=== PATIENT | male | born 1945 | race Caucasian/White ===

== ENCOUNTER → 2017-09-04 12:06 | Outpatient (CLI) | payer MEDICARE, OTHER, SELFPAY ==
[2017-09-04 13:58] LABS: Absolute Lymphocyte Count 2.67 X10^3/ul (0.83-4.51); Absolute Neutrophil Count 3.8 X10^3/uL (2.0-7.7); Basophil# 0.03 X10^3/uL; Basophil% 0.4 % (0-1); Eosinophil# 0.11 X10^3/uL; Eosinophils% 1.5 % (0-5); Hematocrit 41.1 % (40-54); Hemoglobin 13.3 g/dl (13.0-16.5); Lymphocyte # 2.67 X10^3/ul (4.0); Lymphocyte % 37.6 % (19-41); Mean Corp Hgb Conc 32.4 g/gl (32-36); Mean Corpuscular Hgb 29.9 pg (27.0-32.0); Mean Corpuscular Volume 92.4 fL (80-94); Mean Platelet Vol. 11.2 fl (6.2-12.0); Monocyte# 0.48 X10^3/uL; Monocyte% 6.8 % (0-10); Neutrophil # 3.82 X10^3/uL (2.7-7.7); Neutrophil % 53.7 % (47-70); Platelet Count 312 K/mm3 (150-450); RBC Distribution Width CV 15.9 % (11.6-14.6); RBC Distribution Width SD 52.2 fl (35.1-43.9); Red Blood Count 4.45 M/mm3 (4.6-6.2); White Blood Count 7.1 K/mm3 (4.4-11.0)
[2017-09-04 14:03] LABS: POSITIVE COUNT NO; POSITIVE DIFFERENTIAL NO; POSITIVE MORPHOLOGY NO
[2017-09-04 14:09] LABS: ALB/GLOB Ratio 0.9 RATIO (0.9-2.4); AST(SGOT) 22 U/L (15-37); Alanine Aminotransfer ALT/SGPT 23 U/L (16-61); Albumin, Serum 3.3 g/dL (3.2-5.0); Alkaline Phosphatase 61 U/L (45-117); Anion Gap 4 (5-15); BUN 13 mg/dL (7-18); BUN/Creat Ratio 13.7 RATIO (10-20); Calcium,Total 8.7 mg/dL (8.5-10.1); Chloride 107 mmol/L (98-107); Creatinine, Serum 0.95 mg/dL (0.70-1.30); EST Glomerular Filtration Rate 83 mL/min (>60); Est Glom Filt Rate - Afr Amer 100 mL/min (>60); Globulin 3.7 g/dL (2.2-4.2); Glucose 94 mg/dL (74-106); Potassium 4.2 mmol/L (3.5-5.1); Sodium Level 143 mmol/L (136-145)
== END ==
PROVIDERS: Family Provider Internal Medicine; PCP Internal Medicine; Visit Provider Internal Medicine Rheumatology
DX: M05.70 Rheumatoid arthritis with rheumatoid factor of unspecified site without organ or systems involvement (principal); J44.9 Chronic obstructive pulmonary disease, unspecified; E78.5 Hyperlipidemia, unspecified; N40.1 Benign prostatic hyperplasia with lower urinary tract symptoms; Z79.899 Other long term (current) drug therapy
CPT/HCPCS: 36415; 80053; 85025

== ENCOUNTER → 2017-11-21 11:37 | Outpatient (CLI) | payer MEDICARE, OTHER, SELFPAY ==
[2017-11-21 14:25] LABS: Erythrocyte Sedimentation Rate 10 mm/hr (0-20)
[2017-11-21 14:26] LABS: Absolute Lymphocyte Count 3.09 X10^3/ul (0.83-4.51); Absolute Neutrophil Count 3.9 X10^3/uL (2.0-7.7); Basophil# 0.02 X10^3/uL; Basophil% 0.3 % (0-1); Eosinophil# 0.17 X10^3/uL; Eosinophils% 2.2 % (0-5); Hematocrit 42.6 % (40-54); Hemoglobin 13.5 g/dl (13.0-16.5); Lymphocyte # 3.09 X10^3/ul (4.0); Lymphocyte % 39.9 % (19-41); Mean Corp Hgb Conc 31.7 g/gl (32-36); Mean Corpuscular Hgb 29.4 pg (27.0-32.0); Mean Corpuscular Volume 92.8 fL (80-94); Monocyte# 0.54 X10^3/uL; Neutrophil # 3.91 X10^3/uL (2.7-7.7); Neutrophil % 50.5 % (47-70); Platelet Count 308 K/mm3 (150-450); RBC Distribution Width CV 17.4 % (11.6-14.6); RBC Distribution Width SD 58.3 fl (35.1-43.9); Red Blood Count 4.59 M/mm3 (4.6-6.2); White Blood Count 7.7 K/mm3 (4.4-11.0)
[2017-11-21 14:27] LABS: ALB/GLOB Ratio 0.9 RATIO (0.9-2.4); AST(SGOT) 22 U/L (15-37); Alanine Aminotransfer ALT/SGPT 24 U/L (16-61); Albumin, Serum 3.4 g/dL (3.2-5.0); Alkaline Phosphatase 62 U/L (45-117); Anion Gap 6 (5-15); BUN 13 mg/dL (7-18); BUN/Creat Ratio 13.9 RATIO (10-20); CRP 8.94 mg/L (0.0-3.0); Calcium,Total 8.3 mg/dL (8.5-10.1); Chloride 104 mmol/L (98-107); Creatinine, Serum 0.94 mg/dL (0.70-1.30); EST Glomerular Filtration Rate 84 mL/min (>60); Est Glom Filt Rate - Afr Amer 102 mL/min (>60); Globulin 3.7 g/dL (2.2-4.2); Glucose 79 mg/dL (74-106); POSITIVE COUNT NO; POSITIVE DIFFERENTIAL NO; POSITIVE MORPHOLOGY NO; Potassium 4.1 mmol/L (3.5-5.1); Protein, Total 7.1 g/dL (6.4-8.2); Sodium Level 143 mmol/L (136-145)
== END ==
PROVIDERS: Family Provider Internal Medicine; PCP Internal Medicine; Visit Provider Internal Medicine Rheumatology
DX: M05.70 Rheumatoid arthritis with rheumatoid factor of unspecified site without organ or systems involvement (principal); J44.9 Chronic obstructive pulmonary disease, unspecified; E78.5 Hyperlipidemia, unspecified; N40.1 Benign prostatic hyperplasia with lower urinary tract symptoms; Z79.899 Other long term (current) drug therapy
CPT/HCPCS: 36415; 80053; 85025; 85652; 86140

== ENCOUNTER → 2018-02-12 08:54 | Outpatient (CLI) | payer MEDICARE, OTHER, SELFPAY ==
[2018-02-12 10:45] LABS: Erythrocyte Sedimentation Rate 24 mm/hr (0-20)
[2018-02-12 10:47] LABS: Absolute Neutrophil Count 4.9 X10^3/uL (2.0-7.7); Basophil# 0.05 X10^3/uL; Basophil% 0.5 % (0-1); Eosinophil# 0.23 X10^3/uL; Eosinophils% 2.5 % (0-5); Hematocrit 41.5 % (40-54); Hemoglobin 14.1 g/dl (13.0-16.5); Lymphocyte % 36.8 % (19-41); Mean Corpuscular Hgb 32.3 pg (27.0-32.0); Mean Corpuscular Volume 95.2 fL (80-94); Monocyte# 0.63 X10^3/uL; Monocyte% 6.8 % (0-10); Neutrophil # 4.91 X10^3/uL (2.7-7.7); Neutrophil % 53.3 % (47-70); Platelet Count 305 K/mm3 (150-450); RBC Distribution Width CV 15.5 % (11.6-14.6); RBC Distribution Width SD 52.4 fl (35.1-43.9); Red Blood Count 4.36 M/mm3 (4.6-6.2); White Blood Count 9.2 K/mm3 (4.4-11.0)
[2018-02-12 10:52] LABS: POSITIVE COUNT NO; POSITIVE DIFFERENTIAL NO; POSITIVE MORPHOLOGY NO
[2018-02-12 10:53] LABS: ALB/GLOB Ratio 0.9 RATIO (0.9-2.4); AST(SGOT) 21 U/L (15-37); Alanine Aminotransfer ALT/SGPT 26 U/L (16-61); Albumin, Serum 3.2 g/dL (3.2-5.0); Alkaline Phosphatase 63 U/L (45-117); Anion Gap 9 (5-15); BUN 16 mg/dL (7-18); CRP 6.49 mg/L (0.0-3.0); Calcium,Total 8.6 mg/dL (8.5-10.1); Chloride 107 mmol/L (98-107); Creatinine, Serum 0.89 mg/dL (0.70-1.30); EST Glomerular Filtration Rate 90 mL/min (>60); Est Glom Filt Rate - Afr Amer 108 mL/min (>60); Globulin 3.7 g/dL (2.2-4.2); Glucose 88 mg/dL (74-106); Potassium 4.1 mmol/L (3.5-5.1); Protein, Total 6.9 g/dL (6.4-8.2); Sodium Level 144 mmol/L (136-145)
== END ==
PROVIDERS: Family Provider Internal Medicine; PCP Internal Medicine; Referring Provider Internal Medicine Rheumatology; Visit Provider Internal Medicine Rheumatology
DX: M05.70 Rheumatoid arthritis with rheumatoid factor of unspecified site without organ or systems involvement (principal); J44.9 Chronic obstructive pulmonary disease, unspecified; E78.5 Hyperlipidemia, unspecified; N40.1 Benign prostatic hyperplasia with lower urinary tract symptoms; Z79.899 Other long term (current) drug therapy
CPT/HCPCS: 36415; 80053; 85025; 85652; 86140

== ENCOUNTER → 2018-11-16 10:50 | Outpatient (CLI) | payer MEDICARE, OTHER, SELFPAY ==
[2018-11-16 12:40] LABS: Absolute Lymphocyte Count 3.28 X10^3/ul (0.83-4.51); Absolute Neutrophil Count 4.5 X10^3/uL (2.0-7.7); Basophil# 0.03 X10^3/uL; Basophil% 0.4 % (0-1); Eosinophils% 2.4 % (0-5); Hematocrit 39.7 % (40-54); Hemoglobin 12.7 g/dl (13.0-16.5); Lymphocyte # 3.28 X10^3/ul (4.0); Lymphocyte % 38.6 % (19-41); Mean Corpuscular Volume 93.9 fL (80-94); Mean Platelet Vol. 10.8 fl (6.2-12.0); Monocyte# 0.51 X10^3/uL; Neutrophil # 4.46 X10^3/uL (2.7-7.7); Neutrophil % 52.4 % (47-70); Platelet Count 321 K/mm3 (150-450); RBC Distribution Width CV 16.2 % (11.6-14.6); RBC Distribution Width SD 55.3 fl (35.1-43.9); Red Blood Count 4.23 M/mm3 (4.6-6.2); White Blood Count 8.5 K/mm3 (4.4-11.0)
[2018-11-16 12:51] LABS: POSITIVE COUNT NO; POSITIVE DIFFERENTIAL NO; POSITIVE MORPHOLOGY NO
[2018-11-16 13:29] LABS: ALB/GLOB Ratio 0.9 RATIO (0.9-2.4); AST(SGOT) 18 U/L (15-37); Alanine Aminotransfer ALT/SGPT 18 U/L (16-61); Albumin, Serum 3.4 g/dL (3.2-5.0); Alkaline Phosphatase 62 U/L (45-117); Anion Gap 7 (5-15); BUN 17 mg/dL (7-18); BUN/Creat Ratio 16.5 RATIO (10-20); Calcium,Total 8.9 mg/dL (8.5-10.1); Chloride 106 mmol/L (98-107); Creatinine, Serum 1.03 mg/dL (0.70-1.30); EST Glomerular Filtration Rate 75 mL/min (>60); Est Glom Filt Rate - Afr Amer 91 mL/min (>60); Globulin 3.6 g/dL (2.2-4.2); Glucose 97 mg/dL (74-106); Potassium 4.2 mmol/L (3.5-5.1); Sodium Level 142 mmol/L (136-145)
== END ==
PROVIDERS: Family Provider Internal Medicine; PCP Internal Medicine; Referring Provider Internal Medicine Rheumatology; Visit Provider Internal Medicine Rheumatology
DX: M05.70 Rheumatoid arthritis with rheumatoid factor of unspecified site without organ or systems involvement (principal); J44.9 Chronic obstructive pulmonary disease, unspecified; E78.5 Hyperlipidemia, unspecified; N40.1 Benign prostatic hyperplasia with lower urinary tract symptoms; Z79.899 Other long term (current) drug therapy
CPT/HCPCS: 36415; 80053; 85025

== ENCOUNTER → 2019-02-18 09:36 | Outpatient (CLI) | payer MEDICARE, OTHER, SELFPAY ==
[2019-02-18 12:37] LABS: Absolute Lymphocyte Count 2.74 X10^3/uL (0.83-4.51); Absolute Neutrophil Count 3.9 X10^3/uL (2.0-7.7); Basophil# 0.05 X10^3/uL; Basophil% 0.7 % (0-1); Eosinophil# 0.19 X10^3/uL; Eosinophils% 2.6 % (0-5); Hematocrit 42.7 % (40-54); Hemoglobin 13.6 g/dL (13.0-16.5); Lymphocyte # 2.74 X10^3/ul (4.0); Lymphocyte % 37.3 % (19-41); Mean Corp Hgb Conc 31.9 g/dL (32-36); Mean Corpuscular Hgb 30.8 pg (27.0-32.0); Mean Corpuscular Volume 96.6 fL (80-94); Mean Platelet Vol. 11.4 fl (6.2-12.0); Monocyte# 0.42 X10^3/uL; Monocyte% 5.7 % (0-10); NRBC Flagged by Analyzer 0 % (0-5); Neutrophil # 3.93 X10^3/uL (2.7-7.7); Neutrophil % 53.4 % (47-70); POSITIVE MORPHOLOGY YES; Platelet Count 292 K/mm3 (150-450); RBC Distribution Width CV 15.4 % (11.6-14.6); RBC Distribution Width SD 54.7 fl (35.1-43.9); Red Blood Count 4.42 M/mm3 (4.6-6.2); White Blood Count 7.4 K/mm3 (4.4-11.0)
[2019-02-18 12:40] LABS: Differential Indicated SCAN CRITERIA MET
[2019-02-18 12:41] LABS: AST(SGOT) 20 U/L (15-37); Alanine Aminotransfer ALT/SGPT 23 U/L (16-61); Albumin, Serum 3.5 g/dL (3.2-5.0); Alkaline Phosphatase 65 U/L (45-117); Anion Gap 9 (5-15); BUN 18 mg/dL (7-18); BUN/Creat Ratio 17.6 RATIO (10-20); Calcium,Total 8.5 mg/dL (8.5-10.1); Chloride 107 mmol/L (98-107); Creatinine, Serum 1.02 mg/dL (0.70-1.30); EST Glomerular Filtration Rate 76 mL/min (>60); Est Glom Filt Rate - Afr Amer 92 mL/min (>60); Globulin 3.5 g/dL (2.2-4.2); Glucose 77 mg/dL (74-106); Potassium 4.2 mmol/L (3.5-5.1); Sodium Level 144 mmol/L (136-145)
[2019-02-18 13:18] LABS: Reactive Lymphocyte RARE
== END ==
PROVIDERS: Family Provider Internal Medicine; PCP Internal Medicine; Referring Provider Internal Medicine Rheumatology; Visit Provider Internal Medicine Rheumatology
DX: M05.70 Rheumatoid arthritis with rheumatoid factor of unspecified site without organ or systems involvement (principal); J44.9 Chronic obstructive pulmonary disease, unspecified; E78.5 Hyperlipidemia, unspecified; N40.1 Benign prostatic hyperplasia with lower urinary tract symptoms; Z79.899 Other long term (current) drug therapy
CPT/HCPCS: 36415; 80053; 85025

== ENCOUNTER → 2019-02-19 12:28 | Outpatient (CLI) | payer MEDICARE, OTHER, SELFPAY ==
[2019-02-19 12:01] VITALS: BMI 24.7
--- NOTE | 2019-02-19 12:31 | CT_ITS ---
STUDY: CT CHEST WITHOUT CONTRAST- LOW DOSE SCREENING PROTOCOL REASON FOR EXAM: Male, 73 years old. Former smoker. Quit smoking less than 15 years ago 45 pack per year history. No current symptoms of lung cancer or pulmonary infection. Shared decision-making with referring PCP documented in patient's record. RADIATION DOSAGE (If Supplied By Facility): CTDIvol = ( 3.02 ) mGy, DLP = ( 131.34 ) mGycm TECHNIQUE: Low dose screening CT examination performed from the base of the neck to the upper abdomen. Sagittal and coronal reformatted images performed. Sagittal and coronal MIP images provided. The measurements provided are average, rounded measurements per ACR guidelines. COMPARISON: None. FINDINGS: Mild emphysematous changes. Some groundglass density in the inferior right lower lobe the lungs consistent with subsegmental atelectasis or pneumonitis. No noncalcified nodule or mass. There is no demonstrated pleural abnormality. Normal heart and pericardium. There are calcifications of the coronary arteries. Normal mediastinum. Normal hilar regions. Normal unenhanced pulmonary arteries. Normal aorta arch and descending thoracic aorta. Normal osseous structures. There is no demonstrated abnormality of the visualized upper abdomen. CT/Low Dose CT Lung Screening IMPRESSION: 1. No significant indeterminate incidental findings requiring additional imaging. 2. Incidental findings include some right lower lobe subsegmental atelectasis or pneumonitis.. ASSESSMENT CATEGORY: LungRADS 1 - Negative. Continue annual screening with LDCT in 12 months, per established ACR guidelines. Electronically Signed: Angel Castaneda MD at 13:27 EDT Tel , Service support ,
== END ==
PROVIDERS: Family Provider Internal Medicine; PCP Internal Medicine; Referring Provider Nurse Practitioner Family; Visit Provider Nurse Practitioner Family
DX: Z12.2 Encounter for screening for malignant neoplasm of respiratory organs (principal); Z87.891 Personal history of nicotine dependence
CPT/HCPCS: G0297

== ENCOUNTER → 2019-02-20 10:45 | Outpatient (CLI) | payer MEDICARE, OTHER, SELFPAY ==
[2019-02-19 12:01] VITALS: BMI 24.7
--- NOTE | 2019-02-20 11:10 | ECHOD_ITS ---
Reason For Study: RBBB Procedure This was a 2D Doppler, Color Flow transthoracic echocardiogram. Exam performed in department. Left Ventricle Normal size and thickness. The estimated ejection fraction is 65 %. Stage 1 diastolic dysfunction. No regional wall motion abnormalities noted. Right Ventricle Normal size and thickness. Normal systolic function. Atria Normal left atrium. Normal right atrium. Normal atrial septum. Mitral Valve The mitral valve is structurally normal. No prolapse or stenosis seen. Trivial mitral valve insufficiency. Tricuspid Valve Normal tricuspid valve. Trivial tricuspid valve insufficiency. Right ventricular systolic pressure estimated to be 23 mmHg. Aortic Valve Normal aortic valve. Trisinus/trileaflet aortic valve. Pulmonic Valve Normal pulmonic valve. Great Vessels Normal aortic root. Normal arch. Normal inferior vena cava. Inferior vena cava collapse with sniff. Pericardium/Pleural No pericardial effusion. MMode/2D Measurements & Calculations LVIDd: 4.7 cm IVSd: 0.87 cm Ao root diam: 3.8 cm LVIDs: 3.0 cm LVPWd: 1.0 cm RVDd: 3.5 cm FS: 35.5 % LAV(MOD-bp): 47.0 ml LA A4 area: 16.0 cm2 LA dimension(2D): 3.0 cm LAV(MOD-bp) Indexed: 23.1 ml/m2 LAV(MOD-sp2): 53.1 ml LAV(MOD-sp4): 39.7 ml RA A4 area: 15.9 cm2 Time Measurements MV dec time: 0.26 sec Doppler Measurements & Calculations MV E max arpan: 64.8 cm/sec Lat Peak E' Arpan: 10.0 cm/sec Med Peak E' Arpan: 9.1 cm/sec MV A max arpan: 76.0 cm/sec E/E' lat: 6.5 E/E' med: 7.1 MV E/A: 0.85 Ao V2 max: 127.0 cm/sec LV V1 max: 102.8 cm/sec PA V2 max: 122.3 cm/sec Ao max P.5 mmHg LV V1 max P.2 mmHg TR max arpan: 212.9 cm/sec TR max P.1 mmHg Interpretation Summary The estimated ejection fraction is 65 %. Stage 1 diastolic dysfunction. Trivial mitral valve insufficiency. Trivial tricuspid valve insufficiency. Right ventricular systolic pressure estimated to be 23 mmHg. Compared to echo report dated , no appreciable changes noted. Ordering Physician: Li Husain Referring Physician: Li Husain Performed By: Itzel Lozano, RUTHY, RVT
== END ==
PROVIDERS: Family Provider Internal Medicine; PCP Internal Medicine; Referring Provider Internal Medicine; Visit Provider Internal Medicine
DX: Z00.01 Encounter for general adult medical examination with abnormal findings (principal); I08.1 Rheumatic disorders of both mitral and tricuspid valves; I45.10 Unspecified right bundle-branch block; I11.9 Hypertensive heart disease without heart failure
CPT/HCPCS: 93306

== ENCOUNTER → 2019-09-25 11:30 | Outpatient (CLI) | payer MEDICARE, OTHER, SELFPAY ==
[2019-02-19 12:01] VITALS: BMI 24.7
[2019-09-25 15:25] LABS: Hemoglobin 12.9 g/dL (13.0-16.5); Mean Corp Hgb Conc 31.5 g/dL (32-36); Mean Corpuscular Hgb 30.1 pg (27.0-32.0); Mean Corpuscular Volume 95.6 fL (80-94); Mean Platelet Vol. 11.1 fl (6.2-12.0); Platelet Count 326 K/mm3 (150-450); RBC Distribution Width CV 15.4 % (11.6-14.6); RBC Distribution Width SD 53.4 fl (35.1-43.9); Red Blood Count 4.29 M/mm3 (4.6-6.2); White Blood Count 8.7 K/mm3 (4.4-11.0)
[2019-09-25 15:46] LABS: ALB/GLOB Ratio 0.8 RATIO (0.9-2.4); AST(SGOT) 15 U/L (15-37); Alanine Aminotransfer ALT/SGPT 20 U/L (16-61); Albumin, Serum 3.4 g/dL (3.2-5.0); Alkaline Phosphatase 63 U/L (45-117); Anion Gap 6 (5-15); BUN 16 mg/dL (7-18); Calcium,Total 8.7 mg/dL (8.5-10.1); Chloride 105 mmol/L (98-107); Creatinine, Serum 0.89 mg/dL (0.70-1.30); EST Glomerular Filtration Rate 89 mL/min (>60); Est Glom Filt Rate - Afr Amer 108 mL/min (>60); Glucose 83 mg/dL (74-106); Potassium 4.2 mmol/L (3.5-5.1); Protein, Total 7.4 g/dL (6.4-8.2); Sodium Level 141 mmol/L (136-145)
[2019-09-27 17:59] LABS: Carcinoembryonic Antigen 1.2 ng/mL (0.0-4.7)
== END ==
PROVIDERS: PCP Internal Medicine; Referring Provider Colon & Rectal Surgery; Visit Provider Colon & Rectal Surgery
DX: Z85.038 Personal history of other malignant neoplasm of large intestine (principal)
CPT/HCPCS: 36415; 80053; 82378; 85027

== ENCOUNTER → 2020-01-08 13:41 | Outpatient (CLI) | payer MEDICARE, OTHER, SELFPAY ==
[2019-02-19 12:01] VITALS: BMI 24.7
[2020-01-08 15:52] LABS: Absolute Lymphocyte Count 3.92 X10^3/uL (0.83-4.51); Absolute Neutrophil Count 4.9 X10^3/uL (2.0-7.7); Basophil# 0.03 X10^3/uL; Basophil% 0.3 % (0-1); Eosinophil# 0.14 X10^3/uL; Eosinophils% 1.4 % (0-5); Hematocrit 41.6 % (40-54); Hemoglobin 13.5 g/dL (13.0-16.5); Lymphocyte # 3.92 X10^3/ul (4.0); Lymphocyte % 40.6 % (19-41); Mean Corp Hgb Conc 32.5 g/dL (32-36); Mean Corpuscular Hgb 31.1 pg (27.0-32.0); Mean Corpuscular Volume 95.9 fL (80-94); Mean Platelet Vol. 10.9 fl (6.2-12.0); Monocyte# 0.68 X10^3/uL; NRBC Flagged by Analyzer 0 % (0-5); Neutrophil # 4.87 X10^3/uL (2.7-7.7); Neutrophil % 50.5 % (47-70); Platelet Count 301 K/mm3 (150-450); RBC Distribution Width CV 15.2 % (11.6-14.6); RBC Distribution Width SD 52.8 fl (35.1-43.9); Red Blood Count 4.34 M/mm3 (4.6-6.2); White Blood Count 9.7 K/mm3 (4.4-11.0)
[2020-01-08 16:09] LABS: ALB/GLOB Ratio 0.8 RATIO (0.9-2.4); AST(SGOT) 18 U/L (15-37); Alanine Aminotransfer ALT/SGPT 22 U/L (16-61); Albumin, Serum 3.4 g/dL (3.2-5.0); Alkaline Phosphatase 68 U/L (45-117); Anion Gap 0 (5-15); BUN 16 mg/dL (7-18); BUN/Creat Ratio 15.5 RATIO (10-20); Calcium,Total 8.8 mg/dL (8.5-10.1); Chloride 104 mmol/L (98-107); Creatinine, Serum 1.03 mg/dL (0.70-1.30); EST Glomerular Filtration Rate 75 mL/min (>60); Est Glom Filt Rate - Afr Amer 91 mL/min (>60); Glucose 89 mg/dL (74-106); Potassium 4.2 mmol/L (3.5-5.1); Protein, Total 7.4 g/dL (6.4-8.2); Sodium Level 139 mmol/L (136-145)
== END ==
PROVIDERS: PCP Internal Medicine; Referring Provider Internal Medicine Rheumatology; Visit Provider Internal Medicine Rheumatology
DX: M05.70 Rheumatoid arthritis with rheumatoid factor of unspecified site without organ or systems involvement (principal); J44.9 Chronic obstructive pulmonary disease, unspecified; E78.5 Hyperlipidemia, unspecified; N40.1 Benign prostatic hyperplasia with lower urinary tract symptoms; Z79.899 Other long term (current) drug therapy
CPT/HCPCS: 36415; 80053; 85025

== ENCOUNTER → 2020-06-16 14:20 | Outpatient (CLI) | payer MEDICARE, OTHER, SELFPAY ==
[2019-02-19 12:01] VITALS: BMI 24.7
[2020-06-16 18:01] LABS: Absolute Lymphocyte Count 4.07 X10^3/uL (0.83-4.51); Absolute Neutrophil Count 5.2 X10^3/uL (2.0-7.7); Basophil# 0.04 X10^3/uL; Basophil% 0.4 % (0-1); Eosinophil# 0.12 X10^3/uL; Eosinophils% 1.2 % (0-5); Hematocrit 41.6 % (40-54); Hemoglobin 13.6 g/dL (13.0-16.5); Lymphocyte # 4.07 X10^3/ul (4.0); Lymphocyte % 40.3 % (19-41); Mean Corp Hgb Conc 32.7 g/dL (32-36); Mean Corpuscular Hgb 31.3 pg (27.0-32.0); Mean Corpuscular Volume 95.6 fL (80-94); Mean Platelet Vol. 11.2 fl (6.2-12.0); Monocyte# 0.66 X10^3/uL; Monocyte% 6.5 % (0-10); NRBC Flagged by Analyzer 0 % (0-5); Neutrophil # 5.19 X10^3/uL (2.7-7.7); Neutrophil % 51.3 % (47-70); Platelet Count 311 K/mm3 (150-450); RBC Distribution Width CV 14.4 % (11.6-14.6); RBC Distribution Width SD 50.2 fl (35.1-43.9); Red Blood Count 4.35 M/mm3 (4.6-6.2); White Blood Count 10.1 K/mm3 (4.4-11.0)
[2020-06-16 18:25] LABS: ALB/GLOB Ratio 0.9 RATIO (0.9-2.4); AST(SGOT) 22 U/L (15-37); Alanine Aminotransfer ALT/SGPT 23 U/L (16-61); Albumin, Serum 3.5 g/dL (3.2-5.0); Alkaline Phosphatase 70 U/L (45-117); Anion Gap 7 (5-15); BUN 19 mg/dL (7-18); BUN/Creat Ratio 17.6 RATIO (10-20); Calcium,Total 8.8 mg/dL (8.5-10.1); Chloride 104 mmol/L (98-107); Creatinine, Serum 1.08 mg/dL (0.70-1.30); EST Glomerular Filtration Rate 71 mL/min (>60); Est Glom Filt Rate - Afr Amer 86 mL/min (>60); Globulin 3.8 g/dL (2.2-4.2); Glucose 79 mg/dL (74-106); Potassium 4.1 mmol/L (3.5-5.1); Protein, Total 7.3 g/dL (6.4-8.2); Sodium Level 140 mmol/L (136-145)
== END ==
PROVIDERS: PCP Internal Medicine; Referring Provider Internal Medicine Rheumatology; Visit Provider Internal Medicine Rheumatology
DX: M05.70 Rheumatoid arthritis with rheumatoid factor of unspecified site without organ or systems involvement (principal); J44.9 Chronic obstructive pulmonary disease, unspecified; E78.5 Hyperlipidemia, unspecified; N40.1 Benign prostatic hyperplasia with lower urinary tract symptoms; Z79.899 Other long term (current) drug therapy
CPT/HCPCS: 36415; 80053; 85025

== ENCOUNTER → 2020-12-02 11:53 | Outpatient (CLI) | payer MEDICARE, OTHER, SELFPAY ==
[2019-02-19 12:01] VITALS: BMI 24.7
[2020-12-02 15:14] LABS: Absolute Lymphocyte Count 4.79 X10^3/uL (0.83-4.51); Absolute Neutrophil Count 4.5 X10^3/uL (2.0-7.7); Basophil# 0.05 X10^3/uL; Basophil% 0.5 % (0-1); Eosinophil# 0.17 X10^3/uL; Eosinophils% 1.7 % (0-5); Hematocrit 43.1 % (40-54); Hemoglobin 13.8 g/dL (13.0-16.5); Lymphocyte # 4.79 X10^3/ul (0.83-4.51); Lymphocyte % 47.1 % (19-41); Mean Corpuscular Hgb 30.5 pg (27.0-32.0); Mean Corpuscular Volume 95.4 fL (80-94); Monocyte# 0.69 X10^3/uL; Monocyte% 6.8 % (0-10); NRBC Flagged by Analyzer 0 % (0-5); Neutrophil # 4.46 X10^3/uL (2.7-7.7); Neutrophil % 43.7 % (47-70); Platelet Count 279 K/mm3 (150-450); RBC Distribution Width CV 14.4 % (11.6-14.6); RBC Distribution Width SD 49.3 fl (35.1-43.9); Red Blood Count 4.52 M/mm3 (4.6-6.2); White Blood Count 10.2 K/mm3 (4.4-11.0)
[2020-12-02 15:38] LABS: ALB/GLOB Ratio 0.9 RATIO (0.9-2.4); AST(SGOT) 21 U/L (15-37); Alanine Aminotransfer ALT/SGPT 27 U/L (16-61); Albumin, Serum 3.6 g/dL (3.2-5.0); Alkaline Phosphatase 62 U/L (45-117); Anion Gap 4 (5-15); BUN 15 mg/dL (7-18); Calcium,Total 8.9 mg/dL (8.5-10.1); Chloride 104 mmol/L (98-107); Creatinine, Serum 0.94 mg/dL (0.70-1.30); EST Glomerular Filtration Rate 83 mL/min (>60); Est Glom Filt Rate - Afr Amer 101 mL/min (>60); Glucose 73 mg/dL (74-106); Potassium 3.9 mmol/L (3.5-5.1); Protein, Total 7.6 g/dL (6.4-8.2); Sodium Level 138 mmol/L (136-145)
== END ==
PROVIDERS: PCP Internal Medicine; Referring Provider Internal Medicine Rheumatology; Visit Provider Internal Medicine Rheumatology
DX: M05.70 Rheumatoid arthritis with rheumatoid factor of unspecified site without organ or systems involvement (principal); J44.9 Chronic obstructive pulmonary disease, unspecified; E78.5 Hyperlipidemia, unspecified; N40.1 Benign prostatic hyperplasia with lower urinary tract symptoms; Z79.899 Other long term (current) drug therapy
CPT/HCPCS: 36415; 80053; 85025

== ENCOUNTER → 2021-02-15 14:17 | Outpatient (CLI) | payer MEDICARE, OTHER, SELFPAY ==
[2021-02-15 15:30] LABS: Absolute Lymphocyte Count 4.43 X10^3/uL (0.83-4.51); Absolute Neutrophil Count 4.3 X10^3/uL (2.0-7.7); Basophil# 0.04 X10^3/uL; Basophil% 0.4 % (0-1); Eosinophil# 0.16 X10^3/uL; Eosinophils% 1.7 % (0-5); Hematocrit 42.7 % (40-54); Hemoglobin 13.7 g/dL (13.0-16.5); Lymphocyte # 4.43 X10^3/ul (0.83-4.51); Lymphocyte % 45.8 % (19-41); Mean Corp Hgb Conc 32.1 g/dL (32-36); Mean Corpuscular Hgb 30.9 pg (27.0-32.0); Mean Corpuscular Volume 96.4 fL (80-94); Mean Platelet Vol. 10.9 fl (6.2-12.0); Monocyte# 0.77 X10^3/uL; NRBC Flagged by Analyzer 0 % (0-5); Neutrophil # 4.26 X10^3/uL (2.7-7.7); Neutrophil % 43.9 % (47-70); Platelet Count 269 K/mm3 (150-450); RBC Distribution Width CV 14.8 % (11.6-14.6); RBC Distribution Width SD 52.4 fl (35.1-43.9); Red Blood Count 4.43 M/mm3 (4.6-6.2); White Blood Count 9.7 K/mm3 (4.4-11.0)
[2021-02-15 16:02] LABS: ALB/GLOB Ratio 0.9 RATIO (0.9-2.4); AST(SGOT) 18 U/L (15-37); Alanine Aminotransfer ALT/SGPT 24 U/L (16-61); Albumin, Serum 3.5 g/dL (3.2-5.0); Alkaline Phosphatase 66 U/L (45-117); Anion Gap 5 (5-15); BUN 16 mg/dL (7-18); BUN/Creat Ratio 17.1 RATIO (10-20); Calcium,Total 8.7 mg/dL (8.5-10.1); Chloride 103 mmol/L (98-107); Creatinine, Serum 0.94 mg/dL (0.70-1.30); EST Glomerular Filtration Rate 83 mL/min (>60); Est Glom Filt Rate - Afr Amer 101 mL/min (>60); Globulin 4.1 g/dL (2.2-4.2); Glucose 89 mg/dL (74-106); Protein, Total 7.6 g/dL (6.4-8.2); Sodium Level 138 mmol/L (136-145)
== END ==
PROVIDERS: PCP Internal Medicine; Referring Provider Internal Medicine Rheumatology; Visit Provider Internal Medicine Rheumatology
DX: M05.70 Rheumatoid arthritis with rheumatoid factor of unspecified site without organ or systems involvement (principal); J44.9 Chronic obstructive pulmonary disease, unspecified; E78.5 Hyperlipidemia, unspecified; N40.1 Benign prostatic hyperplasia with lower urinary tract symptoms; Z79.899 Other long term (current) drug therapy
CPT/HCPCS: 36415; 80053; 85025

== ENCOUNTER → 2021-04-27 13:36 | Outpatient (CLI) | payer MEDICARE, OTHER, SELFPAY ==
[2021-04-27 15:13] LABS: Absolute Lymphocyte Count 4.87 X10^3/uL (0.83-4.51); Absolute Neutrophil Count 4.1 X10^3/uL (2.0-7.7); Basophil# 0.04 X10^3/uL; Basophil% 0.4 % (0-1); Eosinophil# 0.19 X10^3/uL; Eosinophils% 1.9 % (0-5); Hematocrit 41.3 % (40-54); Hemoglobin 13.6 g/dL (13.0-16.5); Lymphocyte # 4.87 X10^3/ul (0.83-4.51); Lymphocyte % 49.2 % (19-41); Mean Corp Hgb Conc 32.9 g/dL (32-36); Mean Corpuscular Hgb 31.6 pg (27.0-32.0); Mean Corpuscular Volume 95.8 fL (80-94); Mean Platelet Vol. 11.1 fl (6.2-12.0); Monocyte# 0.65 X10^3/uL; Monocyte% 6.6 % (0-10); NRBC Flagged by Analyzer 0 % (0-5); Neutrophil # 4.12 X10^3/uL (2.7-7.7); Neutrophil % 41.7 % (47-70); Platelet Count 264 K/mm3 (150-450); RBC Distribution Width CV 13.7 % (11.6-14.6); RBC Distribution Width SD 48.1 fl (35.1-43.9); Red Blood Count 4.31 M/mm3 (4.6-6.2); White Blood Count 9.9 K/mm3 (4.4-11.0)
[2021-04-27 15:41] LABS: ALB/GLOB Ratio 0.8 RATIO (0.9-2.4); AST(SGOT) 22 U/L (15-37); Alanine Aminotransfer ALT/SGPT 23 U/L (16-61); Albumin, Serum 3.3 g/dL (3.2-5.0); Alkaline Phosphatase 60 U/L (45-117); Anion Gap 4 (5-15); BUN 18 mg/dL (7-18); BUN/Creat Ratio 20.2 RATIO (10-20); Chloride 105 mmol/L (98-107); Creatinine, Serum 0.89 mg/dL (0.70-1.30); EST Glomerular Filtration Rate 88 mL/min (>60); Est Glom Filt Rate - Afr Amer 107 mL/min (>60); Globulin 3.9 g/dL (2.2-4.2); Glucose 84 mg/dL (74-106); Potassium 4.1 mmol/L (3.5-5.1); Protein, Total 7.2 g/dL (6.4-8.2); Sodium Level 139 mmol/L (136-145)
== END ==
PROVIDERS: PCP Internal Medicine; Referring Provider Internal Medicine Rheumatology; Visit Provider Internal Medicine Rheumatology
DX: M05.70 Rheumatoid arthritis with rheumatoid factor of unspecified site without organ or systems involvement (principal); J44.9 Chronic obstructive pulmonary disease, unspecified; E78.5 Hyperlipidemia, unspecified; N40.1 Benign prostatic hyperplasia with lower urinary tract symptoms; Z79.899 Other long term (current) drug therapy
CPT/HCPCS: 36415; 80053; 85025

== ENCOUNTER → 2021-06-08 13:18 | Outpatient (CLI) | payer MEDICARE, OTHER, SELFPAY ==
[2021-06-08 14:13] LABS: Hematocrit 40.2 % (40-54); Hemoglobin 13.1 g/dL (13.0-16.5); Mean Corp Hgb Conc 32.6 g/dL (32-36); Mean Corpuscular Hgb 30.6 pg (27.0-32.0); Mean Corpuscular Volume 93.9 fL (80-94); Mean Platelet Vol. 10.4 fl (6.2-12.0); Platelet Count 335 K/mm3 (150-450); RBC Distribution Width CV 13.8 % (11.6-14.6); RBC Distribution Width SD 46.6 fl (35.1-43.9); Red Blood Count 4.28 M/mm3 (4.6-6.2); White Blood Count 8.6 K/mm3 (4.4-11.0)
[2021-06-08 14:38] LABS: ALB/GLOB Ratio 0.7 RATIO (0.9-2.4); AST(SGOT) 18 U/L (15-37); Alanine Aminotransfer ALT/SGPT 20 U/L (16-61); Albumin, Serum 3.1 g/dL (3.2-5.0); Alkaline Phosphatase 62 U/L (45-117); Anion Gap 4 (5-15); BUN 18 mg/dL (7-18); BUN/Creat Ratio 21.8 RATIO (10-20); Calcium,Total 8.6 mg/dL (8.5-10.1); Chloride 104 mmol/L (98-107); Creatinine, Serum 0.83 mg/dL (0.70-1.30); EST Glomerular Filtration Rate 96 mL/min (>60); Est Glom Filt Rate - Afr Amer 117 mL/min (>60); Globulin 4.2 g/dL (2.2-4.2); Glucose 91 mg/dL (74-106); Potassium 4.1 mmol/L (3.5-5.1); Protein, Total 7.3 g/dL (6.4-8.2); Sodium Level 137 mmol/L (136-145)
== END ==
PROVIDERS: PCP Internal Medicine
DX: Z85.038 Personal history of other malignant neoplasm of large intestine (principal)
CPT/HCPCS: 36415; 80053; 82378; 85027

== ENCOUNTER 2021-08-26 14:16 | Outpatient (CLI) | payer MEDICARE, OTHER, SELFPAY ==
[2021-08-26 18:13] LABS: Absolute Lymphocyte Count 4.53 X10^3/uL (0.83-4.51); Absolute Neutrophil Count 5.1 X10^3/uL (2.0-7.7); Basophil# 0.04 X10^3/uL; Basophil% 0.4 % (0-1); Eosinophil# 0.15 X10^3/uL; Eosinophils% 1.4 % (0-5); Hematocrit 39.1 % (40-54); Hemoglobin 12.9 g/dL (13.0-16.5); Lymphocyte # 4.53 X10^3/ul (0.83-4.51); Lymphocyte % 42.4 % (19-41); Mean Corpuscular Hgb 31.6 pg (27.0-32.0); Mean Corpuscular Volume 95.8 fL (80-94); Mean Platelet Vol. 11.4 fl (6.2-12.0); Monocyte# 0.82 X10^3/uL; Monocyte% 7.7 % (0-10); NRBC Flagged by Analyzer 0 % (0-5); Neutrophil % 47.7 % (47-70); Platelet Count 240 K/mm3 (150-450); RBC Distribution Width CV 15.1 % (11.6-14.6); RBC Distribution Width SD 52.3 fl (35.1-43.9); Red Blood Count 4.08 M/mm3 (4.6-6.2); White Blood Count 10.7 K/mm3 (4.4-11.0)
[2021-08-26 18:26] LABS: ALB/GLOB Ratio 0.9 RATIO (0.9-2.4); AST(SGOT) 20 U/L (15-37); Alanine Aminotransfer ALT/SGPT 21 U/L (16-61); Albumin, Serum 3.2 g/dL (3.2-5.0); Alkaline Phosphatase 60 U/L (45-117); Anion Gap 3 (5-15); BUN 16 mg/dL (7-18); BUN/Creat Ratio 19.1 RATIO (10-20); Calcium,Total 8.4 mg/dL (8.5-10.1); Chloride 105 mmol/L (98-107); Creatinine, Serum 0.84 mg/dL (0.70-1.30); EST Glomerular Filtration Rate 95 mL/min (>60); Est Glom Filt Rate - Afr Amer 115 mL/min (>60); Globulin 3.7 g/dL (2.2-4.2); Glucose 88 mg/dL (74-106); Potassium 3.7 mmol/L (3.5-5.1); Protein, Total 6.9 g/dL (6.4-8.2); Sodium Level 138 mmol/L (136-145)
== END 2021-08-26 23:59 | disposition home or self-care (01) ==
LOC: MTLAB 14:19
PROVIDERS: PCP Internal Medicine; Referring Provider Internal Medicine Rheumatology; Visit Provider Internal Medicine Rheumatology
DX: M05.70 Rheumatoid arthritis with rheumatoid factor of unspecified site without organ or systems involvement (principal); J44.9 Chronic obstructive pulmonary disease, unspecified; E78.5 Hyperlipidemia, unspecified; N40.1 Benign prostatic hyperplasia with lower urinary tract symptoms; Z79.899 Other long term (current) drug therapy
CPT/HCPCS: 36415; 80053; 85025

== ENCOUNTER → 2021-08-30 11:12 | Outpatient (CLI) | payer MEDICARE, OTHER, SELFPAY ==
[2021-08-30 12:11] LABS: Hematocrit 41.5 % (40-54); Hemoglobin 13.5 g/dL (13.0-16.5); Mean Corp Hgb Conc 32.5 g/dL (32-36); Mean Corpuscular Hgb 30.5 pg (27.0-32.0); Mean Corpuscular Volume 93.7 fL (80-94); Platelet Count 257 K/mm3 (150-450); RBC Distribution Width CV 15.2 % (11.6-14.6); RBC Distribution Width SD 51.8 fl (35.1-43.9); Red Blood Count 4.43 M/mm3 (4.6-6.2); White Blood Count 9.1 K/mm3 (4.4-11.0)
[2021-08-30 12:46] LABS: ALB/GLOB Ratio 0.9 RATIO (0.9-2.4); AST(SGOT) 19 U/L (15-37); Alanine Aminotransfer ALT/SGPT 20 U/L (16-61); Albumin, Serum 3.5 g/dL (3.2-5.0); Alkaline Phosphatase 64 U/L (45-117); Anion Gap 5 (5-15); BUN 24 mg/dL (7-18); BUN/Creat Ratio 23.3 RATIO (10-20); Calcium,Total 9.2 mg/dL (8.5-10.1); Chloride 106 mmol/L (98-107); Creatinine, Serum 1.03 mg/dL (0.70-1.30); EST Glomerular Filtration Rate 75 mL/min (>60); Est Glom Filt Rate - Afr Amer 90 mL/min (>60); Globulin 3.8 g/dL (2.2-4.2); Glucose 98 mg/dL (74-106); Potassium 4.1 mmol/L (3.5-5.1); Protein, Total 7.3 g/dL (6.4-8.2); Sodium Level 141 mmol/L (136-145)
[2021-09-01 10:33] LABS: Carcinoembryonic Antigen 5.5 ng/mL (0.0-4.7)
== END ==
PROVIDERS: PCP Internal Medicine
DX: Z85.038 Personal history of other malignant neoplasm of large intestine (principal)
CPT/HCPCS: 36415; 80053; 82378; 85027

== ENCOUNTER 2021-11-23 05:54 | Day surgery (SDC) | payer MEDICARE, OTHER, SELFPAY ==
[2021-11-19 10:14] LABS: Hematocrit 42.6 % (40-54); Hemoglobin 14.4 g/dL (13.0-16.5); Mean Corp Hgb Conc 33.8 g/dL (32-36); Mean Corpuscular Hgb 31.8 pg (27.0-32.0); Platelet Count 268 K/mm3 (150-450); RBC Distribution Width CV 14.6 % (11.6-14.6); RBC Distribution Width SD 49.7 fl (35.1-43.9); Red Blood Count 4.53 M/mm3 (4.6-6.2); White Blood Count 11.4 K/mm3 (4.4-11.0)
[2021-11-19 10:45] LABS: Anion Gap 4 (5-15); BUN 13 mg/dL (7-18); Calcium,Total 9.2 mg/dL (8.5-10.1); Chloride 105 mmol/L (98-107); Creatinine, Serum 0.93 mg/dL (0.70-1.30); EST Glomerular Filtration Rate 84 mL/min (>60); Est Glom Filt Rate - Afr Amer 102 mL/min (>60); Glucose 94 mg/dL (74-106); Potassium 3.9 mmol/L (3.5-5.1); Sodium Level 139 mmol/L (136-145)
[2021-11-23] VITALS (7 sets, daily range): BP systolic 143–161; BP diastolic 68–88; PULSE 57–67; RESP 16; TEMP 36.1–36.6; O2SAT 95–98; BMI 24.7
[2021-11-23] MEDS: Lactated Ringers 1,000 ML 15 ML IV (07:03)
--- NOTE | 2021-11-23 07:27 | PCM.HP.BLA ---
History and Physical Date of Admission: 11/23/21 Date of Service:? 11/19/21 MR#: [id number] Acct: [id number] Name:LONDON ZAPATA Rep #: [id number] : 1945 ? ? Provider: Dr. Lico Leon MD Age/Sex:? 76/M ? ? Location: [facility] Status: Signed Intake Vital Signs ? 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 Lico Leon MD) EXCISION OF LUMP Hard of hearing History of colon cancer History of high cholesterol History of hypertension Rheumatoid arthritis Surgical History?(Updated 11/19/21 @ 09:30 by Melanie Monday) History of appendectomy History of right hemicolectomy History of tonsillectomy Family History? Father?? Myocardial infarctionMother?? ,? AT THE AGE OF 100 ?? No problems noted. Social History?(Updated 11/19/21 @ 09:31 by Melanie Monday) Smoking Status:? Former smoker quit date: 05/14/04 pack-years: 30 Tobacco: How many years used:? 30 Electronic Cigarette Use:? not used second hand exposure:? Yes quit status:? quit date established counseling given:? provider counseling alcohol intake:? current details:? socially substance use type:? does not use HPI HPI HPI: LONDON GONZALEZ, is a 76 M who presents to the office today for consideration of port placement.? Patient was diagnosed with: Colon Cancer, stage II disease, T3, N0, M0 after a right hemicolectomy [address] Mcqueen of [facility].? He states that he has followed up with Dr. Fox, Dr. Mcqueen's partner, following his prison for ongoing surveillance with CEA checks every 6 months.? He was noted to have a rise in his CEA and was referred to Dr. Agustin Sebastian of oncology.? This referral led to a PET scan and ultimately a biopsy of a suspicious retroperitoneal lymph node 2 weeks ago that confirmed a diagnosis of metastatic colon cancer (patient was also noted to have suspicious intrathoracic lesions).? They have met with oncology and plans are to begin chemotherapy on November 29, 2021.? Patient has no prior history of central line placement.? Patient has no pacemaker or intracardiac defibrillator.? Patient has no renal dysfunction and are not on hemodialysis. Mr. Gonzalez is not currently prescribed blood thinners.? He does have a history of rheumatoid arthritis and is managed with methotrexate therapy. He relates a history of a failed stress test some 10 years ago.? He states that he was then referred to [place] for further evaluation where he was told this ultimately represented a false positive test and a cardiac catheterization revealed only mild coronary stenosis.? He also confirms that he has remained free of any chest discomfort and did well in the perioperative phase with his right hemicolectomy 3 years ago. ROS General General: Yes colon cancer; No weight change, appetite, fatigue, breast cancer or weakness HEENT HEENT: No difficulty swallowing, eye injury, eye surgery, swollen glands or hoarseness Endo Endocrine: No thyroid disease, diabetes mellitus, thyroid cancer, Hair loss, heat intolerance or cold intolerance Skin Skin: No rash or changing moles Musc Musculoskeletal: Yes rheumatoid arthritis; No back problems, arthritis, gout or joint pain Cardio Cardiovascular: No murmur, pacemaker, heart disease, atrial fibrillation, high blood pressure, heart attack, heart stent, palpitations, shortness of breat with exertion or chest pain Psych Psychiatric: No depression, anxiety or hearing voices Resp Respiratory: No shortness of breath, No sleep apnea, No cough, No COPD, No asthma, No emphysema and No wheezing Gastro Gastrointestinal: No abdominal pain, No nausea or vomiting, No diarrhea, No constipation, No blood in stool, No acid reflux, No hemorrhoids, No ulcers, No gallbladder problem and No black,tarry stools [place] Hematologic: No blood thinners, No blood disorders, No bleeding, No anemia and No blood clots Neuro Neurologic: No system reviewed and no additional complaints, except as documented, No as per HPI, No abnormal gait, No abnormal hearing, No abnormal movements, No abnormal speech, No behavioral changes, No burning sensations, No confusion, No convulsions, No disequilibrium, No dizziness, No localized weakness, No frequent falls, No headache(s), No lack of coordination, No loss of vision, No memory loss, No numbness, No other visual disturbances, No radicular pain, No restless legs, No sensory deficit, No syncope, No tingling, No tremor(s), No weakness and No other Exam Const General: cooperative and anxious Orientation: alert, awake and oriented x3 Chest Other: No scars, no lesions Resp Effort & Inspection: normal respiratory effort Cardio Rate: regular rate Rhythm: regular rhythm Heart Sounds: S1 normal and S2 normal Assessment and Plan Assessment and Plan (1) Metastatic cancer: ?Status:?Acute ?Comment: This is a 76-year-old male with history of stage II (T3, N0, M0) colon cancer who was noted to have a rise of CEA level during active surveillance and has subsequently been diagnosed with metastatic colon cancer.? He has met with oncology and plans have been made to begin adjuvant therapy 11/29/2021.? We have discussed Port-A-Cath placement at today's visit including a brief description on the procedure as well as precautions on accessing the device.? Mr. Gonzalez expresses appreciation for this discussion and denies any further questions. ?Plan: Right versus left Port-A-Cath placement under ultrasound guidance next week I have re-examined the patient. There are no clinical changes since date of exam. Plan to proceed with right versus left Port-A-Cath placement ultrasound guidance under local MAC as described above.
[2021-11-23] MEDS: Cefazolin 2 GM in 0.9% Normal Saline 100 ML IV (07:35)
[2021-11-23] MEDS: Bupivacaine 0.25% 30 ML Vial (07:54)
--- NOTE | 2021-11-23 08:33 | OP.PCM_ITS ---
Report of Operation Date of Procedure: 11/23/21 Pre-Operative Diagnosis: Metastatic colon carcinoma requiring vascular access f or adjuvant chemotherapy Post-Operative Diagnosis: Same Surgery/Procedure Performed:: Placement of ultrasound-guided right internal jugular Port-A-Cath (8 [place]) Description of Surgical Findings:: ? Placement of 8 [place] PowerPort ISP MRI implantable port with catheter termination just inferior to the right main bronchus within the superior vena cava per intraoperative fluoroscopy Surgeon: Lico Leon Type of Anesthesia: MAC/Supplemental/Local Anesthesiologist: Ever Rios Specimen's removed: Not applicable Drains: Not applicable Estimated Blood Loss (mL): 5 Description of Procedure: After appropriate identification in the preoperative holding area the patient was brought to the operating room. There he was administered preoperative antibiotics and positioned supine on the operating room table. Once sedation was begun, the upper chest and lower cervical region were prepped and draped in usual sterile fashion. A formal timeout was then conducted to confirm both the patient and procedure. Ultrasound was used to localize the right internal jugular vein. Then a wheal of 0.25% bupivacaine (total volume 17 mL for the procedure) was raised superficially in this location and the vein was accessed under direct ultrasound guidance using a Seldinger technique and micro access kit to place a guidewire. The position of the guidewire was confirmed with fluoroscopy. The micro access guidewire was exchanged for standard 035 guidewire using provided sheath. Next the position of the port pocket was determined and again local anesthetic was used to anesthetize the area of both the pocket and the tunneling cephalad. A transverse incision approximately 3 cm in width was made down through the subcutaneous tissue. Selective electrocautery was used to obtain hemostasis. Then with blunt dissection the port pocket was developed. The catheter was connected to the tunneler and was tunneled up to the position of the guidewire. Here the dilator and peel-away sheath were placed over the guidewire and the guidewire was removed. Position was again confirmed with fluoroscopy. The catheter length was estimated based on the external placement of a hemostat to approximate the level of the paulo and the cavoatrial junction. The catheter was then fed into the sheath and slowly the sheath was peeled away as the catheter was inserted fully into the neck. Back in the chest the excess catheter was trimmed and the port was connected to the catheter. The port was tied into the pocket using 2-0 Prolene. Function was then tested using sterile saline on a Goins needle. It was locked with 2.5 mL of heparinized saline (concentration 50U/5mL). The port pocket was closed with a deep dermal stitch using a running 3-0 Vicryl followed by 4-0 Monocryl subcuticular stitch. The 1 cm incision in the neck was closed with a single interrupted subcuticular stitch using 4-0 Monocryl. Dermabond was applied as a dressing. Patient was then aroused from the sedation and taken to PACU for ongoing recovery were a portable chest x-ray was obtained to confirm port positioning and exclude any pneumothorax. Complications None Admit VTE Documentation VTE Mechan Device Prophylaxis: SCD's Procedures Cardiovascular CF Procedures [id number]: [id number] Insert tunneled cv cath
--- NOTE | 2021-11-23 08:36 | DCINST_ITS ---
Discharge Instructions Diet Discharge Diet: No restrictions Activity Discharge Activity: May Shower May shower in (days): 1 Ice area for (Minutes): 20 Additional Activity Instructions:: Limit the activity by the nearest upper extremity for 48 hours postop Dressing / Incision Call your doctor if your incision/area has: Increased Pain/ Swelling, Increased Redness, Foul Smelling Discharge and Swelling at the incision site Call your doctor if you observe: Fever of 101 or Higher Remove Dressing in: do not remove dressing (Dermabond (surgical glue) expected to dissolve spontaneously within 7 to 10 days postop using regular showering) Cleanse incision/area with: Soap & Water Follow Up Care Test Results: Test results from this visit will be discussed in further detail at your follow- up appointment, if applicable. Discharge Plan Admission Primary Reason for Your Visit: Placement of Port-A-Cath Attending Provider: Lico Leon Primary Care Provider: Li Husain Instructions Patient Instructions: Caring for Your Central Vein Access Discharge Orders/Prescriptions Prescriptions: No Action folic acid 1 mg tablet 2 mg PO DAILY methotrexate sodium 15 mg tablet 15 mg tablet 16 mg PO FR multivitamin Capsule 1 cap PO DAILY prednisone 10 mg Tablet 10 mg PO PRN PRN (Reason: RA FLARE) Referrals / Follow Up: Li Husain DO [Primary Care Provider] - Disposition Disposition (needs filled in before D/C Order can be placed): Home, Self Care
--- NOTE | 2021-11-23 08:39 | RAD_ITS ---
STUDY: X-RAY CHEST REASON FOR EXAM: Male, 76 years old. Status post line placement -- Portable TECHNIQUE: Single AP portable view of the chest. COMPARISON: Comparison is made with prior study of 02/11/2014. FINDINGS: A right-sided bianca catheter has been placed with the tip in the proximal portion of the superior vena cava. Patchy infiltrate in the posterior segment of the right lower lobe. Increased markings in the posterior medial segment of the left lower lobe. There is no demonstrated pleural abnormality. Normal size heart. Normal mediastinum and teodora. Normal visualized pulmonary arteries. There is atherosclerotic calcification of the aortic arch with tortuosity. Normal visualized thoracic spine. Normal visualized ribs, clavicles, and shoulders. There is no demonstrated abnormality of the visualized soft tissue structures of the upper abdomen. RAD/CXR for Line Placement IMPRESSION: The tip of the right-sided portacatheter is in the proximal portion of the superior vena cava. Increased markings at both lung bases as described. This is more prominent at the right base. Electronically Signed: Johnny Oakes MD at 9:10 EDT ,
== END 2021-11-23 10:05 | disposition home or self-care (01) ==
LOC: SDC 05:54 → AC 05:54
PROVIDERS: PCP Internal Medicine; Referring Provider Surgery; Visit Provider Surgery
PROC: (CPT 36561; principal; 2021-11-23 07:15)
DX: Z45.2 Encounter for adjustment and management of vascular access device (principal); M06.9 Rheumatoid arthritis, unspecified; J44.9 Chronic obstructive pulmonary disease, unspecified; C18.9 Malignant neoplasm of colon, unspecified; Z87.891 Personal history of nicotine dependence
CPT/HCPCS: 36561; 00532; 36415; 71045; 77001; 80048; 85027; J7120; C1788; J2405

== ENCOUNTER 2021-12-06 08:36 | Outpatient (RCR) | payer MEDICARE, OTHER, SELFPAY ==
[2021-12-06 09:29] LABS: Absolute Lymphocyte Count 4.64 X10^3/uL (0.83-4.51); Absolute Neutrophil Count 3.6 X10^3/uL (2.0-7.7); Basophil# 0.03 X10^3/uL; Basophil% 0.3 % (0-1); Eosinophils% 3.3 % (0-5); Hematocrit 39.7 % (40-54); Hemoglobin 13.2 g/dL (13.0-16.5); Lymphocyte # 4.64 X10^3/ul (0.83-4.51); Lymphocyte % 51.5 % (19-41); Mean Corp Hgb Conc 33.2 g/dL (32-36); Mean Corpuscular Hgb 32.1 pg (27.0-32.0); Mean Corpuscular Volume 96.6 fL (80-94); Mean Platelet Vol. 10.8 fl (6.2-12.0); Monocyte# 0.44 X10^3/uL; Monocyte% 4.9 % (0-10); NRBC Flagged by Analyzer 0 % (0-5); Neutrophil # 3.59 X10^3/uL (2.7-7.7); Neutrophil % 39.9 % (47-70); Platelet Count 188 K/mm3 (150-450); RBC Distribution Width CV 13.8 % (11.6-14.6); RBC Distribution Width SD 48.2 fl (35.1-43.9); Red Blood Count 4.11 M/mm3 (4.6-6.2)
== END 2021-12-12 02:38 | disposition home or self-care (01) ==
LOC: LAB 08:36
PROVIDERS: PCP Internal Medicine
DX: C18.9 Malignant neoplasm of colon, unspecified (principal)
CPT/HCPCS: 36415; 85025

== ENCOUNTER 2022-01-03 10:18 | Outpatient (RCR) | payer MEDICARE, OTHER, SELFPAY ==
[2021-12-20 08:46] LABS: Absolute Lymphocyte Count 5.14 X10^3/uL (0.83-4.51); Absolute Neutrophil Count 2.3 X10^3/uL (2.0-7.7); Basophil# 0.04 X10^3/uL; Basophil% 0.5 % (0-1); Eosinophil# 0.41 X10^3/uL; Hematocrit 39.9 % (40-54); Hemoglobin 13.6 g/dL (13.0-16.5); Lymphocyte # 5.14 X10^3/ul (0.83-4.51); Lymphocyte % 62.3 % (19-41); Mean Corp Hgb Conc 34.1 g/dL (32-36); Mean Corpuscular Hgb 32.3 pg (27.0-32.0); Mean Corpuscular Volume 94.8 fL (80-94); Mean Platelet Vol. 9.9 fl (6.2-12.0); Monocyte% 4.8 % (0-10); NRBC Flagged by Analyzer 0 % (0-5); Neutrophil # 2.25 X10^3/uL (2.7-7.7); Neutrophil % 27.3 % (47-70); POSITIVE DIFFERENTIAL YES; Platelet Count 179 K/mm3 (150-450); RBC Distribution Width CV 14.3 % (11.6-14.6); RBC Distribution Width SD 48.4 fl (35.1-43.9); Red Blood Count 4.21 M/mm3 (4.6-6.2); White Blood Count 8.3 K/mm3 (4.4-11.0)
[2021-12-20 08:48] LABS: Differential Indicated SCAN CRITERIA MET
[2021-12-20 09:10] LABS: Platelet Estimate ADEQUATE (ADEQ); Red Cell Morphology NORM C+C NORMAL (NORM C&C)
[2021-12-20 09:14] LABS: AST(SGOT) 21 U/L (15-37); Alanine Aminotransfer ALT/SGPT 18 U/L (16-61); Albumin, Serum 3.4 g/dL (3.2-5.0); Alkaline Phosphatase 56 U/L (45-117); Anion Gap 0 (5-15); BUN 19 mg/dL (7-18); BUN/Creat Ratio 20.8 RATIO (10-20); Calcium,Total 8.5 mg/dL (8.5-10.1); Chloride 109 mmol/L (98-107); Creatinine, Serum 0.91 mg/dL (0.70-1.30); EST Glomerular Filtration Rate 86 mL/min (>60); Est Glom Filt Rate - Afr Amer 104 mL/min (>60); Globulin 3.5 g/dL (2.2-4.2); Glucose 98 mg/dL (74-106); Potassium 4.4 mmol/L (3.5-5.1); Protein, Total 6.9 g/dL (6.4-8.2); Sodium Level 138 mmol/L (136-145)
[2022-01-03 11:15] LABS: Absolute Lymphocyte Count 4.53 X10^3/uL (0.83-4.51); Basophil# 0.04 X10^3/uL; Basophil% 0.5 % (0-1); Eosinophil# 0.29 X10^3/uL; Eosinophils% 3.9 % (0-5); Hematocrit 41.2 % (40-54); Hemoglobin 13.7 g/dL (13.0-16.5); Lymphocyte # 4.53 X10^3/ul (0.83-4.51); Lymphocyte % 61.3 % (19-41); Mean Corp Hgb Conc 33.3 g/dL (32-36); Mean Corpuscular Hgb 31.3 pg (27.0-32.0); Mean Corpuscular Volume 94.1 fL (80-94); Mean Platelet Vol. 11.3 fl (6.2-12.0); Monocyte# 0.49 X10^3/uL; Monocyte% 6.6 % (0-10); NRBC Flagged by Analyzer 0 % (0-5); Neutrophil # 2.03 X10^3/uL (2.7-7.7); Neutrophil % 27.6 % (47-70); Platelet Count 102 K/mm3 (150-450); RBC Distribution Width CV 14.9 % (11.6-14.6); RBC Distribution Width SD 50.2 fl (35.1-43.9); Red Blood Count 4.38 M/mm3 (4.6-6.2); White Blood Count 7.4 K/mm3 (4.4-11.0)
== END 2022-01-03 18:00 | disposition home or self-care (01) ==
LOC: LAB 10:18
PROVIDERS: Internal Medicine Rheumatology; PCP Internal Medicine
DX: M05.70 Rheumatoid arthritis with rheumatoid factor of unspecified site without organ or systems involvement (principal); J44.9 Chronic obstructive pulmonary disease, unspecified; E78.5 Hyperlipidemia, unspecified; N40.1 Benign prostatic hyperplasia with lower urinary tract symptoms; Z79.899 Other long term (current) drug therapy; C18.9 Malignant neoplasm of colon, unspecified
CPT/HCPCS: 36415; 80053; 85025

== ENCOUNTER 2022-01-31 10:29 | Outpatient (RCR) | payer MEDICARE, OTHER, SELFPAY ==
[2022-01-18 08:40] LABS: Absolute Lymphocyte Count 5.22 X10^3/uL (0.83-4.51); Absolute Neutrophil Count 2.2 X10^3/uL (2.0-7.7); Basophil# 0.03 X10^3/uL; Basophil% 0.4 % (0-1); Differential Indicated SCAN CRITERIA MET; Eosinophil# 0.42 X10^3/uL; Hematocrit 39.6 % (40-54); Hemoglobin 13.2 g/dL (13.0-16.5); Lymphocyte # 5.22 X10^3/ul (0.83-4.51); Lymphocyte % 62.6 % (19-41); Mean Corp Hgb Conc 33.3 g/dL (32-36); Mean Corpuscular Hgb 31.9 pg (27.0-32.0); Mean Corpuscular Volume 95.7 fL (80-94); Mean Platelet Vol. 11.1 fl (6.2-12.0); Monocyte# 0.49 X10^3/uL; Monocyte% 5.9 % (0-10); NRBC Flagged by Analyzer 0 % (0-5); Neutrophil # 2.16 X10^3/uL (2.7-7.7); Neutrophil % 25.9 % (47-70); POSITIVE COUNT YES; POSITIVE DIFFERENTIAL YES; Platelet Count 87 K/mm3 (150-450); RBC Distribution Width CV 15.8 % (11.6-14.6); RBC Distribution Width SD 53.9 fl (35.1-43.9); Red Blood Count 4.14 M/mm3 (4.6-6.2); White Blood Count 8.3 K/mm3 (4.4-11.0)
[2022-01-18 09:12] LABS: Platelet Estimate MOD DEC (ADEQ)
[2022-01-31 11:33] LABS: Absolute Lymphocyte Count 4.05 X10^3/uL (0.83-4.51); Absolute Neutrophil Count 1.2 X10^3/uL (2.0-7.7); Basophil# 0.04 X10^3/uL; Basophil% 0.7 % (0-1); Eosinophil# 0.31 X10^3/uL; Eosinophils% 5.3 % (0-5); Hematocrit 38.9 % (40-54); Lymphocyte # 4.05 X10^3/ul (0.83-4.51); Lymphocyte % 69.5 % (19-41); Mean Corp Hgb Conc 33.4 g/dL (32-36); Mean Corpuscular Hgb 32.6 pg (27.0-32.0); Mean Corpuscular Volume 97.5 fL (80-94); Mean Platelet Vol. 11.2 fl (6.2-12.0); Monocyte# 0.24 X10^3/uL; Monocyte% 4.1 % (0-10); NRBC Flagged by Analyzer 0 % (0-5); Neutrophil # 1.18 X10^3/uL (2.7-7.7); Neutrophil % 20.2 % (47-70); POSITIVE COUNT YES; Platelet Count 64 K/mm3 (150-450); RBC Distribution Width CV 16.4 % (11.6-14.6); RBC Distribution Width SD 58.3 fl (35.1-43.9); Red Blood Count 3.99 M/mm3 (4.6-6.2); White Blood Count 5.8 K/mm3 (4.4-11.0)
== END 2022-01-31 18:00 | disposition home or self-care (01) ==
LOC: LAB 10:29
PROVIDERS: PCP Internal Medicine
DX: C18.9 Malignant neoplasm of colon, unspecified (principal)
CPT/HCPCS: 36415; 85025

== ENCOUNTER 2022-03-14 11:33 | Outpatient (RCR) | payer MEDICARE, OTHER, SELFPAY ==
[2022-02-15 10:04] LABS: Absolute Lymphocyte Count 6.13 X10^3/uL (0.83-4.51); Absolute Neutrophil Count 1.7 X10^3/uL (2.0-7.7); Basophil# 0.04 X10^3/uL; Basophil% 0.5 % (0-1); Eosinophil# 0.44 X10^3/uL; Hematocrit 36.6 % (40-54); Hemoglobin 12.4 g/dL (13.0-16.5); Lymphocyte # 6.13 X10^3/ul (0.83-4.51); Lymphocyte % 69.9 % (19-41); Mean Corp Hgb Conc 33.9 g/dL (32-36); Mean Corpuscular Hgb 33.1 pg (27.0-32.0); Mean Corpuscular Volume 97.6 fL (80-94); Mean Platelet Vol. 12.1 fl (6.2-12.0); Monocyte# 0.46 X10^3/uL; Monocyte% 5.2 % (0-10); NRBC Flagged by Analyzer 0.2 % (0-5); Neutrophil # 1.69 X10^3/uL (2.7-7.7); Neutrophil % 19.3 % (47-70); POSITIVE COUNT YES; POSITIVE DIFFERENTIAL YES; Platelet Count 52 K/mm3 (150-450); RBC Distribution Width CV 17.8 % (11.6-14.6); RBC Distribution Width SD 61.8 fl (35.1-43.9); Red Blood Count 3.75 M/mm3 (4.6-6.2); White Blood Count 8.8 K/mm3 (4.4-11.0)
[2022-02-15 10:08] LABS: Differential Indicated SCAN CRITERIA MET
[2022-02-15 10:43] LABS: Anisocytosis 1+; Platelet Estimate MOD DEC (ADEQ)
[2022-02-28 11:09] LABS: Absolute Lymphocyte Count 5.46 X10^3/uL (0.83-4.51); Absolute Neutrophil Count 1.7 X10^3/uL (2.0-7.7); Basophil# 0.03 X10^3/uL; Basophil% 0.4 % (0-1); Eosinophil# 0.17 X10^3/uL; Eosinophils% 2.1 % (0-5); Hematocrit 37.3 % (40-54); Hemoglobin 12.1 g/dL (13.0-16.5); Lymphocyte # 5.46 X10^3/ul (0.83-4.51); Lymphocyte % 68.4 % (19-41); Mean Corp Hgb Conc 32.4 g/dL (32-36); Mean Corpuscular Volume 101.6 fL (80-94); Mean Platelet Vol. 11.4 fl (6.2-12.0); Monocyte# 0.56 X10^3/uL; NRBC Flagged by Analyzer 0.3 % (0-5); Neutrophil # 1.74 X10^3/uL (2.7-7.7); Neutrophil % 21.8 % (47-70); POSITIVE DIFFERENTIAL YES; POSITIVE MORPHOLOGY YES; Platelet Count 133 K/mm3 (150-450); RBC Distribution Width CV 18.9 % (11.6-14.6); RBC Distribution Width SD 68.9 fl (35.1-43.9); Red Blood Count 3.67 M/mm3 (4.6-6.2)
[2022-02-28 11:18] LABS: Differential Indicated SCAN CRITERIA MET
[2022-02-28 13:54] LABS: Anisocytosis 2+; Platelet Estimate SLT DEC (ADEQ); Red Cell Morphology N CHROM NORMAL (NORM C&C)
[2022-02-28 13:55] LABS: Smudge Cells 1+
[2022-03-01 13:52] LABS: Pathologist Review Reviewed
[2022-03-14 12:36] LABS: Absolute Lymphocyte Count 6.22 X10^3/uL (0.83-4.51); Absolute Neutrophil Count 1.6 X10^3/uL (2.0-7.7); Basophil# 0.04 X10^3/uL; Basophil% 0.5 % (0-1); Eosinophil# 0.32 X10^3/uL; Eosinophils% 3.6 % (0-5); Hematocrit 36.6 % (40-54); Hemoglobin 12.3 g/dL (13.0-16.5); Lymphocyte # 6.22 X10^3/ul (0.83-4.51); Lymphocyte % 70.8 % (19-41); Mean Corp Hgb Conc 33.6 g/dL (32-36); Mean Corpuscular Hgb 34.5 pg (27.0-32.0); Mean Corpuscular Volume 102.5 fL (80-94); Mean Platelet Vol. 11.1 fl (6.2-12.0); Monocyte# 0.59 X10^3/uL; Monocyte% 6.7 % (0-10); NRBC Flagged by Analyzer 0 % (0-5); Neutrophil % 18.2 % (47-70); POSITIVE DIFFERENTIAL YES; POSITIVE MORPHOLOGY YES; Platelet Count 183 K/mm3 (150-450); RBC Distribution Width CV 18.9 % (11.6-14.6); Red Blood Count 3.57 M/mm3 (4.6-6.2); White Blood Count 8.8 K/mm3 (4.4-11.0)
[2022-03-14 12:40] LABS: Differential Indicated SCAN CRITERIA MET
[2022-03-14 13:16] LABS: Anisocytosis 1+; Macrocytosis 1+; Platelet Estimate ADEQUATE (ADEQ)
== END 2022-03-14 18:00 | disposition home or self-care (01) ==
LOC: LAB 11:33
PROVIDERS: PCP Internal Medicine
DX: C18.9 Malignant neoplasm of colon, unspecified (principal)
CPT/HCPCS: 36415; 85025

== ENCOUNTER → 2022-03-16 | Outpatient (CLI) | payer MEDICARE, OTHER, SELFPAY ==
--- NOTE | 2022-03-16 11:10 | EKG12_ITS ---
Test Reason : IA OP Blood Pressure : / mmHG Vent. Rate : 075 BPM Atrial Rate : 075 BPM P-R Int : 126 ms QRS Dur : 092 ms QT Int : 386 ms P-R-T Axes : -27 -45 064 degrees QTc Int : 431 ms Sinus rhythm with Premature atrial complexes Left axis deviation Abnormal ECG Confirmed by LISA MOORE, ALBERTO ([id number]), editorial director PRITESH WRIGHT ([id number]) on 03/17/2022 7:44:14 AM Referred By: Samson Mazariegos Confirmed By:ALBERTO GONZALEZ MD
[2022-03-16 11:46] LABS: Hematocrit 34.2 % (40-54); Hemoglobin 11.7 g/dL (13.0-16.5); Mean Corp Hgb Conc 34.2 g/dL (32-36); Mean Corpuscular Hgb 35.2 pg (27.0-32.0); Mean Platelet Vol. 10.4 fl (6.2-12.0); POSITIVE MORPHOLOGY YES; Platelet Count 175 K/mm3 (150-450); RBC Distribution Width CV 19.1 % (11.6-14.6); RBC Distribution Width SD 71.4 fl (35.1-43.9); Red Blood Count 3.32 M/mm3 (4.6-6.2); White Blood Count 9.8 K/mm3 (4.4-11.0)
[2022-03-16 11:51] LABS: Scan Indicated on CBC? Y/N YES- FLAGS NOTED
[2022-03-16 12:14] LABS: Anion Gap 3 (5-15); BUN 16 mg/dL (7-18); BUN/Creat Ratio 18.8 RATIO (10-20); Chloride 105 mmol/L (98-107); Creatinine, Serum 0.85 mg/dL (0.70-1.30); EST Glomerular Filtration Rate 93 mL/min (>60); Est Glom Filt Rate - Afr Amer 112 mL/min (>60); Glucose 102 mg/dL (74-106); Potassium 3.7 mmol/L (3.5-5.1); Sodium Level 139 mmol/L (136-145)
[2022-03-16 12:37] LABS: Differential Comment SCANNED
== END | disposition home or self-care (01) ==
LOC: PSN 11:08
PROVIDERS: PCP Internal Medicine; Referring Provider Otolaryngology; Visit Provider Otolaryngology
DX: Z01.818 Encounter for other preprocedural examination (principal); Z96.22 Myringotomy tube(s) status
CPT/HCPCS: 36415; 80048; 85027; 93005

== ENCOUNTER 2022-04-12 13:42 | Outpatient (RCR) | payer MEDICARE, OTHER, SELFPAY ==
[2022-03-28 10:21] LABS: Absolute Lymphocyte Count 4.22 X10^3/uL (0.83-4.51); Absolute Neutrophil Count 2.2 X10^3/uL (2.0-7.7); Basophil# 0.03 X10^3/uL; Basophil% 0.4 % (0-1); Eosinophil# 0.15 X10^3/uL; Eosinophils% 2.2 % (0-5); Hematocrit 38.2 % (40-54); Hemoglobin 12.8 g/dL (13.0-16.5); Lymphocyte # 4.22 X10^3/ul (0.83-4.51); Lymphocyte % 60.8 % (19-41); Mean Corp Hgb Conc 33.5 g/dL (32-36); Mean Corpuscular Hgb 35.3 pg (27.0-32.0); Mean Corpuscular Volume 105.2 fL (80-94); Mean Platelet Vol. 10.5 fl (6.2-12.0); Monocyte# 0.39 X10^3/uL; Monocyte% 5.6 % (0-10); NRBC Flagged by Analyzer 0 % (0-5); Neutrophil # 2.15 X10^3/uL (2.7-7.7); POSITIVE MORPHOLOGY YES; Platelet Count 131 K/mm3 (150-450); RBC Distribution Width CV 17.9 % (11.6-14.6); RBC Distribution Width SD 69.8 fl (35.1-43.9); Red Blood Count 3.63 M/mm3 (4.6-6.2); White Blood Count 6.9 K/mm3 (4.4-11.0)
[2022-03-28 10:27] LABS: Differential Indicated SCAN CRITERIA MET
[2022-03-28 11:27] LABS: Anisocytosis 2+; Differential Comment SCANNED; Macrocytosis 1+; Microcytosis 1+
[2022-04-12 15:16] LABS: Absolute Lymphocyte Count 5.58 X10^3/uL (0.83-4.51); Absolute Neutrophil Count 6.4 X10^3/uL (2.0-7.7); Basophil# 0.02 X10^3/uL; Basophil% 0.2 % (0-1); Eosinophil# 0.01 X10^3/uL; Eosinophils% 0.1 % (0-5); Hematocrit 34.9 % (40-54); Hemoglobin 11.7 g/dL (13.0-16.5); Lymphocyte # 5.58 X10^3/ul (0.83-4.51); Mean Corp Hgb Conc 33.5 g/dL (32-36); Mean Corpuscular Hgb 36.1 pg (27.0-32.0); Mean Corpuscular Volume 107.7 fL (80-94); Monocyte# 0.59 X10^3/uL; Monocyte% 4.7 % (0-10); NRBC Flagged by Analyzer 0 % (0-5); Neutrophil # 6.43 X10^3/uL (2.7-7.7); Neutrophil % 50.6 % (47-70); POSITIVE DIFFERENTIAL YES; POSITIVE MORPHOLOGY YES; Platelet Count 180 K/mm3 (150-450); RBC Distribution Width CV 16.3 % (11.6-14.6); RBC Distribution Width SD 64.9 fl (35.1-43.9); Red Blood Count 3.24 M/mm3 (4.6-6.2); White Blood Count 12.7 K/mm3 (4.4-11.0)
[2022-04-12 15:18] LABS: Differential Indicated SCAN CRITERIA MET
[2022-04-12 15:57] LABS: Differential Comment SCANNED
== END 2022-04-13 18:00 | disposition home or self-care (01) ==
LOC: LAB 13:42
PROVIDERS: PCP Internal Medicine
DX: C18.9 Malignant neoplasm of colon, unspecified (principal)
CPT/HCPCS: 36415; 85025

== ENCOUNTER → 2022-05-24 | Outpatient (CLI) | payer MEDICARE, OTHER, SELFPAY ==
--- NOTE | 2022-05-24 07:21 | CT_ITS ---
STUDY: CT CHEST, ABDOMEN T PELVIS WITH CONTRAST REASON FOR EXAM: Male, 77 years old. ASSESS TX RESPONSE; IV ONLY PER DR. LANDAVERDE RADIATION DOSAGE (If Supplied By Facility): CTDIvol = ( 9.87 ) mGy, DLP = ( 865.63 ) mGycm TECHNIQUE: Transaxial imaging was performed following intravenous administration of IV 100mL Isovue-300. Individualized dose optimization techniques were used for this CT. COMPARISON: No relevant priors. FINDINGS: CHEST A right-sided Port-A-Cath is seen with the tip in the superior vena cava. Small benign-appearing bilateral axillary. Faint heterogeneous 3.3 mm nodule in the peripheral lateral aspect of the right upper lobe as seen on axial image #30. 2 mm noncalcified nodule seen in the anterior lateral aspect of the right upper lobe as seen on axial image #48 and coronal image #106. Heterogeneous nodular density in the superior segment of the right lower lobe as seen on axial image #65. This measures 9.1 mm. There is no demonstrated pleural abnormality. There are calcifications of the coronary arteries. Normal mediastinum. Normal hilar regions. Normal unenhanced pulmonary arteries. There is atherosclerotic calcification of the aortic arch with tortuosity and elongation of the aortic arch and descending thoracic aorta. There are degenerative changes of the thoracic spine. There is no demonstrated abnormality of the visualized upper abdomen. ABDOMEN 1 cm cyst in the upper medial portion of the right lobe of the liver at the level of the dome of the liver. Tiny cyst in the medial aspect of the left lobe of the liver. Tiny cyst in the inferior aspect of the right lobe of the 11th. Normal gallbladder and extrahepatic biliary system. Normal spleen. Normal pancreas. Normal bilateral adrenal glands. 1.2 cm cyst in the medial midportion of the right kidney. Normal left kidney. Normal visualized stomach. Normal small intestine. The patient is status post right hemicolectomy. Moderate amount of fecal material is seen in colon. The appendix is visualized and appears normal. There is diffuse atherosclerotic calcification of the abdominal aorta and its major visceral branches., without a demonstrated aneurysm. Normal inferior vena cava. Normal retroperitoneum. Small umbilical hernia. Normal osseous structures. PELVIS Diffuse thickening of the urinary bladder wall. Prostatic enlargement with indentation of the bladder base. The prostate measures 4.2 cm x 5 cm. There is no pelvic fluid. There is no pelvic lymphadenopathy or mass lesion. There is diffuse atherosclerotic calcification of the pelvic arteries. 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 Normal abdominal wall. There are diffuse degenerative changes of the visualized lumbar spine. CT/CT Chest, Abd, Pel w/Contrast IMPRESSION: Faint heterogeneous 3.3 mm nodule in the peripheral lateral aspect of right upper lobe. Heterogeneous nodular density in the superselective the right lower lobe. Small hepatic cysts. Right renal cyst. Status post right hemicolectomy. Moderate amount of fecal material is seen in the colon. Prostatic enlargement with indentation bladder base. Diffuse thickening of the urinary bladder wall. Electronically Signed: Johnny Oakes MD at 13:34 EST ,
[2022-05-24] MEDS: 0.9% Saline Lock 10 ML Syringe IV (07:48)
== END | disposition home or self-care (01) ==
LOC: CT 07:20
PROVIDERS: PCP Internal Medicine; Visit Provider Internal Medicine Medical Oncology
DX: C18.9 Malignant neoplasm of colon, unspecified (principal)
CPT/HCPCS: 71260; 74177; Q9967

== ENCOUNTER → 2022-07-19 | Outpatient (CLI) | payer MEDICARE, OTHER, SELFPAY ==
[2022-07-19 08:51] LABS: Absolute Lymphocyte Count 3.97 X10^3/uL (0.83-4.51); Absolute Neutrophil Count 5.2 X10^3/uL (2.0-7.7); Basophil# 0.05 X10^3/uL; Basophil% 0.5 % (0-1); Eosinophil# 0.27 X10^3/uL; Eosinophils% 2.6 % (0-5); Erythrocyte Sedimentation Rate 23 mm/hr (0-20); Hematocrit 43.2 % (40-54); Lymphocyte # 3.97 X10^3/ul (0.83-4.51); Lymphocyte % 38.6 % (19-41); Mean Corp Hgb Conc 32.4 g/dL (32-36); Mean Corpuscular Hgb 32.6 pg (27.0-32.0); Mean Corpuscular Volume 100.7 fL (80-94); Monocyte# 0.79 X10^3/uL; Monocyte% 7.7 % (0-10); NRBC Flagged by Analyzer 0 % (0-5); Neutrophil # 5.18 X10^3/uL (2.7-7.7); Neutrophil % 50.3 % (47-70); Platelet Count 197 K/mm3 (150-450); RBC Distribution Width CV 14.9 % (11.6-14.6); Red Blood Count 4.29 M/mm3 (4.6-6.2); White Blood Count 10.3 K/mm3 (4.4-11.0)
[2022-07-19 09:18] LABS: ALB/GLOB Ratio 0.8 RATIO (0.9-2.4); AST(SGOT) 22 U/L (15-37); Alanine Aminotransfer ALT/SGPT 20 U/L (16-61); Albumin, Serum 3.3 g/dL (3.2-5.0); Alkaline Phosphatase 55 U/L (45-117); Anion Gap 6 (5-15); BUN 18 mg/dL (7-18); BUN/Creat Ratio 19.8 RATIO (10-20); Calcium,Total 9.3 mg/dL (8.5-10.1); Chloride 105 mmol/L (98-107); Creatinine, Serum 0.91 mg/dL (0.70-1.30); EST Glomerular Filtration Rate 86 mL/min (>60); Est Glom Filt Rate - Afr Amer 104 mL/min (>60); Globulin 4.1 g/dL (2.2-4.2); Glucose 102 mg/dL (74-106); Potassium 4.2 mmol/L (3.5-5.1); Protein, Total 7.4 g/dL (6.4-8.2); Sodium Level 140 mmol/L (136-145)
== END | disposition home or self-care (01) ==
LOC: LAB 08:10
PROVIDERS: PCP Internal Medicine; Referring Provider Internal Medicine Rheumatology; Visit Provider Internal Medicine Rheumatology
DX: M05.70 Rheumatoid arthritis with rheumatoid factor of unspecified site without organ or systems involvement (principal); Z79.899 Other long term (current) drug therapy
CPT/HCPCS: 36415; 80053; 85025; 85652; 86140

== ENCOUNTER → 2022-08-30 | Outpatient (CLI) | payer MEDICARE, OTHER, SELFPAY ==
--- NOTE | 2022-08-30 12:28 | CT_ITS ---
INDICATION: IV ONLY-METASTATIC COLON CA EXAMINATION: CT Chest Abdomen And Pelvis W/ Contrast Injection TECHNIQUE: Images were obtained of the chest, abdomen and pelvis following IV contrast. A radiation dose optimization technique was used for this scan. IV Contrast dosage and agent: IV 100mL Isovue-300 COMPARISON: CT 05/24/2022. FINDINGS: Lungs: Slight interval increase in size of multiple pulmonary metastatic lesions. For example, a 1.1 cm lesion in the lingula (image 39, series 2), previously measuring 9 mm Mediastinum: The cardiomediastinal silhouette is not enlarged. No mediastinal, hilar or axillary adenopathy. Moderate aortic arch and coronary artery calcifications. No obvious filling defect seen within the visualized pulmonary arteries. Pleura: Unremarkable Liver: Stable subcentimeter hypodense lesions in the liver, most like representing cysts. Gallbladder: Unremarkable Spleen: Unremarkable Pancreas: Unremarkable Adrenal Glands: Unremarkable Kidneys: Scattered too small to characterize subcentimeter hypodensities bilaterally. Vasculature: Severe aortoiliac atherosclerotic disease. GI Tract: Status post right hemicolectomy. Lymphadenopathy: None Peritoneum: No ascites. Bladder: Collapsed. Reproductive organs: Unremarkable Bones/Soft tissues: Mild scattered degenerative changes of the visualized spine. Grade 1 retrolisthesis L2 on L3 and L3 on L4. CT/CT Chest, Abd, Pel w/Contrast IMPRESSION: Failed treatment response with slight interval increase in size of multiple pulmonary metastases when compared to prior CT dated 05/24/2022. No new sites of metastatic disease in the chest, abdomen or pelvis. Electronically Signed: Eben Baxter MD at 19:03 EDT ,
== END | disposition home or self-care (01) ==
LOC: CT 12:27
PROVIDERS: PCP Internal Medicine; Referring Provider Internal Medicine Medical Oncology; Visit Provider Internal Medicine Medical Oncology
DX: C18.3 Malignant neoplasm of hepatic flexure (principal); C79.51 Secondary malignant neoplasm of bone; C78.00 Secondary malignant neoplasm of unspecified lung
CPT/HCPCS: 71260; 74177; Q9967

== ENCOUNTER → 2022-10-31 | Outpatient (CLI) | payer MEDICARE, OTHER, SELFPAY ==
--- NOTE | 2022-10-31 14:48 | CT_ITS ---
EXAM: CT CHEST, ABDOMEN AND PELVIS WITH INTRAVENOUS CONTRAST CLINICAL INDICATION: assess response to treatment; met colon ca TECHNIQUE: Helically acquired images were obtained of the chest, abdomen and pelvis with intravenous contrast. This CT exam was performed using one or more of the following dose reduction techniques: automated exposure control, adjustment of the mA and/or kV according to patient size, and/or use of iterative reconstruction technique. RADIATION DOSE: CTDIvol = 13.42 mGy, DLP = 490.90 mGy-cmContrast: IV 100mL Isovue-300 COMPARISON: August 30, 2022. FINDINGS: CHEST: LUNGS AND PLEURAL SPACES: Mildly larger and more solid right lower lobe nodule, 2.1 cm x 2 cm x 1.8 cm, it was 1.7 cm x 1.8 cm x 1.3 cm and more centrally cavitary. Adjacent juxtapleural right lower lobe 9 mm nodule is stable. Stable size and configuration of 1.1 cm and 8mm right upper lobe nodules. Similar appearance of cavitary 1 cm juxtapleural right upper lobe nodule. At least 6 left lung nodules, the largest roughly 1.5 cm, they appear stable. At least 4 additional right lower lobe nodules which appears similar, the largest 2.1 cm x 1.3 cm. Similar band of atelectasis at the posterior left lung base. No pneumothorax. HEART: Unremarkable. Heart size is normal. No pericardial effusion. MEDIASTINUM: Advanced coronary artery calcifications and suspected stents. No significant mediastinal adenopathy. Esophagus is unremarkable. No hiatal hernia. THYROID: Unremarkable. No thyroid lesions. ABDOMEN: LIVER: Similar appearance of 3 subcentimeter hypodense lesions in the liver which may be cysts. GALLBLADDER AND BILE DUCTS: Unremarkable. No calcified gallstones. No gallbladder distention or wall edema. No intra- or extrahepatic biliary ductal dilation. PANCREAS: Similar fullness of the pancreas. No focal cystic or solid mass. SPLEEN: Unremarkable. Normal size without focal cystic or solid mass. ADRENALS: Unremarkable. No nodules. KIDNEYS AND URETERS: Multiple small cysts in the right kidney appears similar. Normal renal size and position. No hydronephrosis. STOMACH AND BOWEL: Oral contrast reached the hepatic flexure. Right hemicolectomy. There is moderate to large amount stool throughout most of the colon and mild stool in the rectum. No stomach or bowel distention. PELVIS: APPENDIX: See above. BLADDER: Unremarkable. REPRODUCTIVE: Unremarkable as visualized. No mass. CHEST, ABDOMEN and PELVIS: INTRAPERITONEAL SPACE: Unremarkable. No ascites or other fluid collection. No free air. BONES/JOINTS: Degenerative change of the left hip joint. No suspicious bone lesions. No suspicious lytic or blastic abnormality. SOFT TISSUES: Unremarkable. No discrete abdominal or pelvic wall hernia. VASCULATURE: Heavily calcified aortoiliac vessels and mild aneurysmal dilatation of distal infrarenal aorta, AP diameter 2.5 cm. Similar mild dilatation of right common iliac artery.. Atherosclerotic changes of the aorta, no aneurysm or dissection. No obvious central pulmonary embolism although this study was not performed with the pulmonary embolism protocol. LYMPH NODES: Similar appearance of a mildly prominent left periaortic 1 cm short axis lymph node. CT/CT Chest, Abd, Pel w/Contrast IMPRESSION: 1. Slightly larger size and less cavitated appearance of a right lower lobe nodule. Otherwise stable pulmonary nodules. 2. Similar appearance of a mildly prominent left periaortic lymph node. 3. Similar few subcentimeter hypodense liver foci, likely cysts. 4. Prominent stool in the residual colon. Electronically Signed: Chayito Sigala MD at 8:34 EDT ,
== END | disposition home or self-care (01) ==
LOC: CT 14:48
PROVIDERS: PCP Internal Medicine; Referring Provider Nurse Practitioner Family; Visit Provider Nurse Practitioner Family
DX: C18.9 Malignant neoplasm of colon, unspecified (principal)
CPT/HCPCS: 71260; 74177; Q9967

== ENCOUNTER 2022-11-11 07:44 | Outpatient (CLI) | payer MEDICARE, OTHER, SELFPAY ==
[2022-11-11] VITALS (13 sets, daily range): BP systolic 125–164; BP diastolic 55–89; PULSE 58–74; RESP 10–24; TEMP 36.7; O2SAT 93–97; BMI 21.7
--- NOTE | 2022-11-11 | IMM_PTH ---
PATIENT: LONDON KING LOC: CT U#:[id number] AGE/SX: 77/M ROOM: RE11/11/[address]: Dr. Manjinder Ward MD : 1945 BED: DIS: 11/11/2022 SPEC #: [id number] RECD: 11/11/22 13:22 STATUS: IVAN REQ #: [id number] BRITT: 11/11/22 00:[address]: Manjinder Ward DEPT: IMMUNOHISTOCHEMISTRY RECD BY: Daniella Espinoza ENTERED: 11/11/22 13:26 SP TYPE: IMMUNO OTHR DR: Dr. Li Husain DO Tissues: Right lower lobe of lung, NOS Procedures: RCC (add) NAPSIN A (add) CK20 (add) CK5-6 (add) CK7 (add) CK8 (add) CHAHAL-2 (add) HEP PAR (add) HER2 CINDY (add) KI-67 (add) P53 (add) TTF1 (add) Pankeratin (initial) P40 (add) CDX2 (add) PSAP (add) PHYSICIAN & INSTITUTION [place] [phone] SPECIMEN INFORMATION: Tissue Source: Right lower lobe lung Clinical Info: Lung cancer Specimen Number: [id number] CPT code: 40060, 56302 x15 METHODOLOGY: Deparaffinized sections of prefer/formalin-fixed tissue or PAP/DQ stained slides are incubated with monoclonal/polyclonal antibodies/oligonucleotide probes. Localization is made via biotin free immunoperoxidase method. Appropriate controls are performed and reacted as expected. Results on target cell population are indicated in the following table: RESULTS: ANTIBODY / CLONE RESULT Her-2neu (CB11) negative (0) AE1-3 (AE1/AE3/PCK26) positive CK7 (OV-TL12/30) negative CK8 (74xqgyX10) positive CK20 (KS20.8) positive CHAHAL-2 (SP21) positive CDX2 ([id number]) positive TTF-1 (8G7G3/1) negative Napsin A (Rabbit Polyclonal) negative HepPar (OCh1E5) negative RCC (PN-15) negative PSAP (PASE/4LJ) negative CK5-6 (D5 & 1684) negative P40 (BC28) negative P53 (DO-7) positive, (Missense mutation pattern) Ki-67 (30-9) positive, high These tests were developed and their performance characteristics determined by [facility]. They may not have been cleared or approved by the U.S. Food and Drug Administration. The FDA has determined that such clearance or approval is not necessary. The above immunohistochemical/dualISH markers are ordered and reviewed by the Pathologist. INTERPRETATION: Right lower lobe lung, CT-guided core biopsy: Metastatic adenocarcinoma, consistent with colonic primary. SJ:nayely 11/16/2022
--- NOTE | 2022-11-11 07:55 | CT_ITS ---
PROCEDURE: CT GUIDED CORE NEEDLE BIOPSY OF A right lower lobe LUNG LESION INDICATION: Male, 77 years old. LUNG NODULES PHYSICIAN: Dr. Champ Mcdonough CONSENT: Written informed consent was obtained having explained the risks, benefits and alternatives in detail with the patient who accepted the risks and agreed to proceed. Laboratory review and clinical assessment was performed. CONSCIOUS SEDATION PROTOCOL: The Drugs used were: 2 mg Versed, IV., and 50 mcg Fentanyl, IV. The sedation time was: 21 minutes. Conscious sedation was started at 9:08 AM and terminated at 9:29 AM. The conscious sedation protocol was independently monitored. RADIATION DOSAGE (If Supplied By Facility): CTDIvol = ( 17 ) mGy, DLP = ( 283.8 ) mGycm. Individualized dose optimization techniques were utilized. Individualized dose optimization techniques were used for this CT. TECHNIQUE: The patient was placed in the prone position. A noncontrast CT was performed to localize the lesion in the posterior medial aspect of the right lower lobe. The skin surface was prepped and draped in a sterile fashion. 1% lidocaine was used for local anesthesia. Using CT guidance, a 20-gauge coaxial biopsy device was advanced to the periphery of the lesion. A total of 5 core specimens were obtained. The specimens were placed in a formalin solution. A post procedure CT demonstrated no adverse sequelae or pneumothorax. The patient tolerated the procedure well without adverse event. A negative biopsy does not exclude malignancy. Further imaging or clinical followup based on patient condition and degree of clinical suspicion for malignancy. Suggest rebiopsy, if biopsy results do not match with clinical scenario. CT/Biopsy/Inj or Needle Placement IMPRESSION: 1. CT directed core needle biopsy of the pleural based nodule in the posterior medial segment of the right lower lobe using CT image guidance with image documentation as described. Pathology results are pending. 2. Conscious Sedation protocol utilized with independent monitoring. Electronically Signed: Johnny Oakes MD at 9:46 EDT ,
[2022-11-11 07:59] LABS: Absolute Neutrophil Count 3.5 X10^3/uL (2.0-7.7); Basophil# 0.04 X10^3/uL; Basophil% 0.5 % (0-1); Eosinophil# 0.23 X10^3/uL; Eosinophils% 2.8 % (0-5); Hematocrit 40.6 % (40-54); Hemoglobin 13.3 g/dL (13.0-16.5); Lymphocyte % 42.2 % (19-41); Mean Corp Hgb Conc 32.8 g/dL (32-36); Mean Corpuscular Hgb 31.7 pg (27.0-32.0); Mean Corpuscular Volume 96.7 fL (80-94); Mean Platelet Vol. 10.1 fl (6.2-12.0); Monocyte# 1.03 X10^3/uL; Monocyte% 12.4 % (0-10); NRBC Flagged by Analyzer 0 % (0-5); Neutrophil # 3.47 X10^3/uL (2.7-7.7); Neutrophil % 41.9 % (47-70); Platelet Count 172 K/mm3 (150-450); RBC Distribution Width CV 14.5 % (11.6-14.6); White Blood Count 8.3 K/mm3 (4.4-11.0)
[2022-11-11 08:15] LABS: International Normalized Ratio 1.1; Partial Thromboplast Time 31.6 Seconds (24.1-36.2); Prothrombin Time (Protime)PT. 13.9 SECONDS (11.7-14.9)
[2022-11-11] MEDS: Midazolam 2 MG/2 ML Syringe IV (09:08)
[2022-11-11] MEDS: fentaNYL 100 MCG/2 ML Ampul IV (09:11)
[2022-11-11] MEDS: Lidocaine 2% (20 ml mdv) 20 ML Vial INFILT (09:23)
--- NOTE | 2022-11-11 09:30 | ASPIGT_PTH ---
PATIENT: LONDON KING LOC: CT U#:[id number] AGE/SX: 77/M ROOM: RE11/11/[address]: Dr. Manjinder Ward MD : 1945 BED: DIS: 11/11/2022 SPEC #: [id number] RECD: 11/11/22 10:06 STATUS: IVAN REMichelle #: [id number] BRITT: 11/11/22 09:[address]: Manjinedr Ward DEPT: SURGICAL PATHOLOGY RECD BY: Kailyn Decker ENTERED: 11/11/22 10:06 SP TYPE: ASP RAD OTHR DR: Dr. Li Husain DO Tissues: Lung, NOS Procedures: FNA Specimen Adequacy Special Stain Group II Surgery Specimen Level IV Imprint (control) HEADER OPERATION: Right lower lobe lung CT-guided core biopsy PRE-OP DIAGNOSIS: Lung cancer TISSUE SUBMITTED: Right lower lobe lung MICROSCOPIC DIAGNOSIS Right lower lobe lung, CT-guided core biopsy: Metastatic adenocarcinoma, consistent with colonic primary. See comment. RICHIE:nayely 11/14/2022 COMMENT The specimen is evaluated at the time of biopsy by Dr. Johnson. Immediate Evaluation = Malignant cells present derived from non-small cell carcinoma. Immunohistochemistry ([id number]) supports the above diagnosis. As per EMR, the patient has history of colon carcinoma. Molecular studies on the tumor can be performed, if clinically indicated, please notify the laboratory if they are needed. Case has been reviewed in consultation with Dr. Vargas who concurs with the above diagnosis. IDC:AM MICROSCOPIC DESCRIPTION Slides are reviewed. GROSS DESCRIPTION Received in fixative is one container labeled with the patient's name and designated right lower lobe lung. The specimen consists of multiple irregular fragments of encarnacion soft tissue that in aggregate measure 1.5 x 0.1 x <0.1 cm. The specimen is totally submitted in one cassette. Two touch imprints are prepared at the time of core biopsy. / RICHIE:nayely 11/11/2022 TC:0 [facility]: [id number], [id number] ADDENDUM ADDENDUM ADDENDUM ADDENDUM ADDENDUM ADDENDUM ADDENDUM ADDENDUM ADDENDUM ADDENDUM ADDENDUM ADDENDUM ADDENDUM ADDENDUM ADDENDUM ADDENDUM 11/29/2022 15:47 ADDENDUM 11/29/2022 15:47 ADDENDUM 11/29/2022 15:47 ADDENDUM 11/29/2022 15:47 ADDENDUM 11/29/2022 15:47 ONKOSIT ADVANCED LUNG CANCER NGS REPORT FROM [facility] RESULT SUMMARY: Abnormal IMMUNOTHERAPY BIOMARKERS: Tumor Mutation [place]: Low (7.8 Mutations / MB) Microsatellite Instability: MSI Negative (1.61%) PERTINENT NEGATIVE RESULTS: The following genes are NEGATIVE for clinically relevant mutations. Mutational hotspots and surrounding exonic regions were interrogated for DNA level point mutations and indels (fusions not assayed). AKT1, ALK, ATR, BRAF, CHEK1, DDR2, EGFR, ERBB2, ERBB3, FGFR1, KRAS, MAP2K1, MET, NRAS, PIK3CA, POLD1, POLE, ROS1, STK11, TERT Please see complete report in e-chart or EMR
--- NOTE | 2022-11-11 09:40 | RAD_ITS ---
STUDY: X-RAY CHEST REASON FOR EXAM: Male, 77 years old. Pneumothorax -- Immediately post lung biopsy TECHNIQUE: AP inspiration and expiration views. COMPARISON: None. FINDINGS: Immediate post right lung biopsy radiographs following the biopsy. No evidence of pneumothorax. RAD/Chest Insp/Exp 2 View IMPRESSION: No evidence of pneumothorax on the immediate post right lung biopsy radiographs. Electronically Signed: Johnny Oakes MD at 9:58 EDT ,
--- NOTE | 2022-11-11 11:23 | RAD_ITS ---
STUDY: X-RAY CHEST REASON FOR EXAM: Male, 77 years old. Pneumothorax -- 2 hours post lung biopsy TECHNIQUE: AP inspiration and expiration views. COMPARISON: Comparison is made with prior study done earlier today. FINDINGS: Lower post right lung biopsy radiographs. No evidence of pneumothorax. RAD/Chest Insp/Exp 2 View IMPRESSION: No evidence of pneumothorax on the two-hour post right lung biopsy radiographs. Electronically Signed: Johnny Oakes MD at 12:06 EDT ,
== END 2022-11-11 23:59 | disposition home or self-care (01) ==
LOC: CT 07:45
PROVIDERS: PCP Internal Medicine; Referring Provider Internal Medicine Medical Oncology; Visit Provider Internal Medicine Medical Oncology
DX: Z01.818 Encounter for other preprocedural examination (principal); C78.01 Secondary malignant neoplasm of right lung; C18.9 Malignant neoplasm of colon, unspecified; J93.9 Pneumothorax, unspecified; R91.8 Other nonspecific abnormal finding of lung field; E83.39 Other disorders of phosphorus metabolism; Z86.79 Personal history of other diseases of the circulatory system
CPT/HCPCS: 32408; 71046; 77012; 85025; 85610; 85730; 88172; 88305; 88313; 88341; 88342; 99156; J7050; A4216; C2613

== ENCOUNTER → 2022-12-14 | Outpatient (CLI) | payer MEDICARE, OTHER, SELFPAY ==
[2022-12-14 12:27] LABS: Absolute Lymphocyte Count 3.47 X10^3/uL (0.83-4.51); Absolute Neutrophil Count 5.4 X10^3/uL (2.0-7.7); Basophil# 0.05 X10^3/uL; Basophil% 0.5 % (0-1); Eosinophil# 0.41 X10^3/uL; Eosinophils% 4.1 % (0-5); Hematocrit 39.7 % (40-54); Hemoglobin 12.9 g/dL (13.0-16.5); Lymphocyte # 3.47 X10^3/ul (0.83-4.51); Lymphocyte % 34.7 % (19-41); Mean Corp Hgb Conc 32.5 g/dL (32-36); Mean Corpuscular Hgb 31.9 pg (27.0-32.0); Mean Corpuscular Volume 98.3 fL (80-94); Mean Platelet Vol. 10.6 fl (6.2-12.0); Monocyte# 0.63 X10^3/uL; Monocyte% 6.3 % (0-10); NRBC Flagged by Analyzer 0 % (0-5); Neutrophil # 5.41 X10^3/uL (2.7-7.7); Neutrophil % 54.1 % (47-70); Platelet Count 222 K/mm3 (150-450); RBC Distribution Width CV 14.4 % (11.6-14.6); RBC Distribution Width SD 51.8 fl (35.1-43.9); Red Blood Count 4.04 M/mm3 (4.6-6.2)
[2022-12-14 13:03] LABS: ALB/GLOB Ratio 0.8 RATIO (0.9-2.4); AST(SGOT) 23 U/L (15-37); Alanine Aminotransfer ALT/SGPT 19 U/L (16-61); Albumin, Serum 3.1 g/dL (3.2-5.0); Alkaline Phosphatase 70 U/L (45-117); Anion Gap 4 (5-15); BUN 15 mg/dL (7-18); BUN/Creat Ratio 17.1 RATIO (10-20); Calcium,Total 8.9 mg/dL (8.5-10.1); Chloride 106 mmol/L (98-107); Creatinine, Serum 0.88 mg/dL (0.70-1.30); EST Glomerular Filtration Rate 90 mL/min (>60); Est Glom Filt Rate - Afr Amer 109 mL/min (>60); Globulin 4.1 g/dL (2.2-4.2); Glucose 93 mg/dL (74-106); Protein, Total 7.2 g/dL (6.4-8.2); Sodium Level 140 mmol/L (136-145)
== END | disposition home or self-care (01) ==
PROVIDERS: PCP Internal Medicine; Referring Provider Internal Medicine Rheumatology; Visit Provider Internal Medicine Rheumatology
DX: M05.79 Rheumatoid arthritis with rheumatoid factor of multiple sites without organ or systems involvement (principal); Z79.899 Other long term (current) drug therapy
CPT/HCPCS: 36415; 80053; 85025

== ENCOUNTER → 2023-02-13 | Outpatient (CLI) | payer MEDICARE, OTHER, SELFPAY ==
--- NOTE | 2023-02-13 13:17 | CT_ITS ---
STUDY: CT CHEST, ABDOMEN T PELVIS WITH CONTRAST REASON FOR EXAM: Male, 77 years old. Metastatic colon cancer RADIATION DOSAGE (If Supplied By Facility): CTDIvol = ( 13.08 ) mGy, DLP = ( 854.08 ) mGycm TECHNIQUE: Transaxial imaging was performed following intravenous administration of 100mL Isovue-300. Individualized dose optimization techniques were used for this CT. COMPARISON: 10/31/2022 FINDINGS: CHEST Multiple bilateral pulmonary nodules show progression in size with scattered new nodules since prior study. Dominant nodule superior segment right lower lobe currently measures 2.8 x 2.3 cm compared to prior measurements 1.7 x 1.6 cm at the same level. No consolidations or pleural effusions. Normal heart and pericardium. No mediastinal or hilar adenopathy. Stable 3.4 cm ectasia ascending aorta. No aortic dissection. No acute or aggressive osseous abnormality. ABDOMEN Stable subcentimeter low-attenuation lesions consistent with cysts or angiomas. No calcified gallstones. Trace amount of pericholecystic fluid. Normal spleen. Normal pancreas. Normal bilateral adrenal glands. No renal masses nor hydronephrosis. Normal visualized stomach. No abnormal bowel distention. Stable changes from right hemicolectomy. Normal abdominal aorta. Normal inferior vena cava. Increasing retroperitoneal adenopathy. Fat-containing umbilical hernia. No acute or aggressive osseous abnormality. PELVIS Bladder nondistended. There is no pelvic fluid. There is no pelvic lymphadenopathy or mass lesion. Normal visualized pelvic arteries. Normal lower abdominal wall. No acute or aggressive osseous abnormality. CT/CT Chest, Abd, Pel w/Contrast IMPRESSION: Increasing size and number of multiple pulmonary nodules consistent with progression of disease. Progression of retroperitoneal adenopathy. Pericholecystic fluid without evidence of gallstones. Consider correlation with gallbladder ultrasound as clinically indicated. Electronically Signed: Huseyin Méndez MD at 17:25 EDT ,
== END | disposition home or self-care (01) ==
LOC: CT 13:14
PROVIDERS: PCP Internal Medicine; Referring Provider Internal Medicine Medical Oncology; Visit Provider Internal Medicine Medical Oncology
DX: C18.3 Malignant neoplasm of hepatic flexure (principal); C79.51 Secondary malignant neoplasm of bone; C78.00 Secondary malignant neoplasm of unspecified lung
CPT/HCPCS: 71260; 74177; Q9967

== ENCOUNTER 2023-02-23 12:19 | Emergency (ER) | payer MEDICARE, OTHER, SELFPAY ==
[2023-02-23 12:21] VITALS: BP 114/97; PULSE 96; RESP 18; TEMP 35.8; O2SAT 95; BMI 20.5
--- NOTE | 2023-02-23 14:01 | US_ITS ---
HISTORY: testicular pain TECHNIQUE: Realtime ultrasound of the testicles was performed with grayscale, Color Doppler and spectral Doppler analysis. 105 images. COMPARISON: None. FINDINGS: Right- TESTIS: 2.6 x 3.1 x 1.5 cm. Homogeneous echotexture with simple cysts measuring 3 mm and 4 mm. COLOR DOPPLER: Normal arterial flow present in the testicle with monophasic waveforms. EPIDIDYMIS: 9 mm with a 6 mm cyst. [No focal hyperemia. EXTRATESTICULAR CONTENTS: No significant hydrocele. Left- TESTIS: 2.7 x 3.6 x 1.6 cm. Homogeneous echotexture with a 3 mm cyst. COLOR DOPPLER: Normal arterial flow present in the testicle with monophasic waveforms. EPIDIDYMIS: 7 mm. [No focal hyperemia. EXTRATESTICULAR CONTENTS: No significant hydrocele US/Testicular with Arterial Flow IMPRESSION: Vascular flow demonstrated to both testicles. Small bilateral testicular cysts Electronically Signed: Nasra Krause MD at 15:24 EDT ,
[2023-02-23 14:11] LABS: Bacteria 0 SEEN /hpf (None Seen); Mucous, Urine 0 SEEN /hpf (<or=2+); Red Blood Cells-Urine 0 SEEN /hpf (0-5); Squamous Epithelial Cells - UA 0 SEEN /hpf (0-5); White Blood Cells 0 SEEN /hpf (0-5)
[2023-02-23 14:12] LABS: Color, Urine Yellow (Yellow); Glucose, Dipstick Normal (Normal); Ketone-Dipstick Negative (Negative); Leukocyte Esterase-Dipstick Negative /ul (Negative); Nitrite-Dipstick Negative (Negative); Occult Blood-Urine Negative /ul (Negative); Protein-Dipstick Negative (Negative); Urine Bilirubin Dipstick Negative (Negative); Urine Clarity Clear (Clear); Urine Urobilinogen Normal (Normal)
--- NOTE | 2023-02-23 14:52 | EX.ED.GUMALE ---
HPI History of Present Illness Chief Complaint: Male Pain/Injury Informant: patient Narrative Narrative: 77-year-old male history of metastatic colon carcinoma currently being followed by [facility] presenting with left testicular pain. Patient states for the past couple days he has had pain in the testicles left greater than right. He notes that the left is exquisitely tender. He denies any swelling or redness. No dysuria or urinary frequency. He denies any rectal pain. No bleeding. He denies any rashes. He is not currently on any oncologic treatments as his last treatment was discontinued due to elevated liver enzymes. He called urology has an appointment scheduled for Monday but felt to be good to come in for evaluation. [facility] Medical History Alcohol use Anxiety Cancer COPD (chronic obstructive pulmonary disease) Dermatitis EXCISION OF LUMP Former smoker History of colon cancer History of high cholesterol History of hypertension History of stress test Migraine headache Prerenal azotemia Rheumatoid arthritis Wears glasses Wears hearing aid Home Medications folic acid 1 mg tablet 2 mg PO DAILY 02/19/19 [History Last Taken Unknown] methotrexate sodium 15 mg tablet 16 mg PO FR 11/19/21 [History Last Taken Unknown] prednisone 10 mg tablet 10 mg PO PRN PRN RA FLARE 11/19/21 [History Last Taken Unknown] arginine 7 gram-glutamine 7 gram-calcium HMB 1.5 gram oral powder pack (Micheal) 1 ea PO .qod 12/06/22 [History Last Taken Unknown] food supplemt, lactose-reduced 0.1 gram-1.18 kcal/ mL oral liquid (Ensure Complete) 240 ml PO BID 12/06/22 [History Last Taken Unknown] multivitamin 1 cap PO DAILY 01/05/23 [History Last Taken Unknown] vitamin B complex 1 tab PO Q OTHER DAY 01/05/23 [History Last Taken Unknown] ciprofloxacin HCl 500 mg tablet 500 mg PO BID #14 TABLETS 02/23/23 [Rx Last Taken Unknown] ibuprofen 600 mg tablet 600 mg PO Q8H PRN #15 TABLETS 02/23/23 [Rx Last Taken Unknown] Allergy/AdvReac Type Severity Reaction Status Date / Time No Known Allergies Allergy Verified 02/23/23 12:22 Family History Father Myocardial infarction Mother , AT THE AGE OF 100 Breast cancer Surgical History History of appendectomy History of cardiac catheterization History of right hemicolectomy History of tonsillectomy Social History Smoking Status: Former smoker quit date: 05/14/04 pack-years: 30 Tobacco: How many years used: 30 Electronic Cigarette Use: not used second hand exposure: Yes quit status: quit date established counseling given: provider counseling alcohol intake: current details: socially substance use type: does not use ROS ROS ED Constitutional Constitutional ED: Denies chills or weight loss Eyes Eyes: Denies change in vision or diplopia ENT ENT ED: Denies ear pain, rhinorrhea or sore throat Cardiovascular Cardiovascular: Denies chest pain, orthopnea, palpitations or racing heartbeat Respiratory/Chest Respiratory/Chest: Denies cough, dyspnea or orthopnea Gastrointestinal Gastrointestinal: Denies abdominal pain, diarrhea, nausea or vomiting Genitourinary Genitourinary ED: Reports other Details: Left greater than right testicular pain ; Denies dysuria, hematuria or urinary frequency Musculoskeletal Musculoskeletal: Denies arthralgias, back pain, myalgias or neck pain Integumentary Denies abscess or rash Neurologic Neurologic: Denies headache(s) or weakness Psychiatric Psychiatric: Denies anxiety, depression, suicidal ideation or suicidal thoughts Endocrine Endocrinology: Denies polydipsia, polyphagia or polyuria Allergic/Immunologic Allergic/Immunologic ED: Denies mouth swelling, tongue swelling or urticaria EXAM Physical Exam Const Vital Signs: 02/23/23 12:21 02/23/23 15:26 Temperature 96.5 F L Temperature Source Temporal Pulse Rate 96 72 Respiratory Rate 18 16 Blood Pressure 114/97 H 149/73 H Blood Pressure Mean 102 98 Pulse Ox 95 99 Oxygen Delivery Method Room Air Room Air Positive well nourished and well developed General Appearance ED: well developed HEENT Reports normocephalic, head/scalp atraumatic and moist mucous membranes Eyes PERRL and EOMs intact bilaterally Neck no lymphadenopathy, supple and no JVD Resp normal respiratory effort and clear to auscultation bilaterally Cardio regular rate, regular rhythm and no murmurs GI normal to inspection, nondistended, normoactive bowel sounds and non-tender Palpation: soft Narrative: There is no swelling of the testicles. The left testicle is significantly tender to palpation as is the epididymis. No lesions. No drainage from the penis. Back/Spine no CVA tenderness and normal ROM Extremity normal to inspection General Extremety ED: Negative for edema General Extremity: Negative for edema Neuro oriented x3 and CN's II-XII intact bilaterally Sensorium / Orientation: alert Motor Exam: strength 5/5 throughout Psych mental status grossly normal Mood & Affect: Negative for depressed or tearful Skin no rashes or lesions noted and no wounds MDM MDM MDM Narrative Medical decision making narrative: Patient's urinalysis is normal. Testicular ultrasound demonstrated bilateral testicular flow. There is no significant hyperemia noted. No evidence of torsion. Patient's physical exam shows significant tenderness of the left epididymis. Given his age recent chemotherapy is possible that this is still an epididymitis. I Vanessa place him on Cipro as well as anti-inflammatories would recommend ice supportive briefs. He has a follow-up appointment with urology on Monday which I think would be good to keep. Lab Data Attestation: I reviewed the patient's lab results. Labs: Laboratory Results - last 24 hr 02/23/23 13:40 Urine Color Yellow Urine Clarity Clear Urine pH 6.0 Ur Specific [place] 1.010 Urine Protein Negative Urine Glucose (UA) Normal Urine Ketones Negative Urine Occult Blood Negative Urine Nitrite Negative Urine Bilirubin Negative Urine Urobilinogen Normal Ur Leukocyte Esterase Negative Urine RBC 0 SEEN Urine WBC 0 SEEN Ur Squamous Epith Cells 0 SEEN Urine Bacteria 0 SEEN Urine Mucus 0 SEEN Radiography Diagnostic Testing: Clinical Impression(s) from Imaging Studies Testicular Ultrasound 02/23/23 14:01 IMPRESSION: Vascular flow demonstrated to both testicles. Small bilateral testicular cysts Electronically Signed: aNsra Krause MD at 15:24 EDT , Discharge Plan Triage Chief Complaint: Male Pain/Injury ED Provider: Julian Gee Dx/Rx/DC Orders Clinical Impression: Colon carcinoma metastatic to multiple sites, Testicular pain Instructions: ED Epididymitis Prescriptions: New ciprofloxacin HCl [ciprofloxacin HCl] 500 mg tablet 500 mg PO BID Qty: 14 0RF ibuprofen 600 mg tablet 600 mg PO Q8H PRN Qty: 15 0RF Rx Instructions: take with food No Action folic acid 1 mg tablet 2 mg PO DAILY methotrexate sodium 15 mg tablet 15 mg tablet 16 mg PO FR Ensure Complete 0.1 gram-1.18 kcal/mL liquid 240 ml PO BID Micheal 7-7-1.5 gram powder in packet 1 ea PO .qod vitamin B complex Tablet 1 tab PO Q OTHER DAY prednisone 10 mg Tablet 10 mg PO PRN PRN (Reason: RA FLARE) multivitamin Capsule 1 cap PO DAILY Patient Comments: One-A-Day Men's 55+ Primary Care Provider: Li Husain Referrals: Harsha Mei MD [Med Staff - Active Staff] - Keep Torsten appointment Li Husain DO [Primary Care Provider] - Disposition Disposition: Home, Self Care
[2023-02-23 15:26] VITALS: BP 149/73; PULSE 72; RESP 16; O2SAT 99
== END 2023-02-23 16:30 | disposition home or self-care (01) ==
PROVIDERS: Emergency Provider Emergency Medicine; PCP Internal Medicine; Visit Provider Emergency Medicine
DX: C18.9 Malignant neoplasm of colon, unspecified (principal); N50.812 Left testicular pain; Z87.891 Personal history of nicotine dependence
CPT/HCPCS: 76870; 81001; 93976; 99282

== ENCOUNTER → 2023-05-19 | Outpatient (CLI) | payer MEDICARE, OTHER, SELFPAY ==
--- NOTE | 2023-05-19 08:18 | CT_ITS ---
HISTORY: Colon cancer treated with chemotherapy and hemicolectomy, assess treatment response. TECHNIQUE: Helically acquired images were obtained of the chest, abdomen, and pelvis after the intravenous administration of 100 mL Isovue-300. No oral contrast was administered. 2-D reformatted images provided. A radiation dose optimization technique was used for this scan. 1264 images. COMPARISON: 02/13/2023, 10/31/2022, 08/30/2022. FINDINGS: ----Chest: LARGE AIRWAYS: Grossly patent. LUNGS: Mild hyperinflation with apical emphysema and mild scarring. 8 mm spiculated and cavitary right upper lobe nodule, previously 11 mm and lobulated. Additional right upper lobe pulmonary nodules, either mildly decreased in size or stable in size. Decreased size of right middle lobe nodules measuring up to 10 mm, previously 14 mm. Spiculated and cavitary 2.7 cm mass in the superior segment of the right lower lobe, previously 3.3 cm. Additional right lower lobe pulmonary nodules also decreased in size. Mild atelectasis in the right lower lobe again seen. Decreased size of left upper lobe, lingular, and left lower lobe nodules with a 10 mm spiculated cavitary nodule laterally, previously 13 mm. PLEURA: No pneumothorax or significant pleural effusion. HEART AND PERICARDIUM: Heart within normal limits in size, with coronary artery disease. No significant pericardial effusion. VESSELS: No thoracic aortic aneurysm or dissection flap. Atherosclerosis present. No large central central pulmonary embolism although study not performed with the pulmonary embolism protocol. Right chest wall port with catheter tip in the distal superior vena cava. MEDIASTINUM AND KEYLA: No pathologically enlarged lymph nodes. BONES: Osteopenia and degenerative change without suspicious osteoblastic or osteolytic lesion. ----Abdomen/Pelvis: BOWEL: Bowel nondilated. Right hemicolectomy. Moderate stool in the colon. PERITONEUM: No significant ascites. Small upper abdominal mesenteric lymph nodes without pathologic enlargement. LIVER: Stable subcentimeter hypodensities in the dome and right posterior lobe, likely cysts. GALLBLADDER/BILIARY TREE: Gallbladder wall edema no longer visualized. Calcified gallstone. SPLEEN/PANCREAS/ADRENAL GLANDS: Homogeneous and nonenlarged. KIDNEYS: Stable small right renal cysts. No hydronephrosis. VESSELS: Stable mild ectasia of the infrarenal abdominal aorta. Moderate atherosclerosis of the abdominal aorta and its major branches. 8 mm right retrocrural lymph node, previously 12 mm. 1.4 cm left para-aortic lymph node adjacent to the left renal vein, previously 1.7 cm. Decreased size of additional left para-aortic and aortocaval lymph nodes measuring up to 1.6 cm, previously 3 cm. PELVIC ORGANS: Unchanged appearance. ABDOMINAL WALL: Small fat-containing left inguinal hernia. BONES: Degenerative change. No new osteoblastic or osteolytic lesion. CT/CT Chest, Abd, Pel w/Contrast IMPRESSION: Mild interval decrease in size of bilateral pulmonary metastases. Decreased size of para-aortic and retroperitoneal lymphadenopathy. Unchanged appearance of right hemicolectomy. Moderate stool in the colon. Stable small cysts of the liver and right kidney. Cholelithiasis with interval resolution of gallbladder wall edema. Electronically Signed: Nasra Krause MD at 11:13 EST ,
== END | disposition home or self-care (01) ==
LOC: CT 08:18
PROVIDERS: PCP Internal Medicine; Referring Provider Internal Medicine Medical Oncology; Visit Provider Internal Medicine Medical Oncology
DX: C18.3 Malignant neoplasm of hepatic flexure (principal)
CPT/HCPCS: 71260; 74177; Q9967

== ENCOUNTER → 2023-09-11 | Outpatient (CLI) | payer MEDICARE, OTHER, SELFPAY ==
--- NOTE | 2023-09-11 13:45 | CT_ITS ---
STUDY: CT CHEST, ABDOMEN T PELVIS WITH CONTRAST REASON FOR EXAM: Male, 78 years old. ASSESS TREATMENT RESPONSE-IV ONLY-STAT READ PLEASE RADIATION DOSAGE (If Supplied By Facility): CTDIvol = ( 12.35 ) mGy, DLP = ( 805.18 ) mGycm TECHNIQUE: Transaxial imaging was performed following intravenous administration of IV 100mL Isovue-300. Individualized dose optimization techniques were used for this CT. COMPARISON: No relevant priors. FINDINGS: CHEST There multiple small bilateral pulmonary nodules largest measuring approximately 1.64 x 1.55 cm in the superior segment of the right lower lobe and the largest in the left lower lobe measuring approximately 1.2 x 0.8 cm both of which have decreased in size since prior study. There is no demonstrated pleural abnormality. Normal heart and pericardium. Normal mediastinum. Normal hilar regions. Normal unenhanced pulmonary arteries. Mild atherosclerotic changes of the aorta without evidence for aneurysm. Dorsal spine demonstrates mild degenerative change The appearance of the nodules is stable since prior exam measuring the same or less in size and there are no new nodules identified at this time ABDOMEN Liver is normal in size. There are 2 tiny subcentimeter hypoattenuated densities unchanged in size since prior exam. There are no new nodules or bile duct dilatation.. Tiny calcified gallstone without evidence for acute inflammation Normal spleen. Normal pancreas. Normal bilateral adrenal glands. No evidence for renal obstruction. There is a small cyst in each kidney. Normal visualized stomach. Normal small intestine. Postop changes status post resection of the right colon.. Atherosclerotic changes of the aorta without evidence for aneurysm. Normal inferior vena cava. Mildly enlarged left periaortic node measuring approximately 1.4 cm and aortocaval node measuring 9 mm both of [which decreased in size since previous exam Normal abdominal wall. Normal osseous structures. PELVIS There is incompletely distended thick walled bladder in association with enlarged prostate. There is no pelvic fluid. There is no pelvic lymphadenopathy or mass lesion. Normal visualized pelvic arteries. Small periumbilical hernia containing loop of bowel.. Bilateral fat-containing inguinal hernias. Lumbar spine demonstrates mild degenerative change CT/CT Chest, Abd, Pel w/Contrast IMPRESSION: Persistent multiple bilateral pulmonary metastasis with interval improvement since previous exam. Mild retroperitoneal adenopathy also improved since previous study. No new metastasis or adenopathy. Electronically Signed: Tyler Larkin MD at 18:21 EDT ,
== END | disposition home or self-care (01) ==
LOC: CT 13:45
PROVIDERS: PCP Internal Medicine; Referring Provider Internal Medicine Medical Oncology; Visit Provider Internal Medicine Medical Oncology
DX: C18.3 Malignant neoplasm of hepatic flexure (principal); C78.00 Secondary malignant neoplasm of unspecified lung; C79.51 Secondary malignant neoplasm of bone
CPT/HCPCS: 71260; 74177; Q9967; A4216

== ENCOUNTER → 2024-01-11 | Outpatient (CLI) | payer MEDICARE, OTHER, SELFPAY ==
--- NOTE | 2024-01-11 07:42 | CT_ITS ---
STUDY: CT CHEST, ABDOMEN T PELVIS WITH CONTRAST REASON FOR EXAM: Male, 78 years old. COLON CA-ACCESS TREATMENT-IV ONLY RADIATION DOSAGE (If Supplied By Facility): CTDIvol = ( 11.3 ) mGy, DLP = ( 840 ) mGycm TECHNIQUE: Transaxial imaging was performed following intravenous administration of IV 100mL Isovue-370. Multiplanar coronal and sagittal images were reformatted. Individualized dose optimization techniques were used for this CT. COMPARISON: Comparison is made with prior study September 11, 2023. FINDINGS: CHEST A right-sided portacatheter is seen with the tip in the superior vena cava. Stable 3.7 mm spicular nodule in the anterior lateral aspect of the right lung apex as seen on axial image #32. Stable 6.6 mm nodule in the anterior medial aspect of the right upper lobe as seen on axial image #54. Stable 1.6 cm nodule in the posterior medial aspect of the superior segment of the right lower lobe. Stable 6.1 mm nodule in the peripheral lateral aspect of the lingular segment of the left upper lobe. Stable nodular densities at the right lung base. There is no demonstrated pleural abnormality. There are calcifications of the coronary arteries. Normal mediastinum. Normal hilar regions. Normal unenhanced pulmonary arteries. Normal aorta arch and descending thoracic aorta. There are degenerative changes of the thoracic spine. ABDOMEN Stable 2 tiny subcentimeter cysts in the medial aspect of the midportion of the right lobe of the liver. Stable tiny gallstone. Normal spleen. Normal pancreas. Normal bilateral adrenal glands. Stable small bilateral renal cysts. Normal visualized stomach. Normal small intestine. The patient is status post right hemicolectomy with anastomosis. The appendix is visualized and appears normal. There is diffuse atherosclerotic calcification of the abdominal aorta, without a demonstrated aneurysm. Normal inferior vena cava. Normal retroperitoneum. There is a small umbilical hernia containing fat. There are diffuse degenerative changes of the visualized lumbar spine. PELVIS Mild degree of diffuse bladder wall thickening. Prostatic enlargement with indentation of the bladder base. Normal visualized small intestine. Normal visualized colon. There is no pelvic fluid. There is no pelvic lymphadenopathy or mass lesion. CT/CT Chest, Abd, Pel w/Contrast IMPRESSION: Stable examination. Electronically Signed: Johnny Oakes MD at 14:28 EDT ,
[2024-01-11] MEDS: 0.9 % NaCl (Sterile) Posiflush 10 mL IV (08:05)
== END | disposition home or self-care (01) ==
LOC: CT 07:39
PROVIDERS: PCP Internal Medicine; Referring Provider Internal Medicine Medical Oncology; Visit Provider Internal Medicine Medical Oncology
DX: C18.3 Malignant neoplasm of hepatic flexure (principal); C78.00 Secondary malignant neoplasm of unspecified lung; C79.51 Secondary malignant neoplasm of bone
CPT/HCPCS: 71260; 74177; Q9967; A4216

== ENCOUNTER 2024-07-16 01:47 | Observation (INO) | payer MEDICARE, OTHER, SELFPAY ==
[2024-07-16] VITALS (14 sets, daily range): BP systolic 121–158; BP diastolic 55–83; PULSE 68–82; RESP 16–23; TEMP 36.4–36.9; O2SAT 78–97; BMI 21.9; BMI 19.0
--- NOTE | 2024-07-16 02:07 | EKG12_ITS ---
Test Reason : DYSRHYTHMIA Blood Pressure : */* mmHG Vent. Rate : 69 BPM Atrial Rate : 69 BPM P-R Int : 138 ms QRS Dur : 96 ms QT Int : 414 ms P-R-T Axes : 82 -54 57 degrees QTcB Int : 443 ms Sinus rhythm with occasional Premature ventricular complexes Left axis deviation Septal infarct , age undetermined Abnormal ECG Confirmed by Lico Ramirez ([id number]), video news editor STEPHON CALIXTO ([id number]) on 07/18/2024 8:14:13 AM Referred By: Confirmed By: Lico Ramirez
--- NOTE | 2024-07-16 02:07 | RAD_ITS ---
PROCEDURE: CHEST PA AND LATERAL REASON FOR EXAM: Weakness, cough, nausea TECHNIQUE: AP and lateral views of the chest. 4 total images to include the entire chest COMPARISON: Radiographs 11/11/2022 FINDINGS: Ill-defined streaky opacity at the medial right base may represent developing inflammatory, infectious process. Bilateral lower lung ill-defined nodular opacities consistent with history of metastatic disease. Right port again noted. No pleural effusion. Pulmonary vascularity appears within limits. No focal consolidation. The cardiac and mediastinal contours appear within limits. RAD/Chest PA and Lateral IMPRESSION: Ill-defined streaky opacity at the medial right base may represent developing i nflammatory, infectious process. No focal consolidation. Bilateral lower lung ill-defined nodular opacities consistent with history of m etastatic disease. Right port again noted. No pleural effusion.. Reading Location: [id number]
--- NOTE | 2024-07-16 02:14 | EX.ED.DYSGE1 ---
HPI History of Present Illness Chief Complaint: General Illness Informant: patient, spouse/S.O. and EMS Narrative Narrative: Patient 79-year-old male with history of stage IV colon cancer, peripheral neuropathy, rheumatoid arthritis, hypertension, hyperlipidemia and recent hypomagnesia presenting with generalized weakness, myalgias and nausea. Reports dry heaves. He has a hard time telling exactly how long the symptoms been going on. States has been feeling worse over the past 5 to 6 weeks. He notes he is currently not receiving any chemotherapy secondary to low magnesium. He follows with Dr. Ward and more recently seen Dr. Cary. Notes he is have some chronic dyspnea on exertion but also has lung tumors.. Denies any swelling of his legs. Denies any chest pain. Has noticed some increased lower abdominal pain and states he has a hernia in his lower abdomen. States he has some chronic mucus in his chest that is hard for him to cough up. No fevers reported. States he had 2 bowel movements yesterday. They were darker in color but he states he is also on iron supplements. Denies any julio blood or melena. No other complaints or concerns reported at this time [facility] Medical History Fatigue Prerenal azotemia Dermatitis Wears hearing aid Wears glasses Cancer Anxiety Alcohol use Migraine headache COPD (chronic obstructive pulmonary disease) Former smoker History of stress test History of colon cancer EXCISION OF LUMP History of high cholesterol History of hypertension Rheumatoid arthritis Home Medications ?Medication ?Instructions ?Recorded ?Last Taken ?Type folic acid 1 mg tablet 2 mg PO DAILY 02/19/19 Unknown History methotrexate sodium 15 mg tablet 16 mg PO FR 11/19/21 Unknown History prednisone 10 mg tablet 10 mg PO PRN PRN RA FLARE 11/19/21 Unknown History arginine 7 gram-glutamine 7 1 ea PO .qod 12/06/22 Unknown History gram-calcium HMB 1.5 gram oral powder pack (Micheal) food supplemt, lactose-reduced 0.1 240 ml PO BID 12/06/22 Unknown History gram-1.18 kcal/mL oral liquid (Ensure Complete) vitamin B complex 1 tab PO Q OTHER DAY 01/05/23 Unknown History triamcinolone acetonide 0.1 % 1 applic topical DAILY 06/20/23 Unknown History topical cream ferrous sulfate 325 mg (65 mg 325 mg PO DAILY 07/18/23 Unknown History iron) tablet (Feosol) magnesium 200 mg tablet 400 mg PO DAILY 07/18/23 Unknown History [id number] 300 mcg-K 60 1 tab PO DAILY 07/18/23 Unknown History mcg-lycop 600 mcg-lutein 300 mcg tablet (Men 50 Plus Multivitamin) ondansetron 8 mg disintegrating 8 mg PO Q8H PRN nausea and 08/01/23 Unknown Rx tablet vomiting #30 tabs doxycycline hyclate 100 mg tablet 100 mg PO DAILY 30 days #90 tabs 05/31/24 Unknown Rx Allergy/AdvReac Type Severity Reaction Status Date / Time No Known Allergies Allergy Verified 07/16/24 01:51 Family History Father Myocardial infarction Mother , AT THE AGE OF 100 Breast cancer Surgical History History of cardiac catheterization History of right hemicolectomy History of tonsillectomy History of appendectomy Social History Smoking Status: Former smoker quit date: 05/14/04 pack-years: 30 Tobacco: How many years used: 30 Electronic Cigarette Use: not used second hand exposure: Yes quit status: quit date established alcohol intake: current details: socially substance use type: does not use ROS ROS ED Constitutional Constitutional ED: Reports other Details: Fatigue, generalized weakness ; Denies chills or fever(s) Cardiovascular Cardiovascular: Denies chest pain Respiratory/Chest Respiratory/Chest: Reports dyspnea; Denies cough Gastrointestinal Gastrointestinal: Reports abdominal pain, nausea and vomiting; Denies constipation, diarrhea or melena Genitourinary Genitourinary ED: Reports hematuria; Denies dysuria or urinary frequency Musculoskeletal Musculoskeletal: Denies arthralgias or myalgias Integumentary Reports rash Neurologic Neurologic: Reports weakness Psychiatric Psychiatric: Reports anxiety Hematologic/Lymphatic Hematologic/Lymphatic: Denies easy bleeding or easy bruising EXAM Physical Exam Const Vital Signs: 07/16/24 01:51 07/16/24 01:54 07/16/24 01:54 Temperature 97.8 F 97.8 F Temperature Source Oral Oral Pulse Rate 82 79 Respiratory Rate 22 H 22 H Respiratory Effort Normal Respiratory Pattern Tachypnea Blood Pressure 158/83 H 156/83 H Blood Pressure Mean 108 107 Pulse Ox 96 97 Oxygen Delivery Method Room Air Room Air Oxygen Flow Rate (L/min) 07/16/24 02:54 07/16/24 03:00 07/16/24 03:30 Temperature 97.8 F 97.8 F Temperature Source Oral Oral Pulse Rate 73 73 Respiratory Rate 23 H 23 H Respiratory Effort Respiratory Pattern Blood Pressure 150/80 H 150/80 H Blood Pressure Mean 103 103 Pulse Ox 97 97 78 Oxygen Delivery Method Room Air Room Air Room Air Oxygen Flow Rate (L/min) 07/16/24 03:37 07/16/24 04:00 07/16/24 05:00 Temperature 97.8 F Temperature Source Oral Pulse Rate 81 76 Respiratory Rate 18 16 Respiratory Effort Respiratory Pattern Blood Pressure 134/72 H 130/74 H Blood Pressure Mean 92 92 Pulse Ox 94 94 96 Oxygen Delivery Method Nasal Cannula Nasal Cannula Nasal Cannula Oxygen Flow Rate (L/min) 1 1 1 07/16/24 07:11 Temperature 98.2 F Temperature Source Pulse Rate 71 Respiratory Rate 19 H Respiratory Effort Respiratory Pattern Blood Pressure 123/76 H Blood Pressure Mean 91 Pulse Ox 95 Oxygen Delivery Method Oxygen Flow Rate (L/min) Constitutional Narrative: Chronically ill-appearing General Appearance ED: NAD HEENT Reports dry mucous membranes Mouth ED: Yes dry mucous membranes Mouth: dry mucous membranes Eyes PERRL General Eye ED: Negative for scleral icterus Neck supple and no JVD Chest Wall inspection of chest normal and palpation of chest normal Resp normal respiratory effort and clear to auscultation bilaterally Auscultation: Negative for wheezes or diminished lung sounds Cardio regular rate, regular rhythm and no murmurs GI normal to inspection, nondistended, normoactive bowel sounds and non-tender GI Narrative: No mass, no hernia appreciated Inspection: Negative for abdominal distention Palpation: Negative for tender or guarding Extremity normal to inspection General Extremety ED: Negative for edema General Extremity: Negative for edema Neuro oriented x3 Neuro Narrative: No focal deficits appreciated. Initially his hands are tremulous but this does resolve throughout his stay in the emergency room Sensorium / Orientation: alert Motor Exam: general weakness Psych mental status grossly normal Mood & Affect: anxious Skin Skin Narrative: Chronic appearing maculopapular rash on the neck and upper extremities consistent with a dermatitis MDM MDM MDM Narrative Medical decision making narrative: Patient evaluated for nausea, dry heaves and generalized weakness. He does have stage IV lung cancer and hypomagnesia him that he has been treated for recently. Differential includes electrode abnormality, infection such as pneumonia or urinary tract infection, [place], bowel obstruction and pancreatitis. EKG obtained which does not show any acute ischemic changes and have lower suspicion for ACS as the cause of his symptoms. On further discussion with patient and his it sounds like patient has been declining over the past 5 to 6 weeks. states she has tried to call and get a palliative care consult has not heard back from anyone. They would like to pursue this however they are not sure if they are ready for hospice at this time. I did contact [facility] hospice and they will arrange for home visit. His workup is largely stable with relatively normal CBC and CMP. Lipase is mildly elevated at 96. Urinalysis is not consistent with infection. Does have 5-10 red blood cells and patient notes he does intermittently have some hematuria. Denies any dysuria. Do not think this is UTI. CT of the chest abdomen pelvis is ordered as his chest x-ray shows questionable inflammatory or infectious process of the right base which is reviewed by myself as well as radiology. In addition he has nodular opacities consistent with his metastatic disease. CT of the chest is ordered for further evaluation of this in case he does have a developing pneumonia and abdomen pelvis ordered because of his mildly elevated lipase and lower abdominal pain. CT imaging shows no acute process but does show interval enlargement of bilateral multifocal pulmonary noncalcified nodules consistent with progression of metastatic disease and increase in the size of his retroperitoneal lymph nodes concerning for metastatic disease. There is appearance of occlusion of the left superficial femoral artery. Patient has preserved DP pulses is not complain of any left leg pain so I do not think this is clinically relevant to his presentation today. Patient's magnesium is mildly low at 1.3. Given 2 g IV magnesium. While at rest patient does desaturate slightly displaced on 1 L of oxygen. Will ambulate him for O2 saturation. Patient desaturates to 88% with ambulation. At rest in bed he document going down into the 70s per nursing staff. Is placed on oxygen supplementation. Given his O2 demands I do think he requires admission to arrange for home O2. I question if some of his progressive shortness of breath and generalized weakness has been associate with hypoxia. and patient are agreeable this plan of care. Spoke with oncology, Dr. Magallanes. He is agreeable with this plan for admission. No further recommendations from an oncologic standpoint at this time. Patient does not have any central or hilar PEs on imaging today so low suspicion for PE as a cause of his hypoxia. Case discussed with Dr. Sotelo, hospitalist. Will be admitted for further evaluation of hypoxia and treatment Lab Data Attestation: I reviewed the patient's lab results. Labs: Laboratory Results - last 24 hr 07/16/24 07/16/24 02:19 03:42 WBC 8.6 RBC 4.37 L Hgb 13.1 Hct 39.9 L MCV 91.3 MCH 30.0 MCHC 32.8 RDW Std Deviation 56.0 H RDW Coeff of Nate 16.9 H Plt Count 432 MPV 10.9 Immature Gran % (Auto) 0.300 Neut % (Auto) 52.6 Lymph % (Auto) 36.0 [place] % (Auto) 8.5 Eos % (Auto) 2.0 Baso % (Auto) 0.6 Absolute Neuts (auto) 4.5 Absolute Lymphs (auto) 3.10 Nucleated RBC % 0 Sodium 142 Potassium 3.6 Chloride 100 Carbon Dioxide 25.9 Anion Gap 16 H BUN 17 Creatinine 0.79 Estim Creat Clear Calc 67.46 Est GFR (MDRD) Non-Af 90 BUN/Creatinine Ratio 21.6 H Glucose 142 H Calcium 9.8 Magnesium 1.3 L Total Bilirubin 0.31 AST 27 ALT 16 Alkaline Phosphatase 58 Total Creatine Kinase 47 Total Protein 7.3 Albumin 3.8 Globulin 3.5 Albumin/Globulin Ratio 1.1 Lipase 96 H Urine Color Yellow Urine Clarity Clear Urine pH 7.0 Ur Specific [place] 1.010 Urine Protein 15 H Urine Glucose (UA) Normal Urine Ketones 5 H Urine Occult Blood 25 H Urine Nitrite Negative Urine Bilirubin Negative Urine Urobilinogen Normal Ur Leukocyte Esterase Negative Urine RBC 5-10 SEEN Urine WBC 0-5 SEEN Ur Squamous Epith Cells 0-5 SEEN Urine Bacteria RARE Urine Mucus 0 SEEN Radiography Chest X-Ray - ED: 2 View, Read by ED Physician, Read by Radiologist, Chronic Changes and Right Infiltrate (Questionable at the right base) Diagnostic Testing: Clinical Impression(s) from Imaging Studies Chest X-Ray 07/16/24 02:07 IMPRESSION: Ill-defined streaky opacity at the medial right base may represent developing inflammatory, infectious process. No focal consolidation. Bilateral lower lung ill-defined nodular opacities consistent with history of metastatic disease. Right port again noted. No pleural effusion.. Reading Location: [facility] Chest/Abdomen/Pelvis CT 07/16/24 02:56 IMPRESSION: Mild pulmonary emphysema and mild cylindrical bronchiectasis. Mild lower lobe bronchial wall thickening/prominence may represent bronchitis. No consolidation. Frothy material within the mid to lower trachea extending to the right mainstem bronchus suggest secretions, mucous. The central airways are patent. Interval enlargement of bilateral multifocal pulmonary noncalcified nodules as above consistent with progression of metastatic disease. No evidence of acute intra-abdominal process. Appearance of interval increase in size of retroperitoneal nodes as above concerning for metastatic disease. Appearance of occlusion of the left superficial femoral artery as above. One or more dose reduction techniques were used (e.g., Automated exposure control, adjustment of the mA and/or kV according to patient size, use of iterative reconstruction technique). Reading Location: [facility] Rhythm Strip Rhythm Strip: Sinus Rhythm Rate: 69 Ectopy: PVC(s) EKG Initial EKG: Attestation: I personally reviewed and interpreted this EKG as follows: Interpretation: Sinus Rhythm Comments: Normal sinus rhythm at a rate of 69 bpm with PVCs Left axis deviation Normal intervals Normal ST segment Management Discussion w/another healthcare provider: Hospitalist and Eradicator Discharge Plan Triage Chief Complaint: General Illness ED Provider: Jacqueline Bermeo Dx/Rx/DC Orders Clinical Impression: Hypoxia, Hypomagnesemia, Fatigue, Metastatic cancer Prescriptions: No Action folic acid 1 mg tablet 2 mg PO DAILY methotrexate sodium 15 mg tablet 16 mg PO FR Ensure Complete 0.1 gram-1.18 kcal/mL liquid 240 ml PO BID Micheal 7-7-1.5 gram powder in packet 1 ea PO .qod vitamin B complex Tablet 1 tab PO Q OTHER DAY triamcinolone acetonide 0.1 % cream 1 applic topical DAILY ferrous sulfate [Feosol] 325 mg (65 mg iron) tablet 325 mg PO DAILY magnesium 200 mg tablet 400 mg PO DAILY Men 50 Plus Multivitamin [id number] mcg tablet 1 tab PO DAILY ondansetron 8 mg tablet,disintegrating 8 mg PO Q8H PRN (Reason: nausea and vomiting) Qty: 30 1RF prednisone 10 mg Tablet 10 mg PO PRN PRN (Reason: RA FLARE) doxycycline hyclate 100 mg tablet 100 mg PO DAILY 30 Days Qty: 90 1RF Primary Care Provider: Li Husain Referrals: Li Husain DO [Primary Care Provider] - Print Language: Jamaican Disposition Disposition: Acute Care Hospital [facility]
[2024-07-16] MEDS: 0.9% Normal Saline (1000mL) 1,000 ML 1000 ML IV (02:18)
[2024-07-16 02:25] LABS: Absolute Neutrophil Count 4.5 X10^3/uL (2.0-7.7); Basophil# 0.05 X10^3/uL; Basophil% 0.6 % (0-1); Eosinophil# 0.17 X10^3/uL; Hematocrit 39.9 % (40-54); Hemoglobin 13.1 g/dL (13.0-16.5); Mean Corp Hgb Conc 32.8 g/dL (32-36); Mean Corpuscular Volume 91.3 fL (80-94); Mean Platelet Vol. 10.9 fl (6.2-12.0); Monocyte# 0.73 X10^3/uL; Monocyte% 8.5 % (0-10); NRBC Flagged by Analyzer 0 % (0-5); Neutrophil # 4.53 X10^3/uL (2.7-7.7); Neutrophil % 52.6 % (47-70); Platelet Count 432 K/mm3 (150-450); RBC Distribution Width CV 16.9 % (11.6-14.6); Red Blood Count 4.37 M/mm3 (4.6-6.2); White Blood Count 8.6 K/mm3 (4.4-11.0)
[2024-07-16 02:42] LABS: CPK Total, Creatine Kinase 47 U/L (24-195); Lipase 96 U/L (13-75); Magnesium 1.3 mg/dL (1.5-2.2)
[2024-07-16 02:48] LABS: ALB/GLOB Ratio 1.1 RATIO (0.9-2.4); AST(SGOT) 27 U/L (<=37); Alanine Aminotransfer ALT/SGPT 16 U/L (<=46); Albumin, Serum 3.8 g/dL (3.4-4.8); Alkaline Phosphatase 58 U/L (40-129); Anion Gap 16 (5-15); BUN 17 mg/dL (4-19); BUN/Creat Ratio 21.6 RATIO (10-20); Calcium,Total 9.8 mg/dL (7.6-11.0); Carbon Dioxide 25.9 mmol/L (21.0-32.0); Chloride 100 mmol/L (98-108); Creatinine, Serum 0.79 mg/dL (0.70-1.20); EST Glomerular Filtration Rate 90 (>60); Estimated Creatinine Clearance 67.46 ml/min (50-250); Globulin 3.5 g/dL (2.2-4.2); Glucose 142 mg/dL (70-99); Potassium 3.6 mmol/L (3.3-5.1); Protein, Total 7.3 g/dL (5.9-8.4); Sodium Level 142 mmol/L (133-145); Total Bilirubin 0.31 mg/dL (0.00-1.30)
--- NOTE | 2024-07-16 02:56 | CT_ITS ---
PROCEDURE: CT CHEST, ABD, PEL W/CONTRAST REASON FOR EXAM: Abdomen pain, abnormal x-ray, elevated lipase, Mets TECHNIQUE: Chest, abdomen and pelvis CT with intravenous contrast. Coronal and sagittal reformatted images CONTRAST: 93 cc Isovue-300 COMPARISON: 01/11/2024 FINDINGS: CT CHEST: Thoracic aorta appears within limits. At least moderate appearing LAD and right coronary calcification. No pericardial or pleural effusion. No large central or hilar pulmonary embolism identified. Frothy material within the mid to lower trachea extending to the right mainstem bronchus suggest secretions, mucous. The central airways are patent. Mild pulmonary emphysema and mild cylindrical bronchiectasis. Mild lower lobe bronchial wall thickening/prominence may represent bronchitis. No consolidation. Mild patchy subpleural dependent opacity at the right base/posterior recess not significantly changed. Multifocal bilateral noncalcified pulmonary nodules all of which appear increased in size from the prior study. For example largest on the right superior segment right lower lobe currently 2.9 cm axial 67, previously 2 cm and largest on the left at the lingula measures 1.1 cm axial 85, previously 0.9 cm consistent with inappropriate progression of disease. Right port. Lower cervical spondylosis/discogenic change. CT ABDOMEN/PELVIS: Liver: Unremarkable. Incidental small hepatic and renal cysts noted. Gallbladder: Unremarkable. Spleen: Unremarkable. Pancreas: Unremarkable. Adrenals: Unremarkable. Kidneys: Unremarkable. Bladder: Unremarkable. Reproductive Organs: Unremarkable. Bowel: Status post partial right hemicolectomy. No bowel dilation or free air.. Appendix: Normal. Lymph nodes: Interval mild increase in size of soft tissue periaortic around the left renal artery level measuring 1.2 cm on the current study axial 33, previously 0.9 cm may represent enlarging lymph node. Mildly more prominent size of retroperitoneal periaortic nodes infrarenal axial 38.. Vasculature: Aortoiliac atherosclerotic change with heavy appearing calcific plaque at the SMA origin. Contrast is seen within the SMA. Possible occlusion of the origin and visualized portions of the proximal left superficial femoral artery Peritoneum / Retroperitoneum: No ascites. No free air. Bones: Mild retrolisthesis L2 on L3 and mild anterolisthesis L4 on L5. Lower lumbar facet degenerative changes. Left hip osteoarthrosis. CT/CT Chest, Abd, Pel w/Contrast IMPRESSION: Mild pulmonary emphysema and mild cylindrical bronchiectasis. Mild lower lobe b ronchial wall thickening/prominence may represent bronchitis. No consolidation. Frothy material within the mid to lower trachea extending to the right mainstem bronchus suggest secretions, mucous. The central airways are patent. Interval enlargement of bilateral multifocal pulmonary noncalcified nodules as above consistent with progression of metastatic disease. No evidence of acute intra-abdominal process. Appearance of interval increase in size of retroperitoneal nodes as above kyra rning for metastatic disease. Appearance of occlusion of the left superficial femoral artery as above. One or more dose reduction techniques were used (e.g., Automated exposure contr ol, adjustment of the mA and/or kV according to patient size, use of iterative reconstruction technique). Reading Location: [id number]
[2024-07-16] MEDS: Magnesium Sulfate 2 GM in Dextrose 5%-Water (100mL Bag) 100 ML IV (03:56)
[2024-07-16 04:02] LABS: Mucous, Urine 0 SEEN /hpf (<or=2+)
[2024-07-16 04:37] LABS: Color, Urine Yellow (Yellow); Glucose, Dipstick Normal (Normal); Ketone-Dipstick 5 mg/dl (Negative); Leukocyte Esterase-Dipstick Negative /ul (Negative); Nitrite-Dipstick Negative (Negative); Occult Blood-Urine 25 /ul (Negative); Protein-Dipstick 15 mg/dl (Negative); Urine Bilirubin Dipstick Negative (Negative); Urine Clarity Clear (Clear); Urine Urobilinogen Normal (Normal)
[2024-07-16 04:53] LABS: Bacteria RARE /hpf (None Seen); Red Blood Cells-Urine 5-10 SEEN /hpf (0-5); Squamous Epithelial Cells - UA 0-5 SEEN /hpf (0-5); White Blood Cells 0-5 SEEN /hpf (0-5)
[2024-07-16] MEDS: Enoxaparin 40 MG/0.4 ML Syringe SC (10:51)
--- NOTE | 2024-07-16 15:45 | HP.PCM.HOS_ITS ---
HPI - General General Date of Admission: 07/16/24 HPI Narrative LONDON KING, is a 79 M who presents to the hospital due to weakness and increasing shortness of breath. He states that over the last 5 weeks he has noticed an increased weakness and intermittent shortness of breath. He says that he used to be able to walk into get his chemo but over the last 5 weeks he has been requiring a wheelchair from the car into the lobby. He is not clear as to what is changed, he denies any recent illnesses or having any sick contacts at home. 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 He is also notes that he has been having difficulty maintaining his magnesium levels and he had to be replaced today in the ER as well. Chest x-ray in the ER was negative for any discrete consolidation, did show metastatic lesions so CT of the chest abdomen pelvis was obtained which showed minor pulmonary disease outside of the metastatic lesions, though did show progression of disease. [facility] Medical History Fatigue Prerenal azotemia Dermatitis Wears hearing aid Wears glasses Cancer Anxiety Alcohol use Migraine headache COPD (chronic obstructive pulmonary disease) Former smoker History of stress test History of colon cancer EXCISION OF LUMP History of high cholesterol History of hypertension Rheumatoid arthritis Home Medications ?Medication ?Instructions ?Recorded ?Last Taken ?Type folic acid 1 mg tablet 2 mg PO DAILY 02/19/1906/26 History methotrexate sodium 15 mg tablet 16 mg PO FR 11/19/21 06/26/24 History prednisone 10 mg tablet 10 mg PO PRN PRN RA FLARE Unknown History arginine 7 gram-glutamine 7 1 ea PO .qod 12/06/22 01/0 06/08 History gram-calcium HMB 1.5 gram oral powder pack (Micheal) food supplemt, lactose-reduced 0.1 240 ml PO BID 12/06 Unknown History gram-1.18 kcal/mL oral liquid (Ensure Complete) vitamin B complex 1 tab PO Q24H 01/05/2307/15 08:00 History triamcinolone acetonide 0.1 % 1 applic topical DAILY 0 06/20/23 Unknown History topical cream ferrous sulfate 325 mg (65 mg 325 mg PO DAILY 07/18/23 07/15/24 08:00 History iron) tablet (Feosol) magnesium 200 mg tablet 400 mg PO DAILY 07/18/23 Unk nown History saozvlfl-ik-cvfsl 300 mcg-K 60 1 tab PO DAILY 07/18/23 Unknown History mcg-lycop 600 mcg-lutein 300 mcg tablet (Men 50 Plus Multivitamin) ondansetron 8 mg disintegrating 8 mg PO Q8H PRN nausea and 08/01/23 07/14/24 Rx tablet vomiting #30 tabs 8 mg doxycycline hyclate 100 mg tablet 100 mg PO DAILY 30 d ays #90 tabs 05/31/24 07/15/24 17:53 Rx Allergy/AdvReac Type Severity Reaction Status Date / Time No Known Allergies Allergy Verified 07/16/24 01:51 Family History Father Myocardial infarction Mother , AT THE AGE OF 100 Breast cancer Surgical History History of cardiac catheterization History of right hemicolectomy History of tonsillectomy History of appendectomy Social History Smoking Status: Former smoker quit date: 05/14/04 pack-years: 30 Tobacco: How many years used: 30 Electronic Cigarette Use: not used second hand exposure: Yes quit status: quit date established alcohol intake: current details: socially substance use type: does not use ROS Constitutional Constitutional: Reports fatigue and weakness; Denies chills, fever(s) or malaise Eyes Eyes: Denies blurry vision ENT HEENT: Denies headache(s) or nasal discharge Cardiovascular Cardiovascular: Reports dyspnea on exertion; Denies chest pain or syncope Respiratory/Chest Respiratory/Chest: Denies cough, shortness of breath at rest or shortness of breath with exertion Gastrointestinal Gastrointestinal: Denies constipation, diarrhea, nausea or vomiting Genitourinary Genitourinary: Denies dysuria Neurologic Neurologic: Denies focal weakness, numbness or tremor(s) Psychiatric Psychiatric: Denies anxiety or depression Vital Signs Vital Signs Vital Signs: 07/16/24 01:51 07/16/24 01:54 07/16/24 01:54 Temperature 97.8 F 97.8 F Temperature Source Oral Oral Pulse Rate 82 79 Pulse Strength Respiratory Rate 22 H 22 H Respiratory Effort Normal Respiratory Depth Respiratory Pattern Tachypnea Blood Pressure 158/83 H 156/83 H Blood Pressure Mean 108 107 Blood Pressure Source Blood Pressure Position Blood Pressure Location Pulse Ox 96 97 Oxygen Delivery Method Room Air Room Air Oxygen Flow Rate (L/min) 07/16/24 02:54 07/16/24 03:00 07/16/24 03:30 Temperature 97.8 F 97.8 F Temperature Source Oral Oral Pulse Rate 73 73 Pulse Strength Respiratory Rate 23 H 23 H Respiratory Effort Respiratory Depth Respiratory Pattern Blood Pressure 150/80 H 150/80 H Blood Pressure Mean 103 103 Blood Pressure Source Blood Pressure Position Blood Pressure Location Pulse Ox 97 97 78 Oxygen Delivery Method Room Air Room Air Room Air Oxygen Flow Rate (L/min) 07/16/24 03:37 07/16/24 04:00 07/16/24 05:00 Temperature 97.8 F Temperature Source Oral Pulse Rate 81 76 Pulse Strength Respiratory Rate 18 16 Respiratory Effort Respiratory Depth Respiratory Pattern Blood Pressure 134/72 H 130/74 H Blood Pressure Mean 92 92 Blood Pressure Source Blood Pressure Position Blood Pressure Location Pulse Ox 94 94 96 Oxygen Delivery Method Nasal Cannula Nasal Cannula Nasal Cannula Oxygen Flow Rate (L/min) 1 1 1 07/16/24 07:11 07/16/24 09:48 07/16/24 10:00 Temperature 98.2 F Temperature Source Pulse Rate 71 Pulse Strength Normal (2+) Respiratory Rate 19 H Respiratory Effort Normal Non-Labored Respiratory Depth Normal Respiratory Pattern Normal Blood Pressure 123/76 H Blood Pressure Mean 91 Blood Pressure Source Blood Pressure Position Blood Pressure Location Pulse Ox 95 Oxygen Delivery Method Room Air Oxygen Flow Rate (L/min) 07/16/24 10:27 07/16/24 15:18 Temperature 97.5 F L Temperature Source Oral Pulse Rate 68 Pulse Strength Respiratory Rate 16 Respiratory Effort Normal Non-Labored Respiratory Depth Normal Respiratory Pattern Normal Blood Pressure 128/71 H Blood Pressure Mean 90 Blood Pressure Source Monitor Blood Pressure Position Semi-Fowlers Blood Pressure Location Left Arm Pulse Ox 93 Oxygen Delivery Method Room Air Nasal Cannula Oxygen Flow Rate (L/min) 2 Weight Weight: 136 lb 3.931 oz Body Mass Index (BMI) 19.0 Physical Exam Narrative General: Alert, Oriented x3, Cooperative, No apparent distress, mild temporal wasting with cachexia HEENT: Atraumatic, PERRLA, EOMI, Normocephalic Oral: Moist Mucosa Neck: Supple, No JVD Lungs: Diminished, Normal air movement, No rhonchi, No wheeze, No rales Cardiovascular: Regular rate, Regular Rhythm, Normal S1, Normal S2, No murmurs Abdomen: Soft, Non Tender, Non-Distended, No Hepato-splenomegaly Extremities: No edema, Capillary Refill Less than 3 Seconds Skin: No rashes, No breakdown Musculoskeletal: No Tenderness to Palpation of Joints or Extremities Neurological: No focal neurological deficits, Motor Exam 5/5 strength throughout, Sensory exam intact to light touch and pain Psych/Mental Status: Normal Affect, Appropriate Results Lab / Micro Data 07/16/24 02:19 07/16/24 02:19 Labs: Laboratory Results - last 24 hr 07/16/24 02:19: WBC 8.6, RBC 4.37 L, Hgb 13.1, Hct 39.9 L, MCV 91.3, MCH 30.0, MCHC 32.8, RDW Std Deviation 56.0 H, RDW Coeff of Nate 16.9 H, Plt Count 432, MPV 10.9, Immature Gran % (Auto) 0.300, Neut % (Auto) 52.6, Lymph % (Auto) 36.0, [place] % (Auto) 8.5, Eos % (Auto) 2.0, Baso % (Auto) 0.6, Absolute Neuts (auto) 4.5, Absolute Lymphs (auto) 3.10, Nucleated RBC % 0, Sodium 142, Potassium 3.6, Chloride 100, Carbon Dioxide 25.9, Anion Gap 16 H, BUN 17, Creatinine 0.79, Estim Creat Clear Calc 67.46, Est GFR (MDRD) Non-Af 90, BUN/Creatinine Ratio 21.6 H, Glucose 142 H, Calcium 9.8, Magnesium 1.3 L, Total Bilirubin 0.31, AST 27, ALT 16, Alkaline Phosphatase 58, Total Creatine Kinase 47, Total Protein 7.3, Albumin 3.8, Globulin 3.5, Albumin/Globulin Ratio 1.1, Lipase 96 H 07/16/24 03:42: Urine Color Yellow, Urine Clarity Clear, Urine pH 7.0, Ur Specific [place] 1.010, Urine Protein 15 H, Urine Glucose (UA) Normal, Urine Ketones 5 H, Urine Occult Blood 25 H, Urine Nitrite Negative, Urine Bilirubin Negative, Urine Urobilinogen Normal, Ur Leukocyte Esterase Negative, Urine RBC 5-10 SEEN, Urine WBC 0-5 SEEN, Ur Squamous Epith Cells 0-5 SEEN, Urine Bacteria RARE, Urine Mucus 0 SEEN Micro: Microbiology 07/16/24 02:38 Mucosa - Nose SARS-CoV-2, Influenza & RSV (PCR) - Final Rhythm Strip Rhythm Strip: Sinus Rhythm Rate: 69 Ectopy: PVC(s) Imaging Radiology Impression Chest X-Ray 07/16/24 02:07 IMPRESSION: Ill-defined streaky opacity at the medial right base may represent developing inflammatory, infectious process. No focal consolidation. Bilateral lower lung ill-defined nodular opacities consistent with history of metastatic disease. Right port again noted. No pleural effusion.. Reading Location: [facility] Chest/Abdomen/Pelvis CT 07/16/24 02:56 IMPRESSION: Mild pulmonary emphysema and mild cylindrical bronchiectasis. Mild lower lobe bronchial wall thickening/prominence may represent bronchitis. No consolidation. Frothy material within the mid to lower trachea extending to the right mainstem bronchus suggest secretions, mucous. The central airways are patent. Interval enlargement of bilateral multifocal pulmonary noncalcified nodules as above consistent with progression of metastatic disease. No evidence of acute intra-abdominal process. Appearance of interval increase in size of retroperitoneal nodes as above concerning for metastatic disease. Appearance of occlusion of the left superficial femoral artery as above. One or more dose reduction techniques were used (e.g., Automated exposure control, adjustment of the mA and/or kV according to patient size, use of iterative reconstruction technique). Reading Location: [facility] Assessment & Plan Assessment/Plan (1) Hypoxia: (2) Fatigue: PLAN: Plan 1. Acute hypoxic respiratory insufficiency with debility and generalized weakness in the setting of metastatic colon cancer and chemotherapy ? Had a 22-minute discussion on advance care planning including hospice versus palliative care as well as a code discussion ups ? He is very borderline with his oxygen requirements, upon admission he was on room air for a bit and then fell asleep and needed 2 L nasal cannula ? Will plan for an ambulatory pulse ox tomorrow again ? He is on prophylactic antibiotics with doxycycline which we can continue here but he does not take any breathing treatments or inhalers as he does not carry a diagnosis of COPD or asthma ? Will replace his magnesium and check phosphorus today and recheck electrolytes tomorrow morning 2. Iron deficiency anemia ? Hemoglobin is stable at 13.1 ? Can resume his iron replacement DVT: Lovenox 55 minutes was spent on direct patient care, including documentation as well as chart review and collaboration with colleagues Charges/Coding Multi Select Codes Visit Charges Visit Charges: 34233 Init Hosp L2 Hospitalists' Procedures Procedures: 28135 Advncd Care Plan 30 Min
[2024-07-16 17:56] LABS: Phosphorus 3.5 mg/dL (2.7-4.5)
--- NOTE | 2024-07-17 01:15 | NURSING ---
this nurse took over care for patient at 0119
[2024-07-17 03:30] VITALS: BP 134/65; PULSE 73; RESP 16; TEMP 36.6; O2SAT 93
[2024-07-17 08:06] VITALS: BP 124/71; PULSE 79; RESP 18; TEMP 36.5; O2SAT 95
--- NOTE | 2024-07-17 09:30 | PN.HOSP_ITS ---
Reason for Visit Reason for Visit: Diagnoses Hypoxemia (07/16/24) Other fatigue (07/16/24) Subjective Subjective Patient is a 79-year-old gentleman with history of metastatic colon cancer on chemo as outpatient who presented with progressive generalized weakness admitted to regular nursing floor for further management Objective Data Objective Data Vital Signs: Vital Signs Temp Pulse Resp BP Pulse Ox O2 Del Method O2 Flow Rate 97.7 F L 79 18 124/71 H 95 Nasal Cannula 2 07/17/24 08:06 07/17/24 08:06 07/17/24 08:06 07/17/24 08:06 07/17/24 08:06 07/17/24 08:06 07/17/24 03:30 Oxygen Flow Rate (L/min) 2 Oxygen Delivery Method Nasal Cannula Weight: 61.8 kg Body Mass Index (BMI) 19.0 Intake & Output: Intake and Output for Last 24 Hours 07/15/24 07/16/24 07/17/24 23:59 23:59 23:59 Intake Total 1104 / 1304 200 / 200 Balance 1104 / 1304 200 / 200 Lab / Micro Data 07/17/24 09:57 07/17/24 09:57 Labs: Laboratory Results - last 24 hr 07/16/24 02:19: Phosphorus 3.5 Micro: Microbiology 07/16/24 02:38 Mucosa - Nose SARS-CoV-2, Influenza & RSV (PCR) - Final Rhythm Strip Rhythm Strip: Sinus Rhythm Rate: 69 Ectopy: PVC(s) Physical Exam Narrative GENERAL: cooperative HEENT: Atraumatic; normocephalic EYES; Anicteric, Normal Conjunctiva NECK; supple, normal thyroid, RESPIRATORY: Diminished to auscultation CARDIOVASCULAR: Regular S1 S2, GI: soft, normoactive bowel sounds, : No Renal angle tenderness; EXTREMITIES: No edema, no clubbing, MUSCULOSKELETAL: no muscle wasting NEURO: Awake; no lateralizing signs. SKIN: No Rash PSYCH; Flat affect Assessment & Plan Assessment/Plan (1) Hypoxia: (2) Fatigue: PLAN: Plan Patient is a 79-year-old gentleman with history of metastatic colon cancer on chemo as outpatient who presented with progressive generalized weakness admitted to regular nursing floor for further management 1. Physical deconditioning secondary to patient metastatic colon cancer as well as dehydration ? Requested for PT OT eval and protective services social worker to assist with discharge planning 2. Metastatic colon cancer ? Patient underwent right hemicolectomy on 03/21/2019. Had a recurrence diagnosed on 09/15/2021 and has since remained on chemo 3. Acute renal insufficiency ? Patient placed on supplemental oxygen titrated to keep saturation greater than 90 4. Severe hypomagnesemia ? Contributing to patient's symptoms patient did receive magnesium supplementation repeat labs ordered for subsequent eval 5. Hypophosphatemia ? Corrected for protocol repeat labs ordered in a.m. for follow-up 6. DVT prophylaxis ? Subcu Lovenox Time spent in the patient's overall evaluation,decision-making process, review of diagnostic data, adjustment of management, discussion with other providers, nursing nursing and ancillary staff involved in patient's care documentation, 40 Minutes Charges/Coding Visit Charges Inpatient E&M: 25227 [facility] Hosp L2
[2024-07-17] MEDS: Doxycycline 100 MG CAPSULE PO (09:41)
[2024-07-17] MEDS: Enoxaparin 40 MG/0.4 ML Syringe SC (09:41)
[2024-07-17 10:14] LABS: Absolute Lymphocyte Count 2.42 X10^3/uL (0.83-4.51); Absolute Neutrophil Count 4.1 X10^3/uL (2.0-7.7); Basophil# 0.05 X10^3/uL; Basophil% 0.7 % (0-1); Eosinophil# 0.31 X10^3/uL; Eosinophils% 4.1 % (0-5); Hematocrit 35.4 % (40-54); Hemoglobin 11.6 g/dL (13.0-16.5); Lymphocyte # 2.42 X10^3/ul (0.83-4.51); Lymphocyte % 31.7 % (19-41); Mean Corp Hgb Conc 32.8 g/dL (32-36); Mean Corpuscular Hgb 30.4 pg (27.0-32.0); Mean Corpuscular Volume 92.7 fL (80-94); Mean Platelet Vol. 10.8 fl (6.2-12.0); Monocyte# 0.75 X10^3/uL; Monocyte% 9.8 % (0-10); NRBC Flagged by Analyzer 0 % (0-5); Neutrophil # 4.08 X10^3/uL (2.7-7.7); Neutrophil % 53.4 % (47-70); Platelet Count 338 K/mm3 (150-450); RBC Distribution Width SD 57.7 fl (35.1-43.9); Red Blood Count 3.82 M/mm3 (4.6-6.2); White Blood Count 7.6 K/mm3 (4.4-11.0)
[2024-07-17] MEDS: Magnesium Chloride 64 MG Delay Rel.Tablet 128 MG PO ×2 (10:31→20:10)
--- NOTE | 2024-07-17 11:24 | CASEMGMT ---
Met with patient to complete FONTENOT form. FONTENOT form explained to patient who voiced understanding and signed form. Original form placed in pt?s chart and copy provided to patient. Neyda Deshpande, Discharge Planning Asst
[2024-07-17 11:38] LABS: ALB/GLOB Ratio 1.1 RATIO (0.9-2.4); AST(SGOT) 28 U/L (<=37); Alanine Aminotransfer ALT/SGPT 15 U/L (<=46); Albumin, Serum 3.2 g/dL (3.4-4.8); Alkaline Phosphatase 44 U/L (40-129); Anion Gap 13 (5-15); BUN 11 mg/dL (4-19); BUN/Creat Ratio 14.2 RATIO (10-20); Calcium,Total 8.6 mg/dL (7.6-11.0); Carbon Dioxide 23.4 mmol/L (21.0-32.0); Chloride 105 mmol/L (98-108); Creatinine, Serum 0.79 mg/dL (0.70-1.20); EST Glomerular Filtration Rate 90 (>60); Estimated Creatinine Clearance 65.45 ml/min (50-250); Glucose 108 mg/dL (70-99); Magnesium 1.3 mg/dL (1.5-2.2); Phosphorus 2.2 mg/dL (2.7-4.5); Potassium 4.1 mmol/L (3.3-5.1); Protein, Total 6.2 g/dL (5.9-8.4); Sodium Level 141 mmol/L (133-145); Total Bilirubin 0.21 mg/dL (0.00-1.30)
[2024-07-17] MEDS: Ferrous Sulfate 325 MG Tablet PO (11:56)
--- NOTE | 2024-07-17 12:58 | CASEMGMT ---
Addendum entered by Lillian Samaniego 07/17/24 13:22: Pt does not qualify for home oxygen. Updated hospitalist. Addendum entered by Lillian Samaniego 07/17/24 13:17: Referral emailed to palliative care at this time. Original Note: DEBBI SANTORO into pt room, pt sitting up in chair in no distress with oxygen on. Pt lives with , indep in ADLs, does not use AD. Pt receiving chemo treatments. Pt states is setting up palliative care for him. Pt called and this is through [facility]. Pt is aware that this RN MAUDE could assist with that. Pt screened with [facility] Palliative care screening tool, pt met criteria. No therapy recommended per PT eval. Pt denies need for any home health services, pt would like them. They are aware that if pt changes his mind once home, he may contact his PCP to get this set up. Discussed home oxygen with pt should he qualify upon dc. Provided pt with a local in network DME provider list verbally, pt chose [employer]. Reviewed homegoing oxygen instructions, pt verbalized understanding. Pt states his nephew brought a pox to the home yesterday. Updated physician that pt does not have oxygen at home and requested order from physician for palliative care, also updated on therapy per his request in rounds this am.
[2024-07-17 13:20] VITALS: O2SAT 89; O2SAT 92
[2024-07-17 13:42] VITALS: BP 130/58; PULSE 80; RESP 18; TEMP 36.3; O2SAT 95
[2024-07-17] MEDS: Magnesium Sulfate 4gm/100mL 4 GM/100 ML IV.SOLN. IV (14:03)
[2024-07-17] MEDS: 0.9% Saline Lock 10 ML Syringe IV (14:05)
[2024-07-17] MEDS: Potassium Phosphate 40 MM in 0.9% Normal Saline (500mL Bag) 500 ML 62.5 MM IV (14:54)
[2024-07-17] MEDS: Ensure Plus High Protein 120 ML LIQUID PO (17:38)
[2024-07-17 20:05] VITALS: BP 159/62; PULSE 70; RESP 18; TEMP 36.6; O2SAT 96
[2024-07-17] MEDS: Na Biphos/Potassium Phosphate PACKET 1 PACKET PO (20:09)
[2024-07-18 03:00] VITALS: BP 134/71; PULSE 79; RESP 18; TEMP 36.8; O2SAT 95
[2024-07-18 06:29] LABS: Absolute Lymphocyte Count 3.38 X10^3/uL (0.83-4.51); Basophil# 0.05 X10^3/uL; Basophil% 0.5 % (0-1); Eosinophil# 0.25 X10^3/uL; Eosinophils% 2.6 % (0-5); Hematocrit 35.6 % (40-54); Hemoglobin 11.5 g/dL (13.0-16.5); Lymphocyte # 3.38 X10^3/ul (0.83-4.51); Lymphocyte % 34.7 % (19-41); Mean Corp Hgb Conc 32.3 g/dL (32-36); Mean Corpuscular Hgb 29.6 pg (27.0-32.0); Mean Corpuscular Volume 91.8 fL (80-94); Mean Platelet Vol. 10.8 fl (6.2-12.0); Monocyte# 1.02 X10^3/uL; Monocyte% 10.5 % (0-10); NRBC Flagged by Analyzer 0 % (0-5); Neutrophil # 4.99 X10^3/uL (2.7-7.7); Neutrophil % 51.3 % (47-70); Platelet Count 352 K/mm3 (150-450); RBC Distribution Width SD 56.7 fl (35.1-43.9); Red Blood Count 3.88 M/mm3 (4.6-6.2); White Blood Count 9.7 K/mm3 (4.4-11.0)
[2024-07-18 06:58] LABS: Anion Gap 10 (5-15); BUN 8 mg/dL (4-19); BUN/Creat Ratio 10.5 RATIO (10-20); Calcium,Total 8.6 mg/dL (7.6-11.0); Carbon Dioxide 24.4 mmol/L (21.0-32.0); Chloride 108 mmol/L (98-108); Creatinine, Serum 0.76 mg/dL (0.70-1.20); EST Glomerular Filtration Rate 92 (>60); Estimated Creatinine Clearance 65.45 ml/min (50-250); Glucose 114 mg/dL (70-99); Magnesium 1.7 mg/dL (1.5-2.2); Phosphorus 3.2 mg/dL (2.7-4.5); Potassium 4.4 mmol/L (3.3-5.1); Sodium Level 142 mmol/L (133-145)
[2024-07-18 08:21] VITALS: O2SAT 90; O2SAT 93
[2024-07-18 08:29] VITALS: BP 144/72; PULSE 78; RESP 16; TEMP 36.9; O2SAT 96
[2024-07-18 08:30] VITALS: O2SAT 93
[2024-07-18 08:45] VITALS: O2SAT 96
--- NOTE | 2024-07-18 08:51 | DS.PCM_ITS ---
Providers Date of Admission: 07/16/24 Primary Care Physician: Dr. Li Husain DO Reason For Visit: SOB Diagnosis Discharge Diagnosis (1) Hypoxia: Status: Acute Code(s): R09.02 - Hypoxemia (2) Fatigue: Status: Acute Code(s): R53.83 - Other fatigue Plan Patient is a 79-year-old gentleman with history of metastatic colon cancer on chemo as outpatient who presented with progressive generalized weakness admitted to regular nursing floor for further management 1. Physical deconditioning secondary to patient metastatic colon cancer as well as dehydration ? Requested for PT OT eval and child welfare social worker to assist with discharge planning 2. Metastatic colon cancer ? Patient underwent right hemicolectomy on 03/21/2019. Had a recurrence diagnosed on 09/15/2021 and has since remained on chemo 3. Acute renal insufficiency ? Patient placed on supplemental oxygen titrated to keep saturation greater than 90 4. Severe hypomagnesemia ? Contributing to patient's symptoms patient did receive magnesium supplementation repeat labs ordered for subsequent eval 5. Hypophosphatemia ? Corrected for protocol repeat labs ordered in a.m. for follow-up 6. DVT prophylaxis ? Subcu Lovenox Time spent in the patient's overall evaluation,decision-making process, review of diagnostic data, adjustment of management, discussion with other providers, nursing nursing and ancillary staff involved in patient's care documentation, 40 Minutes Medications at Discharge Home Medications folic acid 1 mg tablet 2 mg PO DAILY 02/19/19 methotrexate sodium 15 mg tablet 16 mg PO FR 11/19/21 prednisone 10 mg tablet 10 mg PO PRN PRN RA FLARE 11/19/21 arginine 7 gram-glutamine 7 gram-calcium HMB 1.5 gram oral powder pack (Micheal) 1 ea PO .qod 12/06/22 food supplemt, lactose-reduced 0.1 gram-1.18 kcal/mL oral liquid (Ensure Complete) 240 ml PO BID 12/06/22 vitamin B complex 1 tab PO Q24H 01/05/23 triamcinolone acetonide 0.1 % topical cream 1 applic topical DAILY 06/20/23 ferrous sulfate 325 mg (65 mg iron) tablet (Feosol) 325 mg PO DAILY 07/18/23 magnesium 200 mg tablet 400 mg PO DAILY 07/18/23 [id number] 300 mcg-K 60 mcg-lycop 600 mcg-lutein 300 mcg tablet (Men 50 Plus Multivitamin) 1 tab PO DAILY 07/18/23 ondansetron 8 mg disintegrating tablet 8 mg PO Q8H PRN nausea and vomiting #30 tabs 08/01/23 doxycycline hyclate 100 mg tablet 100 mg PO DAILY 30 days #90 tabs 05/31/24 Physical Exam Narrative GENERAL: cooperative HEENT: Atraumatic; normocephalic EYES; Anicteric, Normal Conjunctiva NECK; supple, normal thyroid, RESPIRATORY: Diminished to auscultation CARDIOVASCULAR: Regular S1 S2, GI: soft, normoactive bowel sounds, : No Renal angle tenderness; EXTREMITIES: No edema, no clubbing, MUSCULOSKELETAL: no muscle wasting NEURO: Awake; no lateralizing signs. SKIN: No Rash PSYCH; Flat affect Medical Records Data Medical Nutrition Assessment Dietitian: Malnutrition Criteria Met Start: 07/17/24 12:11 Freq: Status: Active Protocol: Document 07/17/24 12:11 LO (Rec: 07/17/24 12:11 [id number]) Nutrition Malnutrition Evidence of Yes Malnutrition Exists Malnutrition (severe Acute Illness/Injury ): Evidenced By Suboptimal Energy Intake (Severe),Weight Loss (Severe), Physical Changes (Moderate) Clinical Problem Acute Disease or Injury Related Malnutrition Etiology severe related to metastatic colon cancer Signs/Symptoms as evidenced by 2.6lbs (8.4%) unintentional weight loss in 1 month, PO intakes <50% of estimated nutrition needs ~1 month, and moderate fat/muscle loss to temporal, buccal, clavicle, and interosseous regions Status Active Problem Recommendation Dietitian Continue Regular diet to optimize oral intakes. Recommendations/ Will order 120mL Ensure Plus High Protein chocolate Changes flavor TID with medpass to provide supplemental energy and promote weight maintenance. Weight / BMI Weight Weight: 61.8 kg Body Mass Index (BMI) 19.0 ABG / Lab / Microbiology Data 07/18/24 06:07 07/18/24 06:07 Laboratory: Laboratory Results - last 24 hr 07/17/24 09:57: WBC 7.6, RBC 3.82 L, Hgb 11.6 L, Hct 35.4 L, MCV 92.7, MCH 30.4, MCHC 32.8, RDW Std Deviation 57.7 H, RDW Coeff of Nate 17.0 H, Plt Count 338, MPV 10.8, Immature Gran % (Auto) 0.300, Neut % (Auto) 53.4, Lymph % (Auto) 31.7, [place] % (Auto) 9.8, Eos % (Auto) 4.1, Baso % (Auto) 0.7, Absolute Neuts (auto) 4.1, Absolute Lymphs (auto) 2.42, Nucleated RBC % 0, Sodium 141, Potassium 4.1, Chloride 105, Carbon Dioxide 23.4, Anion Gap 13, BUN 11, Creatinine 0.79, Estim Creat Clear Calc 65.45, Est GFR (MDRD) Non-Af 90, BUN/Creatinine Ratio 14.2, G lucose 108 H, Calcium 8.6, Phosphorus 2.2 L, Magnesium 1.3 L, Total Bilirubin 0.21, AST 28, ALT 15, Alkaline Phosphatase 44, Total Protein 6.2, Albumin 3.2 L, Globulin 3.0, Albumin/Globulin Ratio 1.1 07/18/24 06:07: WBC 9.7, RBC 3.88 L, Hgb 11.5 L, Hct 35.6 L, MCV 91.8, MCH 29.6, MCHC 32.3, RDW Std Deviation 56.7 H, RDW Coeff of Nate 17.0 H, Plt Count 352, MPV 10.8, Immature Gran % (Auto) 0.400, Neut % (Auto) 51.3, Lymph % (Auto) 34.7, M amanda % (Auto) 10.5 H, Eos % (Auto) 2.6, Baso % (Auto) 0.5, Absolute Neuts (auto) 5.0, Absolute Lymphs (auto) 3.38, Nucleated RBC % 0, Sodium 142, Potassium 4.4, Chloride 108, Carbon Dioxide 24.4, Anion Gap 10, BUN 8, Creatinine 0.76, Estim Creat Clear Calc 65.45, Est GFR (MDRD) Non-Af 92, BUN/Creatinine Ratio 10.5, G lucose 114 H, Calcium 8.6, Phosphorus 3.2, Magnesium 1.7 Microbiology: Microbiology 07/16/24 02:38 Mucosa - Nose SARS-CoV-2, Influenza & RSV (PCR) - Final D/C Instructions Discharge Diet: No restrictions Discharge Activity: Return to Normal Activity Call your doctor if you observe: Fever of 101 or Higher, Shortness of breath, Fainting spells and Chest pain DC O2, CPAP, BIPAP Needs Home O2 Discharge instructions: Yes Type of respiratory needs?: Oxygen Oxygen frequency: With Sleeping Oxygen liters per minute when sleepin DC home with Oxygen: Yes Home O2 MD Review: I have reviewed the oxygen testing, and the patient qualifies for home oxygen equipment and portability. The patient is mobile in the home and the community. Meaningful Use Info Meaningful Use Meaningful Use Diagnoses (Choose all that apply): None applicable Ischemic Stroke Statin Dosing Therapy Reference: STATIN DOSE THERAPY REFERENCE: * Patients > 75 years receive moderate or high dose statin therapy. * Patients 75 years or YOUNGER should receive HIGH intensity statin dose unless contraindicated. You will be required to document reason for non-treatment if statin daily dose does not meet guidelines. HIGH DOSE STATIN THERAPY DAILY Atorvastatin > than or = to 40 mg Rosuvastatin > than or = to 20 mg Amlodipine + Atorvastatin > than or = to 2.5/40 mg Ezetimibe + Simvastatin 10/80 mg Simvastatin 80mg Discharge Plan Admission Admit Date/Time: 07/16/24 07:24 Attending Provider: Dyllan Hunt Primary Care Provider: Li Husain Consulting Providers: Manjinder Ward; Kam Sotelo Discharge Orders/Prescriptions Prescriptions: Continued folic acid 1 mg tablet 2 mg PO DAILY Patient Comments: hasn't taken it since stopped taking methotrexate methotrexate sodium 15 mg tablet 16 mg PO FR Ensure Complete 0.1 gram-1.18 kcal/mL liquid 240 ml PO BID Micheal 7-7-1.5 gram powder in packet 1 ea PO .qod vitamin B complex Tablet 1 tab PO Q24H triamcinolone acetonide 0.1 % cream 1 applic topical DAILY ferrous sulfate [Feosol] 325 mg (65 mg iron) tablet 325 mg PO DAILY magnesium 200 mg tablet 400 mg PO DAILY Men 50 Plus Multivitamin [id number] mcg tablet 1 tab PO DAILY ondansetron 8 mg tablet,disintegrating 8 mg PO Q8H PRN (Reason: nausea and vomiting) Qty: 30 1RF prednisone 10 mg Tablet 10 mg PO PRN PRN (Reason: RA FLARE) doxycycline hyclate 100 mg tablet 100 mg PO DAILY 30 Days Qty: 90 1RF Referrals / Follow Up: Li Husain DO [Primary Care Provider] - In 1 Week Disposition Disposition (needs filled in before D/C Order can be placed): Home, Self Care Charges/Coding Visit Charges Inpatient E&M: 40522 Disch Hosp >30min
[2024-07-18 08:54] VITALS: BP 128/72; PULSE 66; RESP 18; TEMP 37; O2SAT 96
[2024-07-18] MEDS: Na Biphos/Potassium Phosphate PACKET 1 PACKET PO (09:00)
[2024-07-18] MEDS: Magnesium Chloride 64 MG Delay Rel.Tablet 128 MG PO (09:00)
[2024-07-18] MEDS: Doxycycline 100 MG CAPSULE PO (09:00)
[2024-07-18] MEDS: Enoxaparin 40 MG/0.4 ML Syringe SC (09:00)
--- NOTE | 2024-07-18 09:54 | CASEMGMT ---
Addendum entered by Lillian Samaniego 07/18/24 10:17: 1010- DEBBI SANTORO into pt room, pt aware of oxygen orders and that [employer] will be up to speak to him. He is also aware that the palliative care referral has been made. Pt denies any further homegoing needs at this time. Original Note: Received order for oxygen at . Referral sent to [facility] [place] at this time. Pt to ok today.
[2024-07-18] MEDS: Ferrous Sulfate 325 MG Tablet PO (12:36)
[2024-07-18] MEDS: Ensure Plus High Protein 120 ML LIQUID PO (12:36)
--- NOTE | 2024-07-18 14:41 | PHA.DC.MR.R ---
Pharmacy [facility] Med Reconciliation Pharmacy Service has performed discharge medication reconciliation for this patient. The patient's discharge medication list was reviewed for discrepancies and discrepancies were resolved. Medications at Discharge Home Medications folic acid 1 mg tablet 2 mg PO DAILY 02/19/19 methotrexate sodium 15 mg tablet 16 mg PO FR 11/19/21 prednisone 10 mg tablet 10 mg PO PRN PRN RA FLARE 11/19/21 arginine 7 gram-glutamine 7 gram-calcium HMB 1.5 gram oral powder pack (Michela) 1 ea PO .qod 12/06/22 food supplemt, lactose-reduced 0.1 gram-1.18 kcal/mL oral liquid (Ensure Complete) 240 ml PO BID 12/06/22 vitamin B complex 1 tab PO Q24H 01/05/23 triamcinolone acetonide 0.1 % topical cream 1 applic topical DAILY 06/20/23 ferrous sulfate 325 mg (65 mg iron) tablet (Feosol) 325 mg PO DAILY 07/18/23 magnesium 200 mg tablet 400 mg PO DAILY 07/18/23 [id number]-[id number] 300 mcg-K 60 mcg-lycop 600 mcg-lutein 300 mcg tablet (Men 50 Plus Multivitamin) 1 tab PO DAILY 07/18/23 ondansetron 8 mg disintegrating tablet 8 mg PO Q8H PRN nausea and vomiting #30 tabs 08/01/23 doxycycline hyclate 100 mg tablet 100 mg PO DAILY 30 days #90 tabs 05/31/24
== END 2024-07-18 13:15 | disposition home or self-care (01) ==
LOC: ED 07:26 → MS2 09:22
PROVIDERS: Admitting Provider Family Medicine; Emergency Provider Emergency Medicine; PCP Internal Medicine; Visit Provider Internal Medicine
DX: C18.9 Malignant neoplasm of colon, unspecified (principal); C78.00 Secondary malignant neoplasm of unspecified lung; M06.9 Rheumatoid arthritis, unspecified; J44.9 Chronic obstructive pulmonary disease, unspecified; R53.83 Other fatigue; R53.81 Other malaise; E78.00 Pure hypercholesterolemia, unspecified; Z87.891 Personal history of nicotine dependence; E83.42 Hypomagnesemia; R10.30 Lower abdominal pain, unspecified; R09.02 Hypoxemia; R31.9 Hematuria, unspecified; I10 Essential (primary) hypertension; E86.0 Dehydration; G62.9 Polyneuropathy, unspecified; Z79.899 Other long term (current) drug therapy; D50.9 Iron deficiency anemia, unspecified; E83.39 Other disorders of phosphorus metabolism; N28.9 Disorder of kidney and ureter, unspecified; E43 Unspecified severe protein-calorie malnutrition; Z68.1 Body mass index [BMI] 19.9 or less, adult
CPT/HCPCS: 36415; 71046; 71260; 74177; 80048; 80053; 81001; 82550; 83690; 83735; 84100; 85025; 87631; 93005; 96361; 96365; 96366; 96367; 96372; 97161; 97802; 99221; 99285; Q9967; A4216; G0378

== ENCOUNTER → 2024-08-21 | Outpatient (CLI) | payer MEDICARE, OTHER, SELFPAY ==
--- NOTE | 2024-08-21 12:31 | MRI_ITS ---
PROCEDURE: BRAIN W/WO CONTRAST 08/21/2024 REASON FOR EXAM: ATAXIA TECHNIQUE: Brain MRI without and with intravenous contrast with additional dedicated imaging of the IACs. CONTRAST: 14 cc IV Clariscan was administered. COMPARISON: None FINDINGS: TECHNIQUE: Multiplanar, multi-sequence MRI of brain was performed without and with IV contrast. FINDINGS: BRAIN/PARENCHYMA: No evidence of acute infarction or acute intracranial hemorrhage. There are subcortical and periventricular white matter FLAIR hyperintensities, likely related to chronic microvascular ischemic disease. No abnormal post-contrast enhancement. EXTRA-AXIAL SPACES: No abnormal extra-axial fluid collections. Patent basal cisterns and foramen magnum. MIDLINE SHIFT: None. VENTRICLES: No hydrocephalus. SCALP SOFT TISSUES & CALVARIUM: No significant abnormality. VISUALIZED SINUSES & MASTOIDS: No air-fluid levels in the paranasal sinuses. The mastoid air cells are clear. ARTERIAL FLOW VOIDS: Preserved major arterial flow voids indicating gross patency. 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 MRI/Brain W/WO Contrast IMPRESSION: 1. No acute intracranial abnormality. 2. No suspicious intracranial mass, abnormal parenchymal or leptomeningeal enha ncement. 3. Chronic microvascular ischemia and involutional changes. 4. 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 Recommend further staci luation with CTA or MRA of the head. Reading Location: [facility]
== END | disposition home or self-care (01) ==
LOC: MRI 12:29
PROVIDERS: PCP Internal Medicine; Referring Provider Internal Medicine Medical Oncology; Visit Provider Internal Medicine Medical Oncology
DX: R27.0 Ataxia, unspecified (principal); C18.9 Malignant neoplasm of colon, unspecified
CPT/HCPCS: 70553; A9575

== ENCOUNTER → 2024-11-11 | Outpatient (CLI) | payer MEDICARE, OTHER, SELFPAY ==
--- NOTE | 2024-11-11 08:20 | CT_ITS ---
PROCEDURE: CT CHEST, ABD, PEL W/CONTRAST 11/11/2024 REASON FOR EXAM: COLON CA-IV ONLY TECHNIQUE: Chest, abdomen and pelvis CT with intravenous contrast. Coronal and Sagittal reconstruction series were provided. One or more dose reduction techniques were used (e.g., Automated exposure control, adjustment of the mA and/or kV according to patient size, use of iterative reconstruction technique. PATIENT PREPARATION: Per protocol ORAL CONTRAST TYPE: None. CONTRAST: Isovue-300 VOLUME: 96mL RADIATION DOSE SUMMARY: CTDlvol: 23.28 mGy DLP: 906.23 mGycm COMPARISON: CT chest abdomen and pelvis with IV contrast, 07/16/2024. FINDINGS: CT CHEST: Lower neck: The thyroid gland is normal. There is no supraclavicular lymphadenopathy. Lymph nodes: There is no hilar or mediastinal lymphadenopathy. Heart and Vasculature: The heart size is normal. There is no pericardial effusion.There is calcific vascular disease of the thoracic aorta and coronary arteries. Lungs and Airways: There are numerous pulmonary nodules the largest is in the posterior superior segment of the lower lobe of the right lung measuring 3.4 x 1.9 cm. There are no pleural effusions. Chest wall: There is a chemotherapy port in the right upper chest wall with the tip in the superior vena cava via the right internal jugular vein. There is bilateral gynecomastia. There is wedge compression of the superior endplate of T9, not present previously. CT ABDOMEN/PELVIS: Liver: There is a 5 mm in diameter cyst in the posterior segment of the right hepatic lobe. Gallbladder: Possible gallstones. Spleen: Normal. Pancreas: Normal. Adrenals: Normal. Kidneys: There are cortical cysts in both kidneys. Bladder: Normal unenhanced appearance. Reproductive Organs: The prostate gland measures 4.5 cm in transverse dimension and contains coarse calcifications. The seminal vesicles are unremarkable. There is no free fluid in the pelvis. There is no inguinal lymphadenopathy. Bowel: Status post ascending colectomy with a enterocolic anastomosis. There is stool throughout the remaining colon. Appendix: Surgically absent. Lymph nodes: There is no mesenteric, retroperitoneal or pelvic lymphadenopathy. Vasculature: There is calcific vascular disease of the abdominal aorta. The origins of the SMA, both renal arteries and both common iliac arteries are heavily calcified. There is ectasia of the infrarenal abdominal aorta without aneurysm. Abdominal wall: There is an umbilical hernia containing a loop of bowel measuring 2.7 cm in diameter. There is a right inguinal hernia, containing a loop of bowel, measuring 4.8 cm in diameter. There is a left inguinal hernia, containing normal fat, measuring 2.4 cm in diameter. Bones: There is multilevel degenerative disc disease of the lower thoracic and lumbar spine most severe at the L5-S1 level. There is multilevel facet arthropathy with degenerative grade 1 retrolisthesis of L1 on L2, L2 on L3, L3 on L4 and L5 on S1 and degenerative anterolisthesis of L4 on L5. CT/CT Chest, Abd, Pel w/Contrast IMPRESSION: 1. Interval increase in size and number of pulmonary nodules consistent with w orsening metastatic disease. 2. Umbilical and bilateral inguinal hernias as described. All of the hernias have increased in size since the prior exam. 3. Other findings as noted. Reading Location: [id number]
[2024-11-11] MEDS: 0.9% Saline Lock 10 ML Syringe IV (08:28)
== END | disposition home or self-care (01) ==
LOC: CT 07:36
PROVIDERS: PCP Internal Medicine; Referring Provider Internal Medicine Medical Oncology; Visit Provider Internal Medicine Medical Oncology
DX: C18.3 Malignant neoplasm of hepatic flexure (principal); C78.00 Secondary malignant neoplasm of unspecified lung; C79.51 Secondary malignant neoplasm of bone
CPT/HCPCS: 71260; 74177; Q9967; A4216

== ENCOUNTER → 2024-11-27 | Outpatient (CLI) | payer MEDICARE, OTHER, SELFPAY ==
--- NOTE | 2024-11-27 07:50 | BI_ITS ---
EXAM: DIAG MAMM W/CAD, BILAT; BREAST LIMITED UNILATERAL; LT BRST UNILAT DIANA ADD ON 11/27/2024 CLINICAL HISTORY: 79-year-old male presents with left breast lump. Personal history of colon cancer with metastatic disease. TECHNIQUE: DIAG MAMM W/CAD, BILAT; BREAST LIMITED UNILATERAL; LT BRST UNILAT DIANA ADD ON. COMPARISON: No priors, baseline examination. FINDINGS: MAMMOGRAM: TISSUE DENSITY: The breasts are almost entirely fatty. Bilateral Breast Mammographic Findings: Left breast: There is a triangle skin marker indicating the area of palpable concern in the retroareolar left breast. Underlying the skin marker is moderate gynecomastia in the retroareolar left breast. Otherwise, there are no suspicious findings in the left breast. Right breast: There is mild retroareolar gynecomastia in the right breast. Otherwise, there are no suspicious findings in the right breast. ULTRASOUND: Ultrasound performed of the patient's area of palpable concern in the retroareolar left breast demonstrates moderate gynecomastia. The right retroareolar region was done for comparison demonstrating mild gynecomastia. BI/Lt Brst Unilat Diana Add On IMPRESSION: The patient's area of palpable concern in the left breast correlates to benign moderate gynecomastia in the retroareolar region. Also, there is mild right gynecomastia. Clinical management is recommended to determine the etiology. There is no evidence of malignancy in either breast. OVERALL FINAL ASSESSMENT BI-RADS 2: BENIGN RECOMMENDATION: OTHER A letter with findings and recommendations will be mailed to the patient. Reading Location: [id number]
--- NOTE | 2024-11-27 08:00 | BI_ITS ---
EXAM: DIAG MAMM W/CAD, BILAT; BREAST LIMITED UNILATERAL; LT BRST UNILAT DIANA ADD ON 11/27/2024 CLINICAL HISTORY: 79-year-old male presents with left breast lump. Personal history of colon cancer with metastatic disease. TECHNIQUE: DIAG MAMM W/CAD, BILAT; BREAST LIMITED UNILATERAL; LT BRST UNILAT DIANA ADD ON. COMPARISON: No priors, baseline examination. FINDINGS: MAMMOGRAM: TISSUE DENSITY: The breasts are almost entirely fatty. Bilateral Breast Mammographic Findings: Left breast: There is a triangle skin marker indicating the area of palpable concern in the retroareolar left breast. Underlying the skin marker is moderate gynecomastia in the retroareolar left breast. Otherwise, there are no suspicious findings in the left breast. Right breast: There is mild retroareolar gynecomastia in the right breast. Otherwise, there are no suspicious findings in the right breast. ULTRASOUND: Ultrasound performed of the patient's area of palpable concern in the retroareolar left breast demonstrates moderate gynecomastia. The right retroareolar region was done for comparison demonstrating mild gynecomastia. BI/DIAG MAMM W/CAD, BILAT IMPRESSION: The patient's area of palpable concern in the left breast correlates to benign moderate gynecomastia in the retroareolar region. Also, there is mild right gynecomastia. Clinical management is recommended to determine the etiology. There is no evidence of malignancy in either breast. OVERALL FINAL ASSESSMENT BI-RADS 2: BENIGN RECOMMENDATION: OTHER A letter with findings and recommendations will be mailed to the patient. Reading Location: [id number]
== END | disposition home or self-care (01) ==
PROVIDERS: PCP Internal Medicine; Referring Provider Internal Medicine Medical Oncology; Visit Provider Internal Medicine Medical Oncology
DX: N63.42 Unspecified lump in left breast, subareolar (principal)
CPT/HCPCS: 76642; 77061; 77066; G0279

== ENCOUNTER 2024-12-13 09:28 | Day surgery (SDC) | payer MEDICARE, OTHER, SELFPAY ==
--- NOTE | 2024-12-10 09:55 | EKG12_ITS ---
Test Reason : PREOP Blood Pressure : */* mmHG Vent. Rate : 75 BPM Atrial Rate : 75 BPM P-R Int : 148 ms QRS Dur : 96 ms QT Int : 384 ms P-R-T Axes : 59 -44 33 degrees QTcB Int : 428 ms Normal sinus rhythm with sinus arrhythmia Left axis deviation Abnormal ECG Confirmed by YAA MOORE, RAIZA ([id number]), dictionary editor PRITESH WRIGHT ([id number]) on 12/11/2024 8:39:30 AM Referred By: Arun Guaman Confirmed By: RAIZA MON MD
--- NOTE | 2024-12-11 15:54 | PAT.ANESEVAL ---
Pre-Assessment Diagnosis/Proposed Procedure Planned Operative Procedure(s): (R) Hernia, Open Inguinal w/ Mesh Anesthesia History Anesthesia History - deposit clerk: Anesthesia History - deposit clerk Hx Hospitalization Yes: [facility] WEAK FROM CHEMO 3- 12/06/24 14:17 25 Any Problems With Anesthesia No 12/06/24 14:17 Cholinesterase deficiency No 12/06/24 14:17 You/Your Family Experience No 12/06/24 14:17 fever (hyperthermia) with Relationship Recent Exposure to Contagious No 04/13/22 10:42 Disease Does patient have nerve No 12/06/24 14:17 stimulator Patient instructed to have device shut off --Does patient have Pacemaker or ICD? When Was Last Pacemaker Check QUESTION #4 FULL TEXT: You/Your Family Experience fever (hyperthermia) with Anesthesia Last Oral Intake Last Oral intake: Last Oral Intake NPO since Meds taken in AM with sips of water? Meds patient instructed to take am of surgery PONV PONV - deposit clerk: PONV - deposit clerk Female No 12/06/24 14:17 HX of Motion Sickness No 12/06/24 14:17 HX of N/V After Surgery No 12/06/24 14:17 Non-Smoker Yes 12/06/24 14:17 Duration of Surgery greater Yes 12/06/24 14:17 than 60 minutes Number of Risk Factors 2 12/06/24 14:17 PONV Score Moderate Risk 12/06/24 14:17 Height & Weight Height & Weight: Anesthesia: Height & Weight Height 5 ft 11 in 12/03/24 14:15 Respiratory Assessment Respiratory Assessment - deposit clerk: Respiratory Tract Infection Hx - deposit clerk Hx Respiratory Tract Infection No 12/06/24 14:17 STOP Sleep Apnea STOP Sleep Apnea - deposit clerk: STOP Sleep Apnea - deposit clerk Hx Hypertension No 12/06/24 14:17 Hx Sleep Apnea No 12/06/24 14:17 CPAP BIPAP Do you snore loudly (louder No 12/06/24 14:17 than talking or can be heard Do you often feel tired/ No 12/06/24 14:17 fatigued/ sleepy during daytime? Has anyone observed you stop No 12/06/24 14:17 breathing during sleep? STOP Results Negative 12/06/24 14:17 QUESTION #5 FULL TEXT : Do you snore loudly (louder than talking or can be heard through closed doors)? 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 Specify any problems Hx of Preganancy in last 3 No 12/06/24 14:17 Months Nurse Filling Out Transfusion JZOLLINGE 12/06/24 14:17 & Questions: Date: 12/06/24 12/06/24 14:17 Time: 14:22 12/06/24 14:17 Patient unable to answer at this time (ie. confused, unrespo /Reproduction History /Reproductive History - deposit clerk: /Reproductive Hx- deposit clerk Hx Now No 12/06/24 14:17 Gestational Age (in weeks): EDC: Hx Hx Para Hx Section SAB No 12/06/24 14:17 PFSH Medical History Fatigue Prerenal azotemia Dermatitis Wears hearing aid Wears glasses Cancer Anxiety Alcohol use Migraine headache COPD (chronic obstructive pulmonary disease) Former smoker History of stress test History of colon cancer EXCISION OF LUMP History of high cholesterol History of hypertension Rheumatoid arthritis Home Medications ?Medication ?Instructions ?Recorded ?Last Taken ?Type food supplemt, lactose-reduced 0.1 240 ml PO .QD 12/06/22 Unknown History gram-1.18 kcal/mL oral liquid (Ensure Complete) cholecalciferol (vitamin D3) 25 25 mcg PO QDAY 12/03/24 Unknown History mcg (1,000 unit) capsule diphenhydramine 25 1 tab PO QHS 12/03/24 Unknown History mg-acetaminophen 500 mg tablet (Tylenol PM Extra Strength) multivitamin 1 tab PO DAILY 12/06/24 Unknown History Allergy/AdvReac Type Severity Reaction Status Date / Time No Known Allergies Allergy Verified 12/06/24 14:11 Family History Father Myocardial infarction Mother , AT THE AGE OF 100 Breast cancer Surgical History History of cardiac catheterization History of right hemicolectomy History of tonsillectomy History of appendectomy Social History Smoking Status: Former smoker quit date: 05/14/04 pack-years: 30 Tobacco: How many years used: 30 Electronic Cigarette Use: not used second hand exposure: Yes quit status: quit date established alcohol intake: current details: socially substance use type: does not use Audit: Pertinent Findings Pertinent Findings EKG Perinent findings: 12 Lead EKG 12/10/24 0958 MR#: [id number] Acct: [id number] Name: FERNANDOLONDON Rep #: [id number] : 1945 79 From: Jovan Mon MD Attending Dr: Dr. Arun Guaman MD Status: PRE [facility] [place]: Audie Moseley MD Date: 12/10/24 [place] [facility] [place] Sex: M C Admitted: Test Reason : PREOP Blood Pressure : */* mmHG Vent. Rate : 75 BPM Atrial Rate : 75 BPM P-R Int : 148 ms QRS Dur : 96 ms QT Int : 384 ms P-R-T Axes : 59 -44 33 degrees QTcB Int : 428 ms Normal sinus rhythm with sinus arrhythmia Left axis deviation Abnormal ECG Confirmed by JOVAN MON MD ([id number]), online content editor PRITESH WRIGHT ([id number]) on 12/11/2024 8:39:30 AM Referred By: Arun Guaman Confirmed By: JOVAN MON MD 12/11/24 0839 Echo (EF%) pertinent findings: Echo Complete 02/20/19 1110 MR#: [id number] Acct: [id number] Name: LONDON KING Rep #: [id number] : 1945 73 From: Julian Lewis MD Attending Dr: Li Husain DO Status: REG CLI Ordering Dr: Li Husain DO Date: 02/20/19 Location: [facility] Sex: M C Admitted: Reason For Study: RBBB Procedure This was a 2D Doppler, Color Flow transthoracic echocardiogram. Exam performed in department. Left Ventricle Normal size and thickness. The estimated ejection fraction is 65 %. Stage 1 diastolic dysfunction. No regional wall motion abnormalities noted. Right Ventricle Normal size and thickness. Normal systolic function. Atria Normal left atrium. Normal right atrium. Normal atrial septum. Mitral Valve The mitral valve is structurally normal. No prolapse or stenosis seen. Trivial mitral valve insufficiency. Tricuspid Valve Normal tricuspid valve. Trivial tricuspid valve insufficiency. Right ventricular systolic pressure estimated to be 23 mmHg. Aortic Valve Normal aortic valve. Trisinus/trileaflet aortic valve. Pulmonic Valve Normal pulmonic valve. Great Vessels Normal aortic root. Normal arch. Normal inferior vena cava. Inferior vena cava collapse with sniff. Pericardium/Pleural No pericardial effusion. MMode/2D Measurements & Calculations LVIDd: 4.7 cm IVSd: 0.87 cm Ao root diam: 3.8 cm LVIDs: 3.0 cm LVPWd: 1.0 cm RVDd: 3.5 cm FS: 35.5 % LAV(MOD-bp): 47.0 ml LA A4 area: 16.0 cm2 LA dimension(2D): 3.0 cm LAV(MOD-bp) Indexed: 23.1 ml/m2 LAV(MOD-sp2): 53.1 ml LAV(MOD-sp4): 39.7 ml RA A4 area: 15.9 cm2 Time Measurements MV dec time: 0.26 sec Doppler Measurements & Calculations MV E max arpan: 64.8 cm/sec Lat Peak E' Arpan: 10.0 cm/sec Med Peak E' Arpan: 9.1 cm/sec MV A max arpan: 76.0 cm/sec E/E' lat: 6.5 E/E' med: 7.1 MV E/A: 0.85 Ao V2 max: 127.0 cm/sec LV V1 max: 102.8 cm/sec PA V2 max: 122.3 cm/sec Ao max P.5 mmHg LV V1 max P.2 mmHg TR max arpan: 212.9 cm/sec TR max P.1 mmHg Interpretation Summary The estimated ejection fraction is 65 %. Stage 1 diastolic dysfunction. Trivial mitral valve insufficiency. Trivial tricuspid valve insufficiency. Right ventricular systolic pressure estimated to be 23 mmHg. Compared to echo report dated , no appreciable changes noted. Recommendation Anesthesia Recommendation Anesthesia recommendation: OPTIMIZED for anesthesia
[2024-12-13] VITALS (13 sets, daily range): BP systolic 128–158; BP diastolic 33–87; PULSE 65–75; RESP 16–17; TEMP 36.1–37.3; O2SAT 91–98; BMI 21.7
[2024-12-13] MEDS: Lactated Ringers 1,000 ML 15 ML IV ×2 (10:25→13:35)
--- NOTE | 2024-12-13 10:37 | PCM.HP.STD ---
HPI - General General Date of Admission: 12/13/24 Date of Service: 01/15/25 Chief Complaint: Right inguinal hernia HPI Narrative LONDON KING, is a 79 M who presents for elective repair of a right inguinal hernia. We discussed the details of the planned procedure and he wished to proceed. I have recommended that this be done open as he has a fairly sizable periumbilical hernia that is really not causing him any problems. He is also currently on break from chemotherapy. We would like to get him back on track with chemotherapy as soon as possible. [facility] Medical History Fatigue Prerenal azotemia Dermatitis Wears hearing aid Wears glasses Cancer Anxiety Alcohol use Migraine headache COPD (chronic obstructive pulmonary disease) Former smoker History of stress test History of colon cancer EXCISION OF LUMP History of high cholesterol History of hypertension Rheumatoid arthritis Home Medications ?Medication ?Instructions ?Recorded ?Last Taken ?Type food supplemt, lactose-reduced 0.1 240 ml PO .QD 12/06/22 12/12/24 History gram-1.18 kcal/mL oral liquid (Ensure Complete) cholecalciferol (vitamin D3) 25 25 mcg PO QDAY 12/03/24 12/12/24 History mcg (1,000 unit) capsule diphenhydramine 25 1 tab PO QHS 12/03/24 12/12/24 History mg-acetaminophen 500 mg tablet (Tylenol PM Extra Strength) multivitamin 1 tab PO DAILY 12/06/24 12/12/24 History Allergy/AdvReac Type Severity Reaction Status Date / Time No Known Allergies Allergy Verified 12/13/24 10:22 Family History Father Myocardial infarction Mother , AT THE AGE OF 100 Breast cancer Surgical History History of cardiac catheterization History of right hemicolectomy History of tonsillectomy History of appendectomy Social History Smoking Status: Former smoker quit date: 05/14/04 pack-years: 30 Tobacco: How many years used: 30 Electronic Cigarette Use: not used second hand exposure: Yes quit status: quit date established alcohol intake: current details: socially substance use type: does not use Vital Signs Vital Signs Vital Signs: 12/13/24 10:23 12/13/24 10:23 Temperature 99.1 F Temperature Source Temporal Pulse Rate 75 Respiratory Rate 16 Respiratory Pattern Normal Blood Pressure 128/77 H Blood Pressure Mean 94 Blood Pressure Source Monitor Blood Pressure Position Semi-Fowlers Blood Pressure Location Left Arm Pulse Ox 97 Oxygen Delivery Method Room Air Weight Weight: 155 lb 13.869 oz Body Mass Index (BMI) 21.7 Physical Exam Const alert, oriented x3 and no apparent distress Assessment & Plan Assessment/Plan (1) Inguinal hernia: PLAN: Plan The patient is a 79-year-old male who presents for an open repair of a right inguinal hernia. We discussed the details of the planned procedure including risk benefits and alternatives. He wishes to proceed. This will begin momentarily.
--- NOTE | 2024-12-13 10:52 | PCM.PRE.AN2 ---
ASA Classification* ASA Classification ASA Classification: 3 Assessment & Plan Anesthesia* Anesthesia Assessment Anesthesia Assessment: Discussed sedation and/or anesthesia options, risks, benefits, and alternatives with patient/parents/legal guardian/POA. Questions invited. The patient/parents/legal guardian/POA seems to understand and agrees to proceed with anesthesia plan. Reviewed the physical assessment, medical history, allergy history and patient home medications list prior to surgery/procedure/anesthetic and documented any changes. Performed airway and anesthesia risk assessments. Anesthesia Type Anesthesia Type: General History Source History Obtained from:: Patient and Chart Anesthesia Focused Assessment* Temperature: 99.1 F Pulse Rate: 75 Blood Pressure: 128/77 Respiratory Rate: 16 Pulse Ox: 97 Oxygen Delivery Method: Room Air Airway Assessment Mouth opens: >3 cm Mallampati Score: III Teeth Condition: Caps/Crowns (Multiple caps and crowns. They are all tight.) Neck Range of motion (ROM): Limited ROM (Slight Decrease) Labs Anesthesia Preop lab: CBC WBC 10.9 K/mm3 (4.4-11.0) 11/11/24 07:30 11/11/24 RBC 4.25 M/mm3 (4.6-6.2) L 11/11/24 07:30 11/11/24 Hgb 12.7 g/dL (13.0-16.5) L 11/11/24 07:30 11/11/24 Hct 38.7 % (40-54) L 11/11/24 07:30 11/11/24 Plt Count 175 K/mm3 (150-450) 11/11/24 07:30 11/11/24 CHEMISTRY Potassium 3.9 mmol/L (3.3-5.1) 11/11/24 07:30 11/11/24 Sodium 141 mmol/L (133-145) 11/11/24 07:30 11/11/24 Magnesium 1.9 mg/dL (1.5-2.2) 08/26/24 07:35 08/26/24 Phosphorus 4.1 mg/dL (2.7-4.5) 08/26/24 07:35 08/26/24 BUN 17 mg/dL (4-19) 11/11/24 07:30 11/11/24 Creatinine 0.82 mg/dL (0.70-1.20) 11/11/24 07:30 11/11/24 Glucose 81 mg/dL (70-99) 11/11/24 07:30 11/11/24 TSH 2.84 uIU/mL (0.358-3.74) 11/29/22 07:30 11/29/22 COAG PT 13.9 SECONDS (11.7-14.9) 11/11/22 07:49 11/11/22 Pre-Assessment Diagnosis/Proposed Procedure Planned Operative Procedure(s): (R) Hernia, Open Inguinal w/ Mesh Anesthesia History Anesthesia History - pattern scratcher: Anesthesia History - pattern scratcher Hx Hospitalization Yes: [facility] WEAK FROM CHEMO 3- 12/06/24 14:17 25 Any Problems With Anesthesia No 12/06/24 14:17 Cholinesterase deficiency No 12/06/24 14:17 You/Your Family Experience No 12/06/24 14:17 fever (hyperthermia) with Relationship Recent Exposure to Contagious No 12/13/24 10:23 Disease Does patient have nerve No 12/06/24 14:17 stimulator Patient instructed to have device shut off --Does patient have Pacemaker No 12/13/24 10:23 or ICD? When Was Last Pacemaker Check QUESTION #4 FULL TEXT: You/Your Family Experience fever (hyperthermia) with Anesthesia Last Oral Intake Last Oral intake: Last Oral Intake NPO since 06:30 12/13/24 10:23 Meds taken in AM with sips of No 12/13/24 10:23 water? Meds patient instructed to take am of surgery Any additional information?: Yes NPO since: 06:30 (Patient had black coffee at 6:30 AM.) Meds taken in AM with sips of water?: No PONV PONV - pattern scratcher: PONV - pattern scratcher Female No 12/06/24 14:17 HX of Motion Sickness No 12/06/24 14:17 HX of N/V After Surgery No 12/06/24 14:17 Non-Smoker Yes 12/06/24 14:17 Duration of Surgery greater Yes 12/06/24 14:17 than 60 minutes Number of Risk Factors 2 12/06/24 14:17 PONV Score Moderate Risk 12/06/24 14:17 Height & Weight Height & Weight: Anesthesia: Height & Weight Height 5 ft 11 in 12/13/24 10:23 Weight: 70.7 kg 12/13/24 10:23 Body Mass Index (BMI) 21.7 12/13/24 10:23 Respiratory Assessment Respiratory Assessment - pattern scratcher: Respiratory Tract Infection Hx - pattern scratcher Hx Respiratory Tract Infection No 12/06/24 14:17 STOP Sleep Apnea STOP Sleep Apnea - pattern scratcher: STOP Sleep Apnea - pattern scratcher Hx Hypertension No 12/06/24 14:17 Hx Sleep Apnea No 12/06/24 14:17 CPAP BIPAP Do you snore loudly (louder No 12/06/24 14:17 than talking or can be heard Do you often feel tired/ No 12/06/24 14:17 fatigued/ sleepy during daytime? Has anyone observed you stop No 12/06/24 14:17 breathing during sleep? STOP Results Negative 12/06/24 14:17 QUESTION #5 FULL TEXT : Do you snore loudly (louder than talking or can be heard through closed doors)? 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 Specify any problems Hx of Preganancy in last 3 No 12/06/24 14:17 Months Nurse Filling Out Transfusion JZOLLINGE 12/06/24 14:17 & Questions: Date: 12/06/24 12/06/24 14:17 Time: 14:22 12/06/24 14:17 Patient unable to answer at this time (ie. confused, unrespo /Reproduction History /Reproductive History - pattern scratcher: /Reproductive Hx- pattern scratcher Hx Now No 12/06/24 14:17 Gestational Age (in weeks): EDC: Hx Hx Para Hx Section SAB No 12/06/24 14:17 Active Medications Active Medications: Current Medications Generic Name Dose Route Start Last Admin Trade Name Freq PRN Reason Stop Dose Admin Cefazolin Sodium 2 gm/ Sodium 110 mls @ 200 mls/hr 12/13/24 11:00 Chloride IV 12/13/24 11:32 INTRAOP ONE Lactated Ringer's 1,000 mls @ 15 mls/hr 12/13/24 10:00 12/13/24 10:25 IV 15 mls/hr .Q48H MARTITA Administration PFSH Medical History Fatigue Prerenal azotemia Dermatitis Wears hearing aid Wears glasses Cancer Anxiety Alcohol use Migraine headache COPD (chronic obstructive pulmonary disease) Former smoker History of stress test History of colon cancer EXCISION OF LUMP History of high cholesterol Rheumatoid arthritis Home Medications ?Medication ?Instructions ?Recorded ?Last Taken ?Type food supplemt, lactose-reduced 0.1 240 ml PO .QD 12/06/22 12/12/24 History gram-1.18 kcal/mL oral liquid (Ensure Complete) cholecalciferol (vitamin D3) 25 25 mcg PO QDAY 12/03/24 12/12/24 History mcg (1,000 unit) capsule diphenhydramine 25 1 tab PO QHS 12/03/24 12/12/24 History mg-acetaminophen 500 mg tablet (Tylenol PM Extra Strength) multivitamin 1 tab PO DAILY 12/06/24 12/12/24 History Allergy/AdvReac Type Severity Reaction Status Date / Time No Known Allergies Allergy Verified 12/13/24 10:22 Family History Father Myocardial infarction Mother , AT THE AGE OF 100 Breast cancer Surgical History History of cardiac catheterization History of right hemicolectomy History of tonsillectomy History of appendectomy Social History Smoking Status: Former smoker quit date: 05/14/04 pack-years: 30 Tobacco: How many years used: 30 Electronic Cigarette Use: not used second hand exposure: Yes quit status: quit date established alcohol intake: current details: socially substance use type: does not use Review of Systems (Anesthesia) ROS Narrative System reviewed and no additional complaints, except as documented.
--- NOTE | 2024-12-13 11:00 | HERN_PTH ---
PATIENT: LONDON KING LOC: [facility] [place] U#:[id number] AGE/SX: 79/M ROOM: RE12/13/[address]: Dr. Arun Guaman MD : 1945 BED: DIS: 12/13/2024 SPEC #: [id number] RECD: 12/13/24 14:10 STATUS: IVAN REMichelle #: [id number] BRITT: 12/13/24 11:[address]: Arun Guaman DEPT: SURGICAL PATHOLOGY RECD BY: Greg Conner ENTERED: 12/13/24 15:01 SP TYPE: Hernia OTHR DR: Dr. Li Husain, Tissues: A - HERNIA Procedures: Surgery Specimen Level II HEADER OPERATION: Hernia, open inguinal with mesh PRE-OP DIAGNOSIS: Right inguinal hernia TISSUE SUBMITTED: A- Hernia sac MICROSCOPIC DIAGNOSIS A. Right inguinal area,hernia sac, excision: - Fibroadipose tissue with fibrosis, mild chronic inflammation, and reactive mesothelium, consistent with hernia sac. MICROSCOPIC DESCRIPTION Slides are reviewed. GROSS DESCRIPTION A. Received in formalin labeled with the patient's name and date of . Designated as hernia sac is an 8.0 x 3.3 x 0.4 cm pink-red, focally cauterized and focally fibrotic semimembranous portion of tissue with minimal attached adipose tissue. Condominium Property Manager sections are submitted in 1 cassette. MI 12/13/2024 CPT:83362
[2024-12-13] MEDS: Bupiv/Epi 0.25% 30 ML Vial (12:30)
--- NOTE | 2024-12-13 12:48 | PCM.POST.ANE ---
Anesthesia: Postop Eval I Current Vital Signs Temperature: 97 F Pulse Rate: 67 Blood Pressure: 131/87 Respiratory Rate: 16 Pulse Ox: 98 Assessment Airway patent: Yes Spontaneous unlabored respirations: Yes nausea: No Vomiting: No Anesthesia Complication: No Fluid Hydration Crystalloid volume administer (ml): 900 Total IV fluid infused: 900 Progress Note Anesthesia document: Postop Eval 1 completed: Yes
--- NOTE | 2024-12-13 12:51 | DCINST_ITS ---
Discharge Instructions
--- NOTE | 2024-12-13 12:51 | EX.PCM.DISCH ---
Discharge Instructions Diet Discharge Diet: Light diet - advance as tolerated Activity Discharge Activity: Return to Normal Activity and May Shower May shower in (days): 1 Ice area for (Minutes): 30 Lifting Restrictions: No lifting pushing or pulling more than 20 pounds for 6 weeks Dressing / Incision Call your doctor if your incision/area has: Continuous Slow Oozing, Sudden Increased Bleeding, Increased Pain/ Swelling, Increased Redness, Foul Smelling Discharge and Swelling at the incision site Call your doctor if you observe: Fever of 101 or Higher Cleanse incision/area with: Soap & Water Follow Up Care Please Follow Up With: Arun Guaman MD When: 2 weeks. Please call office to schedule appointment Test Results: Test results from this visit will be discussed in further detail at your follow-up appointment, if applicable. Discharge Plan Admission Primary Reason for Your Visit: Open right inguinal hernia repair with mesh Attending Provider: Arun Guaman Primary Care Provider: Li Husain Instructions Print Language: Georgian Discharge Orders/Prescriptions Prescriptions: New oxycodone 5 mg capsule 5 mg PO Q8H PRN (Reason: pain) 4 Days Qty: 10 0RF Continued Ensure Complete 0.1 gram-1.18 kcal/mL liquid 240 ml PO .QD diphenhydramine-acetaminophen [Tylenol PM Extra Strength] 25-500 mg tablet 1 tab PO QHS cholecalciferol (vitamin D3) 25 mcg (1,000 unit) capsule 25 mcg PO QDAY multivitamin Tablet 1 tab PO DAILY Referrals / Follow Up: Li Husain DO [Primary Care Provider] - Disposition Disposition (needs filled in before D/C Order can be placed): Home, Self Care
--- NOTE | 2024-12-13 12:56 | PCM.OPRPT ---
Problems Associated Problem List Diagnoses (1) Inguinal hernia: Procedures Digestive 40xxx-49xxx: 74315 Prp i/sandra init reduc >5 yr Operative Report (Standard) Operative Information Date of Procedure: 12/13/24 Pre-Operative Diagnosis: Right inguinal hernia Post-Operative Diagnosis: right inguinal hernia Surgery/Procedure Performed: Open right inguinal hernia repair with mesh manager public: Yes Radiologist: Erica Hurst Tasks completed by human resources assistant manager: Closing and Retracting Additional catalog library assistant?: No Type of Anesthesia: General and Local RN Documented Start/Stop Times: Operation Date: 12/13/24 11:00 Case Time Into Pre-Op 12/13/24 09:48 Anesthesia Start 12/13/24 11:12 Into Room 12/13/24 11:12 Out of Pre-Op 12/13/24 11:12 Procedure Start 12/13/24 11:31 Procedure End 12/13/24 12:38 Anesthesia End 12/13/24 12:42 Out of Room 12/13/24 12:42 Into Recovery 12/13/24 12:45 Procedure Start Time: 11:31 Procedure Stop Time: 12:38 Select all DRAINS/GRAFTS/IMPLANTS that apply: Prosthetic device Prosthetic device details: Bard mesh plug and patch size large Special Medications: IV antibiotics given preop Estimated Blood Loss: Minimal Specimen collected: Yes Description of specimen(s) removed: Hernia sac Description of surgery: The patient is a 79-year-old male who is seen to the office recently with a right inguinal hernia. This was causing him increasing pain and discomfort which was becoming increasingly symptomatic problem which was preventing him from doing his usual activities. He wanted to have this repaired. He is currently receiving chemotherapy and was on a break in chemotherapy which allowed for possible hernia repair. We discussed the details of the planned procedure as well as risks benefits and alternatives. He wished to proceed. I recommended an open repair as this was not felt to be completely reducible in office as well as the fact that he had a ventral incisional hernia that was asymptomatic however this would have made a minimally invasive approach more challenging and I felt that keeping his surgery simple would be best for getting him back to chemotherapy in a more timely manner. Patient was brought to the operative room today following informed consent. Preoperative antibiotics were given and a timeout was performed. He was placed supine on the operative table with arms outstretched on arm boards. The groin region was then prepped and draped in the usual sterile manner. A marking pen was then used to indicate the site of the planned incision. Local anesthetic was infiltrated into the subcutaneous tissue. A #15 blade was then used to make the skin incision. Bovie electrocautery was then used dissect down through subcutaneous tissue down to the level of the external abdominal oblique fascia. At this point the hernia was readily visible. The external abdominal oblique fascia was then incised using a #15 blade. This was extended superiorly and inferiorly along the direction of the fibers using Metzenbaum scissors. Curved hemostats were placed on the cut ends of the fascia. A plane was developed between the fascia and the underlying tissue. The cord structures were then encircled first with my finger and then later a Marquette drain was placed to provide retraction. The hernia sac was dissected off of the cord structures. Patient also had a small cord lipoma that was excised. Cord structures were clearly spared. The sac was actually quite elongated. This was clamped and transected. Next a large mesh plug was inserted and then secured to the surrounding tissues. A mesh patch was then affixed to the pubic tubercle and around the periphery of the mesh as well. The external abdominal oblique fascia was then closed using 2-0 Vicryl in a running manner. 2-0 Vicryl was also used to reapproximate the subcutaneous layer. 3-0 Vicryl was then used to close the subdermal layer and 4-0 Vicryl was run the skin. A total of 20 cc of local anesthetic was infiltrated. Hemostasis was excellent. Skin glue was applied as dressing. He was awakened from anesthesia and taken to recovery in good condition. Surgical Findings: Large indirect hernia Complications Complications: No Admit VTE Documentation VTE Present on Admission: No VTE Mechan Device Prophylaxis: SCD's VTE Pharm Prophylaxis ordered?: No Reason prophylaxis not ordered: Treatment Not Indicated
--- NOTE | 2024-12-13 15:39 | POSTOPAN2_ITS ---
Anesthesia Postop Eval I Sum Postop Eval Completion status Anesthesia document: Postop Eval 1 completed: Yes Anesthesia Postop Eval I Summary Anesthesia Postop Eval I Summary: Anesthesia Postop Eval I: Assessment Summary Airway patent Yes 12/13/24 12:48 BUS TROLLEY AND TAXI INSTRUCTOR.TNES Spontaneous unlabored Yes 12/13/24 12:48 BUS TROLLEY AND TAXI INSTRUCTOR.TNES respirations Mental status nausea No 12/13/24 12:48 BUS TROLLEY AND TAXI INSTRUCTOR.TNES Vomiting No 12/13/24 12:48 BUS TROLLEY AND TAXI INSTRUCTOR.TNES Anesthesia Postop Eval I: Fluid Summary Crystalloid volume administer 900 12/13/24 12:48 BUS TROLLEY AND TAXI INSTRUCTOR.TNES (ml) Colloids volume administered ( ml) Blood Product volume administered (ml) Total IV fluid infused 900 12/13/24 12:48 BUS TROLLEY AND TAXI INSTRUCTOR.TNES Anesthesia Postop Eval I: Summary Notes Anesthesia Complication No 12/13/24 12:48 BUS TROLLEY AND TAXI INSTRUCTOR.TNES Anesthesia Complication Comment: Post-operative progress note Anesthesia: Postop Eval II Evaluation Mental status: Awake Pain Level: 2 nausea: No Vomiting: No
--- NOTE | 2024-12-13 15:39 | PCM.POSTANE2 ---
Anesthesia Postop Eval I Sum Postop Eval Completion status Anesthesia document: Postop Eval 1 completed: Yes Anesthesia Postop Eval I Summary Anesthesia Postop Eval I Summary: Anesthesia Postop Eval I: Assessment Summary Airway patent Yes 12/13/24 12:48 BSS SOLUTION ARCHITECT.TNES Spontaneous unlabored Yes 12/13/24 12:48 BSS SOLUTION ARCHITECT.TNES respirations Mental status nausea No 12/13/24 12:48 BSS SOLUTION ARCHITECT.TNES Vomiting No 12/13/24 12:48 BSS SOLUTION ARCHITECT.TNES Anesthesia Postop Eval I: Fluid Summary Crystalloid volume administer 900 12/13/24 12:48 BSS SOLUTION ARCHITECT.TNES (ml) Colloids volume administered ( ml) Blood Product volume administered (ml) Total IV fluid infused 900 12/13/24 12:48 BSS SOLUTION ARCHITECT.TNES Anesthesia Postop Eval I: Summary Notes Anesthesia Complication No 12/13/24 12:48 BSS SOLUTION ARCHITECT.TNES Anesthesia Complication Comment: Post-operative progress note Anesthesia: Postop Eval II Evaluation Mental status: Awake Pain Level: 2 nausea: No Vomiting: No
== END 2024-12-13 17:09 | disposition home or self-care (01) ==
LOC: SDC 09:34 → AC 10:19
PROVIDERS: PCP Internal Medicine; Referring Provider Surgery; Visit Provider Surgery
PROC: (CPT 49505; principal; 2024-12-13 10:45)
DX: K40.90 Unilateral inguinal hernia, without obstruction or gangrene, not specified as recurrent (principal); M06.9 Rheumatoid arthritis, unspecified; C18.9 Malignant neoplasm of colon, unspecified; J44.9 Chronic obstructive pulmonary disease, unspecified; D17.6 Benign lipomatous neoplasm of spermatic cord; Z90.49 Acquired absence of other specified parts of digestive tract; Z87.891 Personal history of nicotine dependence; Z79.899 Other long term (current) drug therapy
CPT/HCPCS: 49505; 00830; 88302; 93005; A4216; C1781; J2405

== ENCOUNTER → 2025-03-10 | Outpatient (CLI) | payer MEDICARE, OTHER, SELFPAY | END | disposition home or self-care (01) | LOC: CT 12:38 | PROVIDERS: PCP Internal Medicine; Referring Provider Internal Medicine Medical Oncology; Visit Provider Internal Medicine Medical Oncology | DX: C18.3 Malignant neoplasm of hepatic flexure (principal) | CPT/HCPCS: 71260; 74177; Q9967 ==

== ENCOUNTER 2025-04-30 11:26 | Emergency (ER) | payer MEDICARE, OTHER, SELFPAY ==
[2025-04-30 11:26] VITALS: BP 114/73; PULSE 86; RESP 20; TEMP 36.3; O2SAT 93
[2025-04-30 13:26] VITALS: BP 112/70; PULSE 82; RESP 18; O2SAT 96
--- NOTE | 2025-04-30 13:37 | EKG12_ITS ---
Test Reason : Blood Pressure : */* mmHG Vent. Rate : 71 BPM Atrial Rate : 71 BPM P-R Int : 158 ms QRS Dur : 102 ms QT Int : 398 ms P-R-T Axes : 60 -57 44 degrees QTcB Int : 432 ms Normal sinus rhythm Possible Left atrial enlargement Left anterior fascicular block Abnormal ECG Confirmed by Lico Ramirez ([id number]), film editor supervisor PRITESH WRIGHT ([id number]) on 05/02/2025 10:25:57 AM Referred By: Confirmed By: Lico Ramirez
[2025-04-30] MEDS: 0.9% Normal Saline (1000mL) 1,000 ML 999 ML IV (14:32)
[2025-04-30 14:34] VITALS: BMI 21.7
[2025-04-30 14:45] LABS: Hematocrit 40.9 % (40-54); Hemoglobin 13.9 g/dL (13.0-16.5); Immature Granulocytes Count 0.040 X10^3/uL (0.0-0.0); Mean Corp Hgb Conc 34.0 g/dL (32-36); Mean Corpuscular Volume 88.5 fL (80-94); Mean Platelet Vol. 10.6 fl (6.2-12.0); NRBC Flagged by Analyzer 0 % (0-5); Platelet Count 193 K/mm3 (150-450); RBC Distribution Width CV 14.6 % (11.6-14.6); RBC Distribution Width SD 46.5 fl (35.1-43.9); Red Blood Count 4.62 M/mm3 (4.6-6.2); White Blood Count 13.7 K/mm3 (4.4-11.0)
--- NOTE | 2025-04-30 14:48 | RAD_ITS ---
PROCEDURE: ACUTE ABDOMEN INC CHEST 04/30/2025 REASON FOR EXAM: PAIN Stage IV colon cancer. Abdominal pain. TECHNIQUE: Procedure Code: RADABDCA Modality: DX Procedure: ACUTE ABDOMEN INC CHEST COMPARISON: None FINDINGS: Hardware: A right-sided port a catheter is seen with the tip at the junction of the superior vena cava and right atrium. Heart: The heart size is normal. Lungs: Multiple bilateral pulmonary nodules in keeping with the metastatic deposits. Bowel gas: Moderate amount of fecal material is seen throughout the colon. No evidence of obstruction. Free air: No free air. Calcifications: No suspicious calcifications. Bones: There are degenerative changes of the spine. Other: RAD/Acute Abdomen Inc Chest IMPRESSION: Multiple pulmonary nodules in keeping with metastatic deposits. Moderate amount of fecal material is seen throughout the colon. Reading Location: [id number]
[2025-04-30 15:00] VITALS: BP 116/72; PULSE 80; RESP 18; O2SAT 96
[2025-04-30 15:22] VITALS: BMI 21.7
[2025-04-30 15:26] LABS: Squamous Epithelial Cells - UA 0 SEEN /hpf (0-5)
[2025-04-30 15:34] LABS: AST(SGOT) 24 U/L (<=37); Alanine Aminotransfer ALT/SGPT 12 U/L (<=46); Albumin, Serum 3.7 g/dL (3.4-4.8); Alkaline Phosphatase 59 U/L (40-129); Anion Gap 11 (5-15); BUN 16 mg/dL (4-19); BUN/Creat Ratio 21.0 RATIO (10-20); Calcium,Total 8.9 mg/dL (7.6-11.0); Carbon Dioxide 27.1 mmol/L (21.0-32.0); Chloride 101 mmol/L (98-108); Estimated Creatinine Clearance 73.51 ml/min (50-250); Globulin 2.9 g/dL (2.2-4.2); Glucose 97 mg/dL (70-99); Lipase 24 U/L (13-75); Potassium 3.8 mmol/L (3.3-5.1)
[2025-04-30 15:34] LABS: Color, Urine Yellow (Yellow); Glucose, Dipstick Normal (Normal); Ketone-Dipstick 150 mg/dl (Negative); Leukocyte Esterase-Dipstick Negative /ul (Negative); Nitrite-Dipstick Negative (Negative); Occult Blood-Urine 10 /ul (Negative); Protein-Dipstick 30 mg/dl (Negative); Specific Gravity, Urine 1.020 (1.002-1.030); Urine Bilirubin Dipstick Negative (Negative)
[2025-04-30 15:42] LABS: Mucous, Urine 1+ /hpf (<or=2+); Red Blood Cells-Urine 0-5 SEEN /hpf (0-5)
--- NOTE | 2025-04-30 16:09 | ED.VIS.GI ---
HPI HPI - GI History of Present Illness Chief Complaint: Abd Pain Informant: patient Abdominal Pain/Flank Pain Onset: Days Context: Gradual Onset Timing: Continuous Quality: Aching Location: Epigastric and - (Periumbilical, and suprapubic) Worsened by: Nothing Relieved by: Nothing Nausea/Vomiting/Emesis GI Symptom: Positive for Nausea and Vomiting Onset: Today Quality: Positive for Nonbilious (Stomach contents); Negative for Blood streaks, Coffee ground or Hematemesis Diarrhea/Melena/Hematochezia GI Symptom: Negative for Diarrhea, Melena or Hematochezia Associated Symptoms Associated Symptoms: Negative for Dysuria, Frequency or Hematuria Narrative Narrative: Patient presents with abdominal pain and chest pain that has been getting worse over the past few days. Patient states it is constant. Patient describes it as aching. Patient states his pain is mainly down the middle of his abdomen. Patient admits to decreased appetite. Patient admits to some nausea and vomiting. Patient denies any hematemesis or coffee-ground emesis. Patient admits to some constipation. Patient states he has been having hard bowel movements recently. Patient denies any dysuria, frequency, or hematuria. Patient states his pain radiates up into his chest. Patient admits to some weakness and headache. [facility] Medical History Fatigue Prerenal azotemia Dermatitis Wears hearing aid Wears glasses Cancer Anxiety Alcohol use Migraine headache COPD (chronic obstructive pulmonary disease) Former smoker History of stress test History of colon cancer EXCISION OF LUMP History of high cholesterol Rheumatoid arthritis Home Medications ?Medication ?Instructions ?Recorded ?Last Taken ?Type food supplemt, lactose-reduced 0.1 240 ml PO .QD 12/06/22 12/12/24 History gram-1.18 kcal/mL oral liquid (Ensure Complete) cholecalciferol (vitamin D3) 25 25 mcg PO QDAY 12/03/24 12/12/24 History mcg (1,000 unit) capsule multivitamin 1 tab PO DAILY 12/06/24 12/12/24 History diphenhydramine 25 1 tab PO QHS PRN 01/22/25 Unknown History mg-acetaminophen 500 mg tablet (Tylenol PM Extra Strength) dexamethasone 1 mg tablet 2 mg PO QDAY 03/17/25 Unknown History polyethylene glycol 3350 17 17 g PO DAILY PRN constipation 04/30/25 Unknown Rx gram/dose oral powder (Miralax) #119 grams Allergy/AdvReac Type Severity Reaction Status Date / Time No Known Allergies Allergy Verified 04/30/25 11:27 Family History Father Myocardial infarction Mother , AT THE AGE OF 100 Breast cancer Surgical History S/P hernia repair History of cardiac catheterization History of right hemicolectomy History of tonsillectomy History of appendectomy Social History Smoking Status: Former smoker quit date: 05/14/04 pack-years: 30 Tobacco: How many years used: 30 Electronic Cigarette Use: not used second hand exposure: Yes quit status: quit date established alcohol intake: current details: socially substance use type: does not use ROS ROS ED Constitutional Constitutional ED: Denies chills or fever(s) Eyes Eyes: Denies blurry vision or change in vision ENT ENT ED: Denies rhinorrhea or sore throat Cardiovascular Cardiovascular: Reports chest pain; Denies palpitations Respiratory/Chest Respiratory/Chest: Reports cough, dyspnea and sputum Gastrointestinal Gastrointestinal: Reports abdominal pain, constipation, nausea and vomiting Genitourinary Genitourinary ED: Denies dysuria or hematuria Musculoskeletal Musculoskeletal: Denies back pain or neck pain Integumentary Denies abscess or rash Neurologic Neurologic: Reports headache(s) and weakness Allergic/Immunologic Allergic/Immunologic ED: Denies mouth swelling or urticaria EXAM Physical Exam Const Vital Signs: 04/30/25 11:26 04/30/25 13:26 04/30/25 15:00 Temperature 97.3 F L Temperature Source Temporal Pulse Rate 86 82 80 Respiratory Rate 20 H 18 18 Blood Pressure 114/73 112/70 116/72 Blood Pressure Mean 86 84 86 Pulse Ox 93 96 96 Oxygen Delivery Method Room Air Room Air 04/30/25 17:00 Temperature Temperature Source Pulse Rate 80 Respiratory Rate 18 Blood Pressure 118/70 Blood Pressure Mean 86 Pulse Ox 96 Oxygen Delivery Method Positive well nourished and well developed General Appearance ED: well developed and NAD HEENT Reports moist mucous membranes Neck supple and no JVD Resp normal respiratory effort and clear to auscultation bilaterally Cardio regular rate and regular rhythm GI non-distended Palpation: soft and tender epigastric, periumbilical and suprapubic; Negative for guarding or rebound tenderness present Neuro CN's II-XII intact bilaterally, moves all extremities and no sensory deficits noted Sensorium / Orientation: alert, oriented to person, oriented to place and oriented to time Motor Exam: strength 5/5 throughout Psych mental status grossly normal MDM MDM MDM Narrative Medical decision making narrative: Differential diagnosis includes bowel obstruction, perforation, electrolyte abnormality, pneumonia, bronchitis, pancreatitis, urinary tract infection, and dehydration. CBC will be obtained to assess for leukocytosis and anemia. Comprehensive metabolic profile will be obtained to assess for hepatic function, renal function, and electrolyte abnormality. Lipase will be obtained to assess for pancreatitis. Urinalysis will be obtained to assess for urinary tract infection and hematuria. Lab Data Attestation: I reviewed the patient's lab results. Lab results narrative: CBC was reviewed. There is a mild leukocytosis of 13.7. The remainder is within normal limits. Comprehensive metabolic profile was reviewed and was within normal limits. Lipase was reviewed and was normal at 24. Urinalysis was reviewed. Urine ketones were 150. There is no evidence of urinary tract infection or hematuria. Labs: Laboratory Results - last 24 hr 04/30/25 04/30/25 14:30 15:10 WBC 13.7 H RBC 4.62 Hgb 13.9 Hct 40.9 MCV 88.5 MCH 30.1 MCHC 34.0 RDW Std Deviation 46.5 H RDW Coeff of Nate 14.6 Plt Count 193 MPV 10.6 Immature Gran % (Auto) 0.300 Neut % (Auto) 60.5 Lymph % (Auto) 35.5 Pickett % (Auto) 3.5 Eos % (Auto) 0.1 Baso % (Auto) 0.1 Absolute Neuts (auto) 8.3 H Absolute Lymphs (auto) 4.85 H Nucleated RBC % 0 Sodium 139 Potassium 3.8 Chloride 101 Carbon Dioxide 27.1 Anion Gap 11 BUN 16 Creatinine 0.76 Estim Creat Clear Calc 73.51 Est GFR (MDRD) Non-Af 91 BUN/Creatinine Ratio 21.0 H Glucose 97 Calcium 8.9 Total Bilirubin 0.47 AST 24 ALT 12 Alkaline Phosphatase 59 Total Protein 6.6 Albumin 3.7 Globulin 2.9 Albumin/Globulin Ratio 1.3 Lipase 24 Urine Color Yellow Urine Clarity Clear Urine pH 6.0 Ur Specific [place] 1.020 Urine Protein 30 H Urine Glucose (UA) Normal Urine Ketones 150 A* Urine Occult Blood 10 H Urine Nitrite Negative Urine Bilirubin Negative Urine Urobilinogen Normal Ur Leukocyte Esterase Negative Urine RBC 0-5 SEEN Urine WBC 0 SEEN Ur Squamous Epith Cells 0 SEEN Urine Bacteria 0 SEEN Hyaline Casts 0-5 SEEN Urine Mucus 1+ Radiography Diagnostic Testing: Clinical Impression(s) from Imaging Studies Acute Abdomen Series 04/30/25 14:48 IMPRESSION: Multiple pulmonary nodules in keeping with metastatic deposits. Moderate amount of fecal material is seen throughout the colon. Reading Location: [facility] Acute abdominal x-rays were obtained. There are 4 views. On my independent interpretation, there is no evidence of bowel obstruction or perforation. There is a moderate amount of fecal material throughout the colon. There are multiple pulmonary nodules consistent with metastatic disease. Radiologist also interpreted the x-rays and agrees. EKG Initial EKG: Attestation: I personally reviewed and interpreted this EKG as follows: Interpretation: Sinus Rhythm (71), No Acute Injury Pattern and LAFB Comments: EKG was obtained. On my independent interpretation, shows normal sinus rhythm with a rate of 71. MT interval was normal at 158 ms. QRS interval was normal at 102 ms. QTc interval was normal at 432 ms. There is left axis deviation noted at -57. There is a left anterior fascicular block noted. There are no acute ST or T wave changes noted. This was unchanged compared to previous EKG dated 12/10/2024. Prior EKG tracings: available for review Prior: Unchanged (12/10/2024) Treatment and Re-Evaluation :: Patient was advised of his findings. Patient was offered an enema here. Initially, patient declined the enema and preferred to go home with laxatives. However, patient change his mind prior to discharge. Patient was given a soapsuds enema. Patient had large results with the enema. Patient was given a prescription for MiraLAX. Patient was instructed to follow-up with his primary care physician and oncologist in 5 to 7 days. Patient understood and was agreeable with the plan. All questions were answered. 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 Instructions: ED Constipation (Adult) Prescriptions: New polyethylene glycol 3350 [Miralax] 17 gram/dose powder 17 g PO DAILY PRN (Reason: constipation) Qty: 119 0RF No Action Ensure Complete 0.1 gram-1.18 kcal/mL liquid 240 ml PO .QD dexamethasone 1 mg tablet 2 mg PO QDAY cholecalciferol (vitamin D3) 25 mcg (1,000 unit) capsule 25 mcg PO QDAY diphenhydramine-acetaminophen [Tylenol PM Extra Strength] 25-500 mg tablet 1 tab PO QHS PRN multivitamin Tablet 1 tab PO DAILY Primary Care Provider: Li Husain Referrals: Li Husain DO [Primary Care Provider, Internal Medicine] - 5-7 Days Print Language: Urdu Disposition Disposition: Home, Self Care
[2025-04-30 17:00] VITALS: BP 118/70; PULSE 80; RESP 18; O2SAT 96
[2025-04-30 17:17] VITALS: BP 137/83; PULSE 76; RESP 16; TEMP 37.2; O2SAT 94
== END 2025-04-30 17:18 | disposition home or self-care (01) ==
PROVIDERS: Emergency Provider Emergency Medicine; PCP Internal Medicine; Visit Provider Emergency Medicine
DX: K59.00 Constipation, unspecified (principal); C78.00 Secondary malignant neoplasm of unspecified lung; C18.9 Malignant neoplasm of colon, unspecified; J44.9 Chronic obstructive pulmonary disease, unspecified; R10.9 Unspecified abdominal pain; Z87.891 Personal history of nicotine dependence
CPT/HCPCS: 74022; 80053; 81001; 83690; 85025; 93005; 96374; 96375; 99284; A4216; J2405

== ENCOUNTER → 2025-05-12 | Outpatient (CLI) | payer MEDICARE, OTHER, SELFPAY ==
--- NOTE | 2025-05-12 13:28 | CT_ITS ---
PROCEDURE: CT CHEST AND ABD W/ CONTRAST 05/12/2025 REASON FOR EXAM: METASTATIC HEPATIC FLEXURE CA-IV ONLY TECHNIQUE: Chest and abdomen CT with intravenous contrast. Coronal and Sagittal reconstruction series were provided. One or more dose reduction techniques were used (e.g., Automated exposure control, adjustment of the mA and/or kV according to patient size, use of iterative reconstruction technique. PATIENT PREPARATION: Per protocol ORAL CONTRAST TYPE: None. AMOUNT: 0 mL CONTRAST: Isovue 300 VOLUME: 98mL RADIATION DOSE SUMMARY: CTDlvol: 30 mGy DLP: 596 mGycm COMPARISON: February 2025. FINDINGS: CHEST Thyroid gland: Negative. Lungs: Numerous bilateral pulmonary masses again noted he has continued to increase in size. On the right largest lesion 4.1 x 2.3 cm. Previous 3.8 x 2.0 cm. On the left largest lesion is lobulated and measures 3.8 by 3.5 cm previous measures 2.5 x 2.6 cm. Overall, extensive bilateral pulmonary metastatic lesions. Pleura: Negative for pleural effusion or pneumothorax. Airways: Imaged bronchi and trachea removed atnegative. Mediastinum: Negative for mediastinal mass. Lymph nodes: Negative for axillary, mediastinal or hilar adenopathy. Heart and Vasculature: Heart normal size. Ascending thoracic aorta measures 4.0 cm. Mild vascular calcifications of the thoracic aorta. Coronary Artery Calcifications: Moderate vascular calcifications of the coronary arteries Hardware: None. Bones and Soft Tissues: Compression deformity lower thoracic spine, old. No definitive lytic or sclerotic lesions. Age-appropriate degenerative changes of the thoracic spine. ABDOMEN Liver: No liver masses. Negative. Biliary system: Negative. Negative for intrahepatic or extrahepatic ductal dilatation. Gallbladder: Contracted negative for cholecystitis. Spleen: Negative. Pancreas: Negative. Adrenals: Negative. Kidneys: Negative. Negative for kidney stones, cysts or masses. Bowel: Negative for small or large-bowel obstruction. Appendix: Not visualized. No adjacent inflammatory process. Retroperitoneum, vasculature: Para-aortic lymph nodes again noted negative for atherosclerotic vascular calcifications of the abdominal aorta and its branches. Bones and Soft Tissues: Age appropriate degenerative changes of the lumbar spine hips and pelvis. CT/CT Chest AND Abd W/ Contrast IMPRESSION: Mild worsening diffuse pulmonary metastatic disease. Worsening intra-abdominal retroperitoneal adenopathy. Reading Location: [facility]
== END | disposition home or self-care (01) ==
LOC: CT 13:28
PROVIDERS: PCP Internal Medicine; Referring Provider Internal Medicine Medical Oncology; Visit Provider Internal Medicine Medical Oncology
DX: C18.3 Malignant neoplasm of hepatic flexure (principal); C78.00 Secondary malignant neoplasm of unspecified lung; C79.51 Secondary malignant neoplasm of bone
CPT/HCPCS: 71260; 74160; Q9967; A4216